=== PATIENT | male | born 1950 | race Caucasian/White ===

== ENCOUNTER 2023-04-28 12:42 | Outpatient (RCR) | payer OTHER, SELFPAY | END 2023-06-22 15:16 | disposition home or self-care (01) | LOC: PT 12:42 | DX: M54.16 Radiculopathy, lumbar region (principal) | CPT/HCPCS: 97113; 97161 ==

== ENCOUNTER 2024-07-17 08:19 | Outpatient (OUT) | payer OTHER, SELFPAY ==
--- OUTSIDE RECORDS SUMMARY | 2024-07-17 08:23 | XMS_ITS | CCD ---
Author Organization [facility] Care Team Providers Care Box Stapler Name Role Phone MIKAYLA, DR MORENO Admitting Unavailable MISC, DR MORENO Primary Care Unavailable MISC, DR MORENO Attending Unavailable BARBER, DR KAMAR Saleh Primary Care Unavailable MIS, DR MORENO Attending Unavailable MISC, DR MORENO Admitting Unavailable MIS, DR MORENO Consulting Unavailable ALONDRA, DR JULIAN Tirado Consulting Unavailable YOLIS BASS Primary Care Physician Romulo Russo Attending Unavailable Adan, LEI SELLER Laina Brady Attending Unavailable Pepito, DO Viet Haas Attending Provider John (Clinic), DO [place]os Primary Care Provider John (Clinic)Yolis Primary Care UnavailViet Meyer Attending Viet Ramos Admitting Unavai lable Allergies Allergy Classification Reported Allergen(s) Allergy Type Date of Onset Reaction(s) Facility (4 sources) Penicillin; Translations: [penicillin] Drug Allergy Eruption of skin (disorder) [facility] Repository Medications Current Medications Medication Drug Class(es) Dates Sig (Normalized) Sig (Original) atorvastatin (2 sources) HMG-CoA Reductase Inhibitor Start: 09-18-2021 atorvastatin Oral, Daily, Refills(s) 0, High cholesterol Start Date: 09/18/21 Status: Ordered Chlorthalidone (2 sources) Thiazide-like Diuretic Start: 09-18-2021 take 1 dose by mouth once daily chlorthalidone Oral, Daily, Refills(s) 0, diuretic/water pill Start Date: 09/18/21 Status: Ordered insulin aspart 100 units/mL injectable solution (2 sources) Start: 09-18-2021 insulin aspart 100 units/mL injectable solution SubCutaneous, TIDAC, Refills(s) 0, Blood glucose Start Date: 09/18/21 Status: Ordered Insulin Glargine (2 sources) Insulin Analog Start: 09-18-2021 inject 60 [IU] by subcutaneous injection twice daily insulin glargine 60 unit(s), SubCutaneous, BID, Refills(s) 0, Blood glucose Start Date: 09/18/21 Status: Ordered Lisinopril (2 sources) Angiotensin Converting Enzyme Inhibitor Start: 09-18-2021 lisinopril Oral, Daily, Refills(s) 0, High blood pressure Start Date: 09/18/21 Status: Ordered metFORMIN (2 sources) Biguanide Start: 09-18-2021 metformin Oral, Refills(s) 0, Blood glucose Start Date: 09/18/21 Status: Ordered 24 hr metoprolol succinate 100 mg extended release oral tablet (2 sources) beta-Adrenergic Diana Start: 09-18-2021 take 1 mg by mouth once daily metoprolol 100 mg ER Tab mg tab(s), Oral, Daily, Refills(s) 0, High blood pressure Start Date: 09/18/21 Status: Ordered Omeprazole (2 sources) Proton Pump Inhibitor Start: 09-18-2021 omeprazole Oral, Daily, Refills(s) 0, Control of stomach acid Start Date: 09/18/21 Status: Ordered pregabalin (2 sources) Start: 09-18-2021 pregabalin Oral, Refills(s) 0, Neuropathy Start Date: 09/18/21 Status: Ordered semaglutide (2 sources) Start: 09-18-2021 semaglutide Refills(s) 0, Blood glucose Start Date: 09/18/21 Status: Ordered tamsulosin (2 sources) alpha-Adrenergic Diana Start: 09-18-2021 take 1 mg by mouth once daily tamsulosin mg, Oral, Daily, Refills(s) 0, Other (see comment) Start Date: 09/18/21 Status: Ordered Problems Active Problems Problem Classification Problem Date Documented Da te Episodic/Chronic Anal and rectal conditions (2 sources) Rectal polyp; Translations: [Rectal polyp] Onset: 12-17-2021 Episodic Hemorrhoids (2 sources) Hemorrhoids; Translations: [Unspecified hemorrhoids] Onset: 12-17-2021 Episodic Other and unspecified benign neoplasm (3 sources) Polyp of colon; Translations: [Polyp of colon] Onset: 11-30-2021 Episodic Residual codes; unclassified (2 sources) Family history of cancer of colon 09-21-2021 Episodic Residual codes; unclassified (3 sources) Family history of polyp of colon; Translations: [Family history of colonic polyps] Onset: 12-17-2021 09-21-2021 Episodic Residual codes; unclassified (1 source) Family history of malignant neoplasm of digestive organ; Translations: [Family history of malignant neoplasm of digestive organs] Onset: 12-17-2021 Episodic Past or Other Problems Problem Classification Problem Date Documented Date Episodic/Chronic Malaise and fatigue (1 source) Weakness; Translations: [WEAKNESS] Onset: 06-05-2021 Episodic Other connective tissue disease (1 source) Pain in right leg; Translations: [PAIN IN RIGHT LEG] Onset: 06-05-2021 Episodic Other nervous system disorders (1 source) Other abnormalities of gait and mobility; Translations: [OTHER ABNORMALITIES GAIT AND MOBILITY] Onset: 06-05-2021 Episodic Other nervous system disorders (1 source) Unsteadiness on feet; Translations: [UNSTEADINESS ON FEET] Onset: 06-05-2021 Episodic Spondylosis; intervertebral disc disorders; other back problems (9 sources) Spinal stenosis, lumbar region with neurogenic claudication; Translations: [Radiculopathy, lumbar region] Onset: 04-20-2021 Episodic Results Test Name Value Interpretation Reference Range Facility Alanine aminotransferase [En zymatic activity/volume] in Serum or PlasmaOrdered By: Viet Beyer on 11-28-2023 ALT [Catalytic activity/Vol] 23 U/L 7-52 [facility] Albumin [Mass/volume] in Ser um or Plasma by Bromocresol green (BCG) dye binding methoOrdered By: Viet Beyer on 11-28-2023 Albumin BCG dye [Mass/Vol] 4.3 g/dL 3.5-5.7 [facility] Alkaline phosphatase [Enzyma tic activity/volume] in Serum or PlasmaOrdered By: Veit Beyer on 11-28-2023 ALP [Catalytic activity/Vol] 40 U/L 34-104 [facility] Aspartate aminotransferase [ Enzymatic activity/volume] in Serum or PlasmaOrdered By: Viet Beyer on 11-28-2023 AST [Catalytic activity/Vol] 16 U/L 13-39 [facility] Bilirubin Test strip Ql (U)O rdered By: Viet Beyer on 11-28-2023 Bilirubin Ql (U) Negative Negative [facility] Bilirubin.total [Mass/volume ] in Serum or PlasmaOrdered By: Viet Beyer on 11-28-2023 Bilirubin [Mass/Vol] 0.5 mg/dL 0.3-1.0 [facility] Calcium [Mass/volume] in Ser um or PlasmaOrdered By: Viet Beyer on 11-28-2023 Calcium [Mass/Vol] 9.5 mg/dL 8.6-10.3 [facility] Carbon dioxide, total [Moles /volume] in Serum or PlasmaOrdered By: Viet Beyer on 11-28-2023 CO2 [Moles/Vol] 30.7 mmol/L 21.0-31.0 [facility] Chloride [Moles/volume] in S christopher or PlasmaOrdered By: Viet Beyer on 11-28-2023 Chloride [Moles/Vol] 102 mmol/L 98-107 [facility] Color Auto (U)Ordered By: Rolan Beyer on 11-28-2023 Color (U) Yellow Yellow [facility] Comprehensive Metabolic Pane bryanna 11-28-2023 Albumin [Mass/Vol] 4.3 g/dL Normal 3.5-5.7 [facility] Comment on above: Performed By: #### C RADHA UA #### [facility] [address] [place] [address] Albumin/Globulin [Mass ratio] 1.7 {ratio} Normal [facility] Comment on above: Performed By: #### C RADHA UA #### [facility] [address] ALP [Catalytic activity/Vol] 40 U/L Normal 34-104 [facility] Comment on above: Result Comment: PERF ORMED BY: [place] [address] PATHOLOGIST CHAIR SPRINGER TERRELL PARIS M.D. Performed By: #### C MP, UA #### [facility] [address] [place] [address] [place] ALT [Catalytic activity/Vol] 23 U/L Normal 7-52 [facility] Comment on above: Performed By: #### C MP, UA #### [facility] [address] [place] [address] [place] Anion gap [Moles/Vol] 10.7 mmol/L Normal 6.0-15.0 [facility] Comment on above: Performed By: #### C MP, UA #### [facility] [address] AST [Catalytic activity/Vol] 16 U/L Normal 13-39 [facility] Comment on above: Performed By: #### C MP, UA #### [facility] [address] Bilirubin [Mass/Vol] 0.5 mg/dL Normal 0.3-1.0 [facility] Comment on above: Performed By: #### C MP, UA #### [facility] [address] [place] [address] [place] Calcium [Mass/Vol] 9.5 mg/dL Normal 8.6-10.3 [facility] Comment on above: Performed By: #### C MP, UA #### [facility] [address] [place] [address] [place] Chloride [Moles/Vol] 102 mmol/L Normal 98-107 [facility] Comment on above: Performed By: #### C MP, UA #### [facility] [address] [place] [id number] [place] CO2 [Moles/Vol] 30.7 mmol/L Normal 21.0-31.0 [facility] Comment on above: Performed By: #### C MP, UA #### [facility] [address] [place] [id number] [place] Creatinine [Mass/Vol] 1.34 mg/dL High 0.70-1.30 [facility] Comment on above: Performed By: #### C MP, UA #### [facility] [address] [place] [address] [place] GFR/1.73 sq M.predicted MDRD (S/P/Bld) [Vol rate/Area] 55.244 mL/min/{1.73_m2} Normal [facility] Comment on above: Performed By: #### C MP, UA #### [facility] [address] [place] [address] [place] Globulin (S) [Mass/Vol] 2.6 g/dL Normal [facility] Comment on above: Performed By: #### C MP, UA #### [facility] [address] Glucose [Mass/Vol] 143 mg/dL High 70-100 [facility] Comment on above: Result Comment: Formerly named [facility] Glucose Reference Range is dependent on time and content of last meal. Glucose of more than 200 mg/dL in a nonstressed, ambulatory subject supports the diagnosis of Diabetes Mellitus. ADA recommended reference range Performed By: #### C MP, UA #### [address] Potassium [Moles/Vol] 4.4 mmol/L Normal 3.5-5.1 [facility] Comment on above: Performed By: #### C MP, UA #### [address] Protein [Mass/Vol] 6.9 g/dL Normal 6.4-8.9 [facility] Comment on above: Performed By: #### C MP, UA #### [facility] [address] [place] [address] [place] Sodium [Moles/Vol] 139 mmol/L Normal 136-145 [facility] Comment on above: Performed By: #### C MP, UA #### [facility] [address] [place] [address] [place] Urea nitrogen [Mass/Vol] 23 mg/dL Normal 7-25 [facility] Comment on above: Performed By: #### C MP, UA #### [place] [id number] [facility] Creatinine [Mass/volume] in Serum or PlasmaOrdered By: Viet Beyer on 11-28-2023 Creatinine [Mass/Vol] 1.34 mg/dL 0.70-1.30 [facility] Globulin Calc (S) [Mass/Vol] Ordered By: Viet Damico on 11-28-2023 Globulin (S) [Mass/Vol] 2.6 g/dL [facility] Glucose [Mass/volume] in Ser um or PlasmaOrdered By: Viet Damico on 11-28-2023 Glucose [Mass/Vol] 143 mg/dL 70-100 [facility] Comment on above: ADA recommended refe rence rangeRandom Glucose Reference Range is dependent on time and content of last meal. Glucose of more than 200 mg/dL in a nonstressed, ambulatory subject supports the diagnosis of Diabetes Mellitus. Ketones Auto test strip (U) [Mass/Vol]Ordered By: Viet Beyer on 11-28-2023 Ketones (U) [Mass/Vol] Negative Negative [facility] Nitrite Test strip Ql (U)Ord ered By: Viet [facility] on 11-28-2023 Nitrite Ql (U) Negative Negative [facility] No Panel InformationOrdered By: Viet Beyer on 11-28-2023 Estimated GFR (CKD-EPI) 55.244 mL/Min [facility] Creatinine Clearance (Chem N/A [facility] Potassium [Moles/volume] in Serum or PlasmaOrdered By: Viet Beyer on 11-28-2023 Potassium [Moles/Vol] 4.4 mmol/L 3.5-5.1 [facility] Protein Auto test strip (U) [Mass/Vol]Ordered By: Viet Beyer on 11-28-2023 Protein (U) [Mass/Vol] Negative Negative [facility] Protein [Mass/volume] in Ser um or PlasmaOrdered By: Viet Damico on 11-28-2023 Protein [Mass/Vol] 6.9 g/dL 6.4-8.9 [facility] Serum or plasma albumin/glob ulin mass ratioOrdered By: Viet Damico on 11-28-2023 Albumin/Globulin [Mass ratio] 1.7 {ratio} [facility] Serum or plasma anion gap de terminationOrdered By: Viet Beyer on 11-28-2023 Anion gap [Moles/Vol] 10.7 mmol/L 6.0-15.0 [facility] Sodium [Moles/volume] in Ser um or PlasmaOrdered By: Viet Damico on 11-28-2023 Sodium [Moles/Vol] 139 mmol/L 136-145 [facility] Specific gravity Auto test s trip (U) [Rel density]Ordered By: Viet [facility] on 11-28-2023 Specific gravity (U) [Rel density] 1.032 1.001-1.030 [facility] Urea nitrogen [Mass/volume] in Serum or PlasmaOrdered By: Viet Damico on 11-28-2023 Urea nitrogen [Mass/Vol] 23 mg/dL 03-29 [facility] Urinalysison 11-28-2023 Appearance (U) Clear Normal Clear [facility] Comment on above: Order Comment: Name Collection Type:: Clean-Voided Midstream Performed By: #### C MP, UA #### [facility] [address] [place] [address] Bilirubin,Urine Negative Normal Negative [facility] Comment on above: Order Comment: Name Collection Type:: Clean-Voided Midstream Performed By: #### C MP, UA #### [facility] [address] [place] [address] [place] Color (U) Yellow Normal Yellow [facility] Comment on above: Order Comment: Name Collection Type:: Clean-Voided Midstream Performed By: #### C MP, UA #### [facility] [address] [place] [address] [place] Glucose Ql (U) >=1000 High Normal [facility] Comment on above: Order Comment: Name Collection Type:: Clean-Voided Midstream Performed By: #### C MP, UA #### [facility] [address] [place] [address] [place] Ketones Ql (U) Negative Normal Negative [facility] Comment on above: Order Comment: Name Collection Type:: Clean-Voided Midstream Performed By: #### C MP, UA #### [address] Leukocyte esterase Test strip Ql (U) Negative Normal Negative [facility] Comment on above: Order Comment: Name Collection Type:: Clean-Voided Midstream Performed By: #### C MP, UA #### [place] [address] [place] Nitrite,Urine Negative Normal Negative [facility] Comment on above: Order Comment: Name Collection Type:: Clean-Voided Midstream Performed By: #### C MP, UA #### [address] Occult Blood,Urine Negative Normal Negative [facility] Comment on above: Order Comment: Name Collection Type:: Clean-Voided Midstream Result Comment: PERF ORMED BY: [place] [address] PATHOLOGIST CHAIR SPRINGER TERRELL PARIS M.D. Performed By: #### C MP, UA #### [place] [address] [place] pH (U) 5.0 [pH] Normal 5.0-9.0 [facility] Comment on above: Order Comment: Name Collection Type:: Clean-Voided Midstream Performed By: #### C MP, UA #### [place] [address] [place] Protein,Urine Negative Normal Negative [facility] Comment on above: Order Comment: Name Collection Type:: Clean-Voided Midstream Performed By: #### C MP, UA #### [place] [address] [place] Specificy [place],Urine 1.032 High 1.001-1.030 [facility] Comment on above: Order Comment: Name Collection Type:: Clean-Voided Midstream Performed By: #### C MP, UA #### [address] [address] [place] Urobilinogen,Urine Normal Normal Normal [facility] Comment on above: Order Comment: Name Collection Type:: Clean-Voided Midstream Performed By: #### C MP, UA #### [facility] [address] [place] [id number] [place] Urine clarity by refractomet ry automatedOrdered By: Viet Beyer on 11-28-2023 Clarity Refractometry automated (U) Clear Clear [facility] Urine glucose measurement by automated test strip (mass/volume)Ordered By: Viet Beyer on 11-28-2023 Glucose Auto test strip (U) [Mass/Vol] >=1000 mg/dL Normal [facility] Urine hemoglobin detection b y automated test stripOrdered By: Viet Beyer on 11-28-2023 Hemoglobin Auto test strip Ql (U) Negative Negative [facility] Urine leukocyte esterase det ection by automated test stripOrdered By: [facility] Leukocyte esterase Auto test strip Ql (U) Negative Negative [facility] Urobilinogen Auto test strip (U) [Mass/Vol]Ordered By: [facility] on 11-28-2023 Urobilinogen (U) [Mass/Vol] Normal mg/dL Normal [facility] pH Auto test strip (U)Ordere d By: Viet Damico on 11-28-2023 pH (U) 5.0 [pH] 5.0-9.0 [facility] Family Medicine Office/Clini c Noteon 06-22-2023 Family Medicine Office/Clinic Note Chief Complaint Subsequent Medicare Wellness Visit History of Present Illness I was in the office and available for consultation and to provide direct supervision at the time of this visit. I have provided supervision of the care team and have reviewed this chart and office note and agree with the plan of care. Medicare/Medicaid Summary Chief Complaint : Subsequent Medicare Wellness Visit Patient Counseled : Nutrition, Physical activity, Elevated BMI Height/Length Measured : 181 cm(Converted to: 5 ft 11 in, 71.26 in) Weight Measured : 131.4 kg(Converted to: 289 lb 11 Ounces, 289.687 lb) Body Mass Index Measured : 40.11 kg/m2 Height in Inches : 71 in Weight in Pounds : 289.08 lb Waist Measurement : 140 cm(Converted to: 55 in) Systolic Blood Pressure : 128 mmHg Diastolic Blood Pressure : 70 mmHg Blood Pressure Location : Left arm Blood Pressure Position : Sitting O2 Sat Resting/Exertion Alpha : Resting Peripheral Pulse Rate : 71 bpm SpO2 : 94 % Pain Present : No actual or suspected pain Numeric Rating Pain Score : 5 Joel Holliday - 06/17/2023 10:30 EDT Patient Preferred Method of Communication Phone Call Hearing and Vision Screening FT FT Whisper Test Comments : no issues or concerns Vision Screen Comments : Follows Dr. Simons yearly Joel Holliday - 06/17/2023 10:30 EDT Advance Directive FT Advance Directive : No Patient Wishes to Receive Further Information on Advance Directives : Yes Organ Donation Consent : Yes Joel Holliday - 06/17/2023 10:30 EDT Procedures / Surgeries FT - Procedure History (As Of: 06/17/2023 11:02:07 EDT) Anesthesia Minutes: 0 ; Procedure Name: Colonoscopy ; Procedure Minutes: 0 ; Last Reviewed Dt/Tm: 06/17/2023 10:55:00 EDT Procedure Dt/Tm: 11/30/2021 ; Provider: Yamileth KIM MD; Anesthesia Minutes: 0 ; Procedure Name: Colonoscopy ; Procedure Minutes: 0 ; Comments: 11/30/2021 14:36 EDT - Stacey King RN colon polyps x4, IH ; Last Reviewed Dt/Tm: 06/17/2023 10:55:00 EDT Family History Family History (As Of: 06/17/2023 11:02:08 EDT) Mother: Relation: Mother ; Gender: Female ; Nomenclature: Diabetes mellitus type 2 ; Value: Negative Medicare/Medicaid Social History FT Social History (As Of: 06/17/2023 11:02:08 EDT) Alcohol: 1-2 times per week, Household alcohol concerns: No. (Last Updated: 06/17/2023 10:56:28 EDT by Joel Holliday) Tobacco: Former smoker, quit more than 30 days ago Tobacco Use:. Household tobacco concerns: No. Comments: 06/17/2023 10:58 - Joel Holliday: quit in 1976 (Last Updated: 06/17/2023 10:58:25 EDT by Joel Holliday) Health Risk Assessment FT HRA little interest or pleasure? : No HRA down, depressed, or hopeless? : No Hazards in your house? : No Fall Risk Past Year : No Worried About Falling : No Use a Cane or Walker? : Yes Someone Helps You in the Morning : No Fallen or felt dizzy standing up? : No Assistance with personal care? : No Trouble taking meds correctly? : No HRA Pain Present : Yes Primary Pain Location : Back Numeric Rating Pain Scale : 5 = Moderate pain Numeric Rating Pain Score : 5 (Comment: is currently enrolled in PT, takes tylenol as needed, states effective [Joel Holliday 06/17/2023 10:30 EDT] ) Able to walk without help? : Yes Ability to shop w/out help : Yes Prepare your own meals? : Yes Housework without help? : Yes Handle money without help : Yes Track own medications without help? : Yes Overall mood for past four weeks : Pretty well General health rating : Good Someone avail. to help if needed? : Yes, quite a bit Phys. & emotional health limit social act? : Slightly Joel Holliday 06/17/2023 10:30 EDT Misc Health Risks Grid Sexual problems : Always Trouble eating well : Seldom Teeth or denture problems : Sometimes Problems using the telephone : Sometimes Joel Holliday 06/17/2023 10:30 EDT Confident you control health problems : Somewhat confident Difficulties driving your car? : No Seatbelts : I always fasten my seat belt Joel Holliday 06/17/2023 10:30 EDT Depression Screening Little Interest, Pleasure in Activities (ref) : Not at all Feeling Down, Depressed, Hopeless : Not at all Initial Depression Screening Score : 0 Depression Screening Result : Negative Joel Holliday 06/17/2023 10:30 EDT Social Determinants (PRAPARE) What is your housing situation today? : I have housing You or Family Gone Without Household Needs Past Year : No No Transport to Med Appts/Meetings/Work /Meds/Necessities : No Afraid of Partner or Ex-partner in the Past Year : No Joel Holliday 06/17/2023 10:30 EDT Mini-Cog FT CDT(Clock Drawing Test) score : Normal # of Recalled Words : 3 Mini-Cog Score : Negative for cognitive impairment Joel Holliday - 06/17/2023 10:30 EDT Mini-Mental State Examination (MMSE) FT Date : 06/17/2023 EDT Joel Holliday - 06/17/2023 10:30 EDT Image 1 - Images current (more content not included)... Normal [facility] Comment on above: Result Comment: Elec tronically Signed By: Romulo Russo MD\.br\Date and Time Signed: 06/22/23 12:06 EDT\.br\Electronically Co-Signed By: Joel Holliday\.br\Date and Time Co-Signed: 06/17/23 13:25 EDT [facility] 06-22-2023 Lab Reports [id number] Normal [facility] 06-20-2023 Lab Reports [id number] Normal [facility] Ambulatory Visit Summaryon 1 Ambulatory Visit Summary ZI GARCIA :1950 Visit Date:06/17/2023 Ambulatory Visit Instructions Your Diagnosis Annual visit for general adult medical examination without abnormal findings Advanced care planning/counseling discussion Diabetes mellitus Morbid obesity due to excess calories Adult BMI 40.0-44.9 kg/sq m Hyperlipidemia Sleep apnea Your Care Team Attending Physician - Laina Luna Primary Care Physician - YOLIS BASS DO This Is Your Medications List ascorbic acid aspirin atorvastatin chlorthalidone cholecalciferol clotrimazole cyanocobalamin diclofenac empagliflozin garlic icosapent (Icosapent Ethyl) insulin aspart (insulin aspart 100 units/mL injectable solution) insulin glargine lisinopril metformin metoprolol (metoprolol 100 mg ER Tab) miconazole omeprazole pregabalin psyllium semaglutide tamsulosin vitamin E Procedures Performed Colonoscopy (11/30/2021), Colonoscopy. Discharge Vitals Heart Rate (Peripheral) 71 Blood Pressure 128/70 Height 181 cm Height 71 in Weight 131.4 kg Weight 289.08 lb BMI 40.11 What to do next Scheduled Follow-Up Appointments Tuesday 11:00 AM EDT Where: [facility] Ambulatory Visit Summary ZI GARCIA :1950 Visit Date:06/17/2023 Ambulatory Visit Instructions Your Care Team Attending Physician - Laina Luna Primary Care Physician - YOLIS BASS DO This Is Your Medications List atorvastatin chlorthalidone insulin aspart (insulin aspart 100 units/mL injectable solution) insulin glargine lisinopril metformin metoprolol (metoprolol 100 mg ER Tab) omeprazole pregabalin semaglutide tamsulosin Procedures Performed Colonoscopy (11/30/2021), Colonoscopy. Discharge Vitals Heart Rate (Peripheral) 71 Blood Pressure 128/70 Height 181 cm Height 71 in Weight 131.4 kg Weight 289.08 lb BMI 40.11 Medications What How Much When Instructions Unchanged atorvastatin By Mouth Every day Unchanged chlorthalidone By Mouth Every day Unchanged insulin aspart (insulin aspart 100 units/ mL injectable solution) Subcutaneous Before meals Unchanged insulin glargine 60 Units Subcutaneous 2 times a day Unchanged lisinopril By Mouth Every day Unchanged metformin By Mouth Unchanged metoprolol (metoprolol 100 mg ER Tab) By Mouth Every day Unchanged omeprazole By Mouth Every day Unchanged pregabalin By Mouth Unchanged semaglutide Unchanged tamsulosin By Mouth Every day Allergies penicillin (Rash) Problems Ongoing - Any problem that you are currently receiving treatment for. Colon polyps Diabetes mellitus Family history of colon cancer Family history of polyps in the colon Hemorrhoids Hyperlipidemia Rectal polyp Sleep apnea [facility] Auth for Release of Medical Recordson 06-17-2023 Auth for Release of Medical Records [id number] [facility] Patient Educationon 06-17-20 23 Patient Education Caregiving Fall Prevention in the Home, Adult Falls can cause injuries and affect people of all ages. There are many simple things that you can do to make your home safe and to help prevent falls. Ask for help when making these changes, if needed. What actions can I take to prevent falls? General instructions ? Use good lighting in all rooms. Replace any light bulbs that burn out, turn on lights if it is dark, and use night-lights. ? Place frequently used items in [id number]-dl-[id number] places. Lower the shelves around your home if necessary. ? Set up furniture so that there are clear paths around it. Avoid moving your furniture around. ? Remove throw rugs and other tripping hazards from the floor. ? Avoid walking on wet floors. ? Fix any uneven floor surfaces. ? Add color or contrast paint or tape to grab bars and handrails in your home. Place contrasting color strips on the first and last steps of staircases. ? When you use a stepladder, make sure that it is completely opened and that the sides and supports are firmly locked. Have someone hold the ladder while you are using it. Do not climb a closed stepladder. ? Know where your pets are when moving through your home. What can I do in the bathroom? ? Keep the floor dry. Immediately clean up any water that is on the floor. ? Remove soap buildup in the tub or shower regularly. ? Use nonskid mats or decals on the floor of the tub or shower. ? Attach bath mats securely with double-sided, nonslip rug tape. ? If you need to sit down while you are in the shower, use a plastic, nonslip stool. ? Install grab bars by the toilet and in the tub and shower. Do not use towel bars as grab bars. What can I do in the bedroom? ? Make sure that a bedside light is easy to reach. ? Do not use oversized bedding that reaches the floor. ? Have a firm chair that has side arms to use for getting dressed. What can I do in the kitchen? ? Clean up any spills right away. ? If you need to reach for something above you, use a sturdy step stool that has a grab bar. ? Keep electrical cables out of the way. ? Do not use floor kyrgyz or wax that makes floors slippery. If you must use wax, make sure that it is non-skid floor wax. What can I do with my stairs? ? Do not leave any items on the stairs. ? Make sure that you have a light switch at the top and the bottom of the stairs. Have them installed if you do not have them. ? Make sure that there are handrails on both sides of the stairs. Fix handrails that are broken or loose. Make sure that handrails are as long as the staircases. ? Install non-slip stair treads on all stairs in your home. ? Avoid having throw rugs at the top or bottom of stairs, or secure the rugs with carpet tape to prevent them from moving. ? Choose a carpet design that does not hide the edge of steps on the stairs. ? Check any carpeting to make sure that it is firmly attached to the stairs. Fix any carpet that is loose or worn. What can I do on the outside of my home? ? Use bright outdoor lighting. ? Regularly repair the edges of walkways and driveways and fix any cracks. ? Remove high doorway thresholds. ? Trim any shrubbery on the main path into your home. ? Regularly check that handrails are securely fastened and in good repair. Both sides of all steps should have handrails. ? Install guardrails along the edges of any raised decks or porches. ? Clear walkways of debris and clutter, including tools and rocks. ? Have leaves, snow, and ice cleared regularly. ? Use sand or salt on walkways during winter months. ? In the garage, clean up any spills right away, including grease or oil spills. What other actions can I take? ? Wear closed-toe shoes that fit well and support your feet. Wear shoes that have rubber soles or low heels. ? Use mobility aids as needed, such as canes, walkers, scooters, and crutches. ? Review your medicines with your health care provider. Some medicines can cause dizziness or changes in blood pressure, which increase your risk of falling. Talk with your health care provider about other ways that you can decrease your risk of falls. This may include working with a physical therapist or driver trainer to improve your strength, balance, and endurance. Where to find more information ? Centers for Disease Control and Prevention, [place]: www.cdc.gov ? National [place] on Aging: www.dat.nih.gov Contact a health care provider if: ? You are afraid of falling at home. ? You feel weak, drowsy, or dizzy at home. ? You fall at home. Summary ? There are many simple things that you can do to make your home safe and to help prevent falls. ? Ways to make your home safe include removing tripping hazards and installing grab bars in the bathroom. ? Ask for help when making these changes in your home. This information is not intended to replace advice given to you by your health ca (more content not included)... Normal [facility] Screenson 06-17-2023 Screens [id number] Normal [facility] MRI LSPINE WO CONon 04-20-20 21 MRI LSPINE WO CON EXAMINATION: MRI LSPINE WO CON HISTORY: Lumbar radiculopathy with perceived weakness, bilateral leg pain COMPARISON: MRI lumbar spine 08/13/2020 TECHNIQUE: A variety of imaging planes and parameters were utilized for visualization of suspected pathology. FINDINGS: For the purposes of numbering, sagittal T2 image # 7 extends from the T11-12 vertebral body superiorly to the S3 level inferiorly. PARASPINAL AREA: Normal with no visible mass. BONES: No fracture, pars defect, or osseous lesion. CORD/CAUDA EQUINA: Normal caliber, contour, and signal intensity. DISC LEVELS: 12-L1: No significant disc/facet abnormality, spinal stenosis, or foraminal stenosis. L1-L2: No significant disc/facet abnormality, spinal stenosis, or foraminal stenosis. L2-L3: Moderate central canal and left foramen narrowing. Mild-moderate right foramen narrowing. Moderate diffuse disc bulging without disc height reduction. Mild degenerative facet arthropathy and ligamentum flavum thickening bilaterally. L3-L4: Moderate central canal and left foramen narrowing. Mild to moderate right foramen narrowing. Moderate diffuse disc bulging without disc height reduction. Moderate left, mild right degenerative facet arthropathy. L4-L5: Minimal central canal and bilateral foramen narrowing. Mild diffuse disc bulging without disc height reduction. Moderate degenerative facet arthropathy bilaterally. L5-S1: Early degenerative disc disease is present without focal protrusion or neural impingement. IMPRESSION: 1. Moderate central canal and foraminal narrowing at L2-3 and L3-4 secondary to degenerative disc disease and degenerative facet arthropathy. Electronically authenticated by: JULIAN CANTU Date: 2021-04-20 14:45 Normal [facility] XR LSPINE 2_3 VIEWSon 2020 XR LSPINE 2_3 VIEWS EXAMINATION: XR LSPINE 2_3 VIEWS HISTORY: Lumbar radiculopathy ; chronic lumbar pain radiating into right thigh COMPARISON: No relevant comparison available. FINDINGS: BONES: Mild degenerative facet arthropathy L3-4 through L5-S1. No fracture, spondylolisthesis, bone lesion. DISC SPACES: Posterior disc-osteophyte complexes at L2-3, L3-4, and likely L4-5, L5-S1. No significant disc height reduction at these levels. PARASPINOUS: Negative. No paraspinous abnormality is seen. OTHER: Negative. IMPRESSION: 1. Suspect mild-moderate posterior disc bulging and mild degenerative facet arthropathy of the mid and lower lumbar spine. Consider MRI for further evaluation. Electronically authenticated by: JULIAN CANTU Date: 2021-04-20 11:25 Normal [facility] Vital Signs Date Time Vital Sign Value Performing Clinician Facility 12-17-2021 11:48-0400 Diastolic blood pressure 73 mm[Hg] KaitlinJoySportsLuna [facility] 12-17-2021 11:48-0400 Mean blood pressure 94 mm[Hg] Akitlin Luna [facility] 12-17-2021 11:48-0400 Systolic blood pressure 135 mm[Hg] Kaitlin Luna [facility] 12-17-2021 11:43-0400 Diastolic blood pressure 71 mm[Hg] Kaitlin Luna [facility] 12-17-2021 11:43-0400 Mean blood pressure 98 mm[Hg] Kaitlin Luna [facility] 12-17-2021 11:43-0400 Systolic blood pressure 151 mm[Hg] Kaitlinzaheer HuttonLuna [facility] 12-17-2021 11:35-0400 Blood Pressure Location Kaitlinzaheer HuttonLuna [facility] 12-17-2021 11:35-0400 Diastolic blood pressure 77 mm[Hg] Kaitlinzaheer HuttonLuna [facility] 12-17-2021 11:35-0400 Heart rate 71 /min Kaitlinzaheer HuttonLuna [facility] 12-17-2021 11:35-0400 SaO2% (BldA) [Mass fraction] 93 % Kaitlinzaheer HuttonLuna [facility] 12-17-2021 11:35-0400 Systolic blood pressure 182 mm[Hg] Kaitlinzaheer HuttonLuna [facility] 11-30-2021 14:15-0400 Diastolic blood pressure 98 mm[Hg] Carson SALAM [facility] 11-30-2021 14:15-0400 Heart rate 65 /min Carson SALAM [facility] 11-30-2021 14:15-0400 Respiratory rate 18 /min Carson SALAM [facility] 11-30-2021 14:15-0400 SaO2% (BldA) [Mass fraction] 92 % Carson SALAM [facility] 11-30-2021 14:15-0400 Systolic blood pressure 159 mm[Hg] Carson SALAM [facility] 11-30-2021 14:00-0400 Diastolic blood pressure 105 mm[Hg] Carson SALAM [facility] 11-30-2021 14:00-0400 Heart rate 68 /min Carson SALAM [facility] 11-30-2021 14:00-0400 SaO2% (BldA) [Mass fraction] 95 % Carson SALAM [facility] 11-30-2021 14:00-0400 Systolic blood pressure 181 mm[Hg] Carson SALAM [facility] 11-30-2021 13:55-0400 Diastolic blood pressure 91 mm[Hg] Carson SALAM [facility] 11-30-2021 13:55-0400 Heart rate 90 /min Carson SALAM [facility] 11-30-2021 13:55-0400 Respiratory rate 14 /min Carson SALAM [facility] 11-30-2021 13:55-0400 SaO2% (BldA) [Mass fraction] 94 % Carson SALAM [facility] 11-30-2021 13:55-0400 Systolic blood pressure 157 mm[Hg] Carson SALAM [facility] 11-30-2021 13:52-0400 Body temperature 96.98 [degF] Carson SALAM [facility] 11-30-2021 13:52-0400 Respiratory rate 17 /min Carson SALAM [facility] 11-30-2021 12:31-0400 Blood Pressure Location Carsonjordyn KIM [facility] 11-30-2021 12:31-0400 Body temperature 98.06 [degF] Yamileth KIM [facility] Encounters Encounter Date Encounter Type Care Provider Facility Start: 06-19-2024 ambulatory Romulo Russo Facility :[facility] Start: 11-28-2023 End: 11-28-2023 ambulatory Yolis Bass (Clinic) Facility:[facility] Start: 11-28-2023 End: 11-28-2023 ambulatory DO Yolis Bass (Clinic) Work Phone: [facility] Work Phone: Start: 11-28-2023 End: 11-28-2023 Patient encounter procedure DO Yolis Bass ([facility]) Work Phone: [facility] [place] Work Phone: Start: 06-17-2023 End: 06-18-2023 ambulatory LEI SELLER Laina Arellano Facility:[facility] Start: 12-17-2021 End: 12-17-2021 Patient encounter procedure Kaitlin Carrasco [facility] Start: 11-30-2021 End: 11-30-2021 Patient encounter procedure Yamileth KIM [facility] Start: 06-02-2021 End: 07-23-[address] DOCTOR DEGROOT Facility:[facility] Start: 04-20-2021 End: 04-21-[address] KAMAR BARBER Facility:[facility] Procedures Date Procedure Procedure Detail Performing Clinician Start: 11-30-2021 Colonoscopy Yamileth Avila Comment on above: colon polyps x4, [facility] Colonoscopy Yamileth KIM Payers Date Payer Category Payer Self-pay 2021 Unknown [id number] 2019 Unknown [id number] 1950 Unknown [id number] 1950 Unknown [id number] [id number] 1950 Unknown [id number] [id number] 1950 Unknown [id number] Unknown [id number] [id number] Social History Date Type Detail Facility Start: 09-21-2021 End: 12-17-2021 Tobacco smoking status Ex-smoker (finding) [facility] Sex Assigned At Male [facility] Start: 1950 Sex Assigned At Male F [facility] Hospital Discharge instructions 12-17-2021 Note Date & Type Note Facility 12-17-2021 Hospital Discharg e instructions Patient Education 12/17/2021 11:21:48 High-Fiber Diet High-Fiber Diet Fiber, also called dietary fiber, is a type of carbohydrate that is found in fruits, vegetables, whole grains, and beans. A high-fiber diet can have many health benefits. Your health care provider may recommend a high-fiber diet to help: Prevent constipation. Fiber can make your bowel movements more regular. Lower your cholesterol. Relieve the following conditions: ?Swelling of veins in the anus (hemorrhoids). ?Swelling and irritation (inflammation) of specific areas of the digestive tract (uncomplicated diverticulosis). ?A problem of the large intestine (colon) that sometimes causes pain and diarrhea (irritable bowel syndrome, IBS). Prevent overeating as part of a weight-loss plan. Prevent heart disease, type 2 diabetes, and certain cancers. What is my plan? The recommended daily fiber intake in grams (g) includes: 38 g for men age 50 or younger. 30 g for men over age 50. 25 g for women age 50 or younger. 21 g for women over age 50. You can get the recommended daily intake of dietary fiber by: Eating a variety of fruits, vegetables, grains, and beans. Taking a fiber supplement, if it is not possible to get enough fiber through your diet. What do I need to know about a high-fiber diet? It is better to get fiber through food sources rather than from fiber supplements. There is not a lot of research about how effective supplements are. Always check the fiber content on the nutrition facts label of any prepackaged food. Look for foods that contain 5 g of fiber or more per serving. Talk with a diet and ultrasound specialist (dietitian) if you have questions about specific foods that are recommended or not recommended for your medical condition, especially if those foods are not listed below. Gradually increase how much fiber you consume. If you increase your intake of dietary fiber too quickly, you may have bloating, cramping, or gas. Drink plenty of water. Water helps you to digest fiber. What are tips for following this plan? Eat a wide variety of high-fiber foods. Make sure that half of the grains that you eat each day are whole grains. Eat breads and cereals that are made with whole-grain flour instead of refined flour or white flour. Eat brown rice, bulgur wheat, or millet instead of white rice. Start the day with a breakfast that is high in fiber, such as a cereal that contains 5 g of fiber or more per serving. Use beans in place of meat in soups, salads, and pasta dishes. Eat high-fiber snacks, such as berries, raw vegetables, nuts, and popcorn. Choose whole fruits and vegetables instead of processed forms like juice or sauce. What foods can I eat? Fruits Berries. Pears. Apples. Oranges. Avocado. Prunes and raisins. Dried figs. Vegetables Sweet potatoes. Spinach. Kale. Artichokes. Cabbage. Broccoli. Cauliflower. Green peas. Carrots. Squash. Grains Whole-grain breads. Multigrain cereal. Oats and oatmeal. Brown rice. Barley. Bulgur wheat. Millet. Quinoa. Bran muffins. Popcorn. [place] wafer crackers. Meats and other proteins Minto, kidney, and escobar beans. Soybeans. Split peas. Lentils. Nuts and seeds. Dairy Fiber-fortified yogurt. Beverages Fiber-fortified soy milk. Fiber-fortified orange juice. Other foods Fiber bars. The items listed above may not be a complete list of recommended foods and beverages. Contact a dietitian for more options. What foods are not recommended? Fruits Fruit juice. Cooked, strained fruit. Vegetables Fried potatoes. Canned vegetables. Well-cooked vegetables. Grains White bread. Pasta made with refined flour. White rice. Meats and other proteins Fatty cuts of meat. Fried chicken or fried fish. Dairy Milk. Yogurt. Cream cheese. Sour cream. Fats and oils [place]. Beverages Soft drinks. Other foods Cakes and pastries. The items listed above may not be a complete list of foods and beverages to avoid. Contact a dietitian for more information. Summary Fiber is a type of carbohydrate. It is found in fruits, vegetables, whole grains, and beans. There are many health benefits of eating a high-fiber diet, such as preventing constipation, lowering blood cholesterol, helping with weight loss, and reducing your risk of heart disease, diabetes, and certain cancers. Gradually increase your intake of fiber. Increasing too fast can result in cramping, bloating, and gas. Drink plenty of water while you increase your fiber. The best sources of fiber include whole fruits and vegetables, whole grains, nuts, seeds, and beans. This information is not intended to replace advice given to you by your health care provider. Make sure you discuss any questions you have with your health care provider. Document Released: 2006 Document Revised: 06/26/2018 Document Reviewed: 06/26/2018 evly Patient Education 2020 [employer]. 12/17/2021 11:21:45 Hemorrhoids Hemorrhoids Hemorrhoids are swollen veins in and around the rectum or anus. There are two types of hemorrhoids: Internal hemorrhoids. These occur in the veins that are just inside the rectum. They may poke through to the outside and become irritated and painful. External hemorrhoids. These occur in the veins that are outside the anus and can be felt as a painful swelling or hard lump near the anus. Most hemorrhoids do not cause serious problems, and they can be managed with home treatments such as diet and lifestyle changes. If home treatments do not help the symptoms, procedures can be done to shrink or remove the hemorrhoids. What are the causes? This condition is caused by increased pressure in the anal area. This pressure may result from various things, including: Constipation. Straining to have a bowel movement. Diarrhea. . Obesity. Sitting for long periods of time. Heavy lifting or other activity that causes you to strain. Anal sex. Riding a bike for a long period of time. What are the signs or symptoms? Symptoms of this condition include: Pain. Anal itching or irritation. Rectal bleeding. Leakage of stool (feces). Anal swelling. One or more lumps around the anus. How is this diagnosed? This condition can often be diagnosed through a visual exam. Other exams or tests may also be done, such as: An exam that involves feeling the rectal area with a gloved hand (digital rectal exam). An exam of the anal canal that is done using a small tube (anoscope). A blood test, if you have lost a significant amount of blood. A test to look inside the colon using a flexible tube with a camera on the end (sigmoidoscopy or colonoscopy). How is this treated? This condition can usually be treated at home. However, various procedures may be done if dietary changes, lifestyle changes, and other home treatments do not help your symptoms. These procedures can help make the hemorrhoids smaller or remove them completely. Some of these procedures involve surgery, and others do not. Common procedures include: Rubber band ligation. Rubber bands are placed at the base of the hemorrhoids to cut off their blood supply. Sclerotherapy. Medicine is injected into the hemorrhoids to shrink them. Infrared coagulation. A type of light energy is used to get rid of the hemorrhoids. Hemorrhoidectomy surgery. The hemorrhoids are surgically removed, and the veins that supply them are tied off. Stapled hemorrhoidopexy surgery. The surgeon taylor the base of the hemorrhoid to the rectal wall. Follow these instructions at home: Eating and drinking Eat foods that have a lot of fiber in them, such as whole grains, beans, nuts, fruits, and vegetables. Ask your health care provider about taking products that have added fiber (fiber supplements). Reduce the amount of fat in your diet. You can do this by eating low-fat dairy products, eating less red meat, and avoiding processed foods. Drink enough fluid to keep your urine pale yellow. Managing pain and swelling Take warm sitz baths for 20 minutes, 3 4 times a day to ease pain and discomfort. You may do this in a bathtub or using a portable sitz bath that fits over the toilet. If directed, apply ice to the affected area. Using ice packs between sitz baths may be helpful. ?Put ice in a plastic bag. ?Place a towel between your skin and the bag. ?Leave the ice on for 20 minutes, 2 3 times a day. General instructions Take rmvh-pwy-zlfcxew and prescription medicines only as told by your health care provider. Use medicated creams or suppositories as told. Get regular exercise. Ask your health care provider how much and what kind of exercise is best for you. In general, you should do moderate exercise for at least 30 minutes on most days of the week (150 minutes each week). This can include activities such as walking, biking, or yoga. Go to the bathroom when you have the urge to have a bowel movement. Do not wait. Avoid straining to have bowel movements. Keep the anal area dry and clean. Use wet toilet paper or moist towelettes after a bowel movement. Do not sit on the toilet for long periods of time. This increases blood pooling and pain. Keep all follow-up visits as told by your health care provider. This is important. Contact a health care provider if you have: Increasing pain and swelling that are not controlled by treatment or medicine. Difficulty having a bowel movement, or you are unable to have a bowel movement. Pain or inflammation outside the area of the hemorrhoids. Get help right away if you have: Uncontrolled bleeding from your rectum. Summary Hemorrhoids are swollen veins in and around the rectum or anus. Most hemorrhoids can be managed with home treatments such as diet and lifestyle changes. Taking warm sitz baths can help ease pain and discomfort. In severe cases, procedures or surgery can be done to shrink or remove the hemorrhoids. This information is not intended to replace advice given to you by your health care provider. Make sure you discuss any questions you have with your health care provider. Document Released: 08/19/2001 Document Revised: 01/18/2020 Document Reviewed: 01/11/2019 [employer] Patient Education 2020 [employer] 12/17/2021 11:21:43 Colon Polyps Colon Polyps Polyps are tissue growths inside the body. Polyps can grow in many places, including the large intestine (colon). A polyp may be a round bump or a mushroom-shaped growth. You could have one polyp or several. Most colon polyps are noncancerous (benign). However, some colon polyps can become cancerous over time. Finding and removing the polyps early can help prevent this. What are the causes? The exact cause of colon polyps is not known. What increases the risk? You are more likely to develop this condition if you: Have a family history of colon cancer or colon polyps. Are older than 50 or older than 45 if you are . Have inflammatory bowel disease, such as ulcerative colitis or Crohn's disease. Have certain hereditary conditions, such as: ?Familial adenomatous polyposis. ?Gallego syndrome. ?Turcot syndrome. ?Peutz Jeghers syndrome. Are overweight. Smoke cigarettes. Do not get enough exercise. Drink too much alcohol. Eat a diet that is high in fat and red meat and low in fiber. Had childhood cancer that was treated with abdominal radiation. What are the signs or symptoms? Most polyps do not cause symptoms. If you have symptoms, they may include: Blood coming from your rectum when having a bowel movement. Blood in your stool. The stool may look dark red or black. Abdominal pain. A change in bowel habits, such as constipation or diarrhea. How is this diagnosed? This condition is diagnosed with a colonoscopy. This is a procedure in which a lighted, flexible scope is inserted into the anus and then passed into the colon to examine the area. Polyps are sometimes found when a colonoscopy is done as part of routine cancer screening tests. How is this treated? Treatment for this condition involves removing any polyps that are found. Most polyps can be removed during a colonoscopy. Those polyps will then be tested for cancer. Additional treatment may be needed depending on the results of testing. Follow these instructions at home: Lifestyle Maintain a healthy weight, or lose weight if recommended by your health care provider. Exercise every day or as told by your health care provider. Do not use any products that contain nicotine or tobacco, such as cigarettes and e-cigarettes. If you need help quitting, ask your health care provider. If you drink alcohol, limit how much you have: ?0 1 drink a day for women. ? 0 2 drinks a day for men. Be aware of how much alcohol is in your drink. In the [place] one drink equals one 12 oz bottle of beer (355 mL), one 5 oz glass of wine (148 mL), or one 1 oz shot of hard liquor (44 mL). Eating and drinking Eat foods that are high in fiber, such as fruits, vegetables, and whole grains. Eat foods that are high in calcium and vitamin D, such as milk, cheese, yogurt, eggs, liver, fish, and broccoli. Limit foods that are high in fat, such as fried foods and desserts. Limit the amount of red meat and processed meat you eat, such as hot dogs, sausage, reid, and lunch meats. General instructions Keep all follow-up visits as told by your health care provider. This is important. ?This includes having regularly scheduled colonoscopies. ?Talk to your health care provider about when you need a colonoscopy. Contact a health care provider if: You have new or worsening bleeding during a bowel movement. You have new or increased blood in your stool. You have a change in bowel habits. You lose weight for no known reason. Summary Polyps are tissue growths inside the body. Polyps can grow in many places, including the colon. Most colon polyps are noncancerous (benign), but some can become cancerous over time. This condition is diagnosed with a colonoscopy. Treatment for this condition involves removing any polyps that are found. Most polyps can be removed during a colonoscopy. This information is not intended to replace advice given to you by your health care provider. Make sure you discuss any questions you have with your health care provider. Document Released: 05/18/2005 Document Revised: 12/07/2018 Document Reviewed: 12/07/2018 [employer]ly Patient Education 2020 [employer]. Follow Up Care 12/02/2021 14:09:31 With:Kaitlin Carrasco CNP Address: When:1 year only if needed [facility] Discharge instructions 11-30-2021 Note Date & Type Note Facility 11-30-2021 Hospital Discharg e instructions Patient Education 11/30/2021 14:03:04 Colonoscopy, Care After Surgery [facility] (CUSTOM) Colonoscopy Care After Surgery Please read the instructions outlined below and refer to this sheet in the next few weeks. These discharge instructions provide you with general information on caring for yourself after you leave the hospital. Your doctor may also give you specific instructions. While your treatment has been planned according to the most current medical practices available, unavoidable complications occasionally occur. If you have any problems or questions after discharge, please call your doctor. ACTIVITY You may resume your regular activity, but move at a slower pace for the next 24 hours. Take frequent rest periods for the next 24 hours. Walking will help get rid of the air and reduce the bloated feeling in your abdomen (belly). No driving for 24 hours (because of the anesthesia (medicine) used during the test). You may shower. Do not sign any important legal documents or operate any machinery for 24 hours (because of the anesthesia used during the test). NUTRITION Drink plenty of fluids. You may resume your normal diet as instructed by your doctor. Begin with a light meal and progress to your normal diet. Heavy or fried foods are harder to digest and may make you feel nauseated (sick to your stomach). Avoid alcoholic beverages for 24 hours or as instructed. MEDICATIONS You may resume your normal medications unless your doctor tells you otherwise. WHAT YOU CAN EXPECT TODAY Some feelings of bloating in the abdomen. Passage of more gas than usual. Spotting of blood in your stool or on the toilet paper. FOLLOW-UP Your doctor will discuss the results of your test with you. SEEK IMMEDIATE MEDICAL ATTENTION IF: There is more than a spotting of blood in your stool. There is abdominal distention (your abdomen is swollen). There is vomiting. You have a temperature over 101.5 F. There is abdominal pain or discomfort that is severe or gets worse throughout the day. 11/30/2021 14:03:04 Colon Polyps Colon Polyps Polyps are tissue growths inside the body. Polyps can grow in many places, including the large intestine (colon). A polyp may be a round bump or a mushroom-shaped growth. You could have one polyp or several. Most colon polyps are noncancerous (benign). However, some colon polyps can become cancerous over time. Finding and removing the polyps early can help prevent this. What are the causes? The exact cause of colon polyps is not known. What increases the risk? You are more likely to develop this condition if you: Have a family history of colon cancer or colon polyps. Are older than 50 or older than 45 if you are . Have inflammatory bowel disease, such as ulcerative colitis or Crohn's disease. Have certain hereditary conditions, such as: ?Familial adenomatous polyposis. ?Gallego syndrome. ?Turcot syndrome. ?Peutz Jeghers syndrome. Are overweight. Smoke cigarettes. Do not get enough exercise. Drink too much alcohol. Eat a diet that is high in fat and red meat and low in fiber. Had childhood cancer that was treated with abdominal radiation. What are the signs or symptoms? Most polyps do not cause symptoms. If you have symptoms, they may include: Blood coming from your rectum when having a bowel movement. Blood in your stool. The stool may look dark red or black. Abdominal pain. A change in bowel habits, such as constipation or diarrhea. How is this diagnosed? This condition is diagnosed with a colonoscopy. This is a procedure in which a lighted, flexible scope is inserted into the anus and then passed into the colon to examine the area. Polyps are sometimes found when a colonoscopy is done as part of routine cancer screening tests. How is this treated? Treatment for this condition involves removing any polyps that are found. Most polyps can be removed during a colonoscopy. Those polyps will then be tested for cancer. Additional treatment may be needed depending on the results of testing. Follow these instructions at home: Lifestyle Maintain a healthy weight, or lose weight if recommended by your health care provider. Exercise every day or as told by your health care provider. Do not use any products that contain nicotine or tobacco, such as cigarettes and e-cigarettes. If you need help quitting, ask your health care provider. If you drink alcohol, limit how much you have: ?0 1 drink a day for women. ? 0 2 drinks a day for men. Be aware of how much alcohol is in your drink. In the [place] one drink equals one 12 oz bottle of beer (355 mL), one 5 oz glass of wine (148 mL), or one 1 oz shot of hard liquor (44 mL). Eating and drinking Eat foods that are high in fiber, such as fruits, vegetables, and whole grains. Eat foods that are high in calcium and vitamin D, such as milk, cheese, yogurt, eggs, liver, fish, and broccoli. Limit foods that are high in fat, such as fried foods and desserts. Limit the amount of red meat and processed meat you eat, such as hot dogs, sausage, reid, and lunch meats. General instructions Keep all follow-up visits as told by your health care provider. This is important. ?This includes having regularly scheduled colonoscopies. ?Talk to your health care provider about when you need a colonoscopy. Contact a health care provider if: You have new or worsening bleeding during a bowel movement. You have new or increased blood in your stool. You have a change in bowel habits. You lose weight for no known reason. Summary Polyps are tissue growths inside the body. Polyps can grow in many places, including the colon. Most colon polyps are noncancerous (benign), but some can become cancerous over time. This condition is diagnosed with a colonoscopy. Treatment for this condition involves removing any polyps that are found. Most polyps can be removed during a colonoscopy. This information is not intended to replace advice given to you by your health care provider. Make sure you discuss any questions you have with your health care provider. Document Released: 05/18/2005 Document Revised: 12/07/2018 Document Reviewed: 12/07/2018 [employer] Patient Education [employer] Follow Up Care 10/22/2021 15:41:28 With:Yamileth KIM Address: [address] [place], [place] [address] [address] [place] [address] Business (1) When: Unknown Comments:office will call for folllow up [facility] Evaluation + Plan note Note Date & Type Note Facility Evaluation + Plan note No data available for this section [facility] Evaluation note Note Date & Type Note Facility Evaluation note [facility]: Summary Purpose Family History No Family History Records FoundNo Family History Records FoundNo Family History Records Found Advance Directives No Advanced Directives Records Found Advance Directive Response Recorded Date/ Time Advance Directives No November 27, 024 9:39am Chief Complaint and Reason for Visit Chief Complaint e11.9 Additional Source Comments (unrecognized sect ion and content) No Status Records FoundNo Status Records FoundNo Status Records Found INFORMATION SOURCE (unrecogn ized section and content) DATE CREATED AUTHOR 11/13/2021 [facility] DATE CREATED AUTHOR AUTHOR'S ORGANIZ ATION 10/08/2023 [facility] DATE CREATED AUTHOR AUTHOR'S ORGANIZ ATION 11/29/2023 [facility] Care Teams (unrecognized sec tion and content) Team Status: Active Member Role Status Dates Yolis Bass (Clinic) , DO [facility] Primary Care Prov ider Active Team Status: Inactive Member Role Status Dates Viet Beyer , Attending Provider Activ e Start: November 28, 2023 End: November 28, 2023 Yolis Bass (Clinic) , DO [facility] Primary Care Provider Active Start: November 28, 2023 End: November 28, 2023 Goals (unrecognized section and content) Goals may be documented in a n alternate section FOR RECORDS PERTAINING TO PATIENTS WHO ARE OR HAVE BEEN ENROLLED IN A CHEMICAL DEPENDENCY/SUBSTANCEABUSE PROGRAM, SOME INFORMATION MAY BE OMITTED. This clinical summary was aggregated from multiple sources. Caution should be exercised in using it in the provision of clinical care. This summary normalizes information from multiple sources, and as a consequence, information in this document may materially change the coding, format and clinical context of patient data. In addition, data may be omitted in some cases. CLINICAL DECISIONS SHOULD BE BASED ON THE PRIMARY CLINICAL RECORDS. [facility] [employer] provides no warranty or guarantee of the accuracy or completeness of information in this document.
--- NOTE | 2024-07-17 08:24 | MR_ITS ---
[address] [address] Patient Name: MANDY GARCIA MRN: [id number] date: 1950 Sex: M Assigned Patient Location: MRI Current Patient Location: MRI Accession/Order Number: [id number] Exam Date: 07/17/2024 09:04 Report Date: 07/17/2024 10:59 At the request of: NAMITA BASS Procedure: MR lumbar spine wo con EXAMINATION: MR lumbar spine wo con HISTORY: Spondylosis With Radiculopathy Lumbar Region COMPARISON: No relevant comparison available. TECHNIQUE: A variety of imaging planes and parameters were utilized for visualization of suspected pathology. FINDINGS: For the purposes of numbering, sagittal T2 image # 8 extends from the T11 vertebral body superiorly to the S3 level inferiorly. PARASPINAL AREA: Normal with no visible mass. BONES: Normal alignment with no acute fracture or spondylolisthesis CORD/CAUDA EQUINA: Normal caliber, contour, and signal intensity. DISC LEVELS: 12-L1: No significant disc/facet abnormality, spinal stenosis, or foraminal stenosis. L1-L2: No significant disc/facet abnormality, spinal stenosis, or foraminal stenosis. L2-L3: Mild disc space narrowing and disc desiccation. Mild to moderate diffuse disc/osteophyte complex. Ligament flavum hypertrophy and facet osteoarthropathy. Moderate trefoil narrowing of the central canal. No right, moderate left foraminal stenosis L3-L4: Disc space narrowing and disc desiccation. Moderate diffuse disc/osteophyte complex. Ligamentum flavum hypertrophy and facet osteophytes arthropathy. Mild trefoil narrowing of the central canal. No right, moderate left foraminal stenosis L4-L5: Disc desiccation. Mild diffuse disc bulge. Segmental flavum hypertrophy and facet osteoarthropathy. No central canal or foraminal stenosis L5-S1: No significant disc/facet abnormality, spinal stenosis, or foraminal stenosis. MR/MR lumbar spine wo con IMPRESSION: Degenerative changes resulting in central and foraminal stenosis at L2-L3 and L3-L4 detailed above Electronically authenticated by: NINI SCHAFFER Date: 07/17/2024 10:59
== END 2024-07-17 08:20 | disposition home or self-care (01) ==
LOC: MRI 08:20
PROVIDERS: PCP Family Medicine; Visit Provider Family Medicine
DX: M47.26 Other spondylosis with radiculopathy, lumbar region (principal); M51.369 Other intervertebral disc degeneration, lumbar region without mention of lumbar back pain or lower extremity pain
CPT/HCPCS: 72148

== ENCOUNTER 2025-01-25 08:43 | Emergency (ER) | payer OTHER, SELFPAY ==
--- OUTSIDE RECORDS SUMMARY | 2024-01-31 09:00 | XMS_ITS | Encounter Summary ---
Author Name [facility] [facility] [place] [facility] [address] [place] [id number] Care Team Providers Care Senior Systems Analyst Name Role Phone NAMITA BASS Primary Care Provider Unavailabl e Insurance Providers: All historical and current Section Date Range: From patient's date of to the date document was created. This section includes the names of all active insurance providers for the patient. Insurance Provider Type of Coverage Plan Name Start of Policy Coverage End of Policy Coverage Group Number Member ID Insurance Provider's Telephone Number Policy Wills's Name Patient's Relationship to Policy Wills [employer] POINT OF SERVICE VERIZ ON Sep 05, 2019 [id number] [id number] LOGAN GARCIA PATIENT [employer] ([id number]) PRESCRIPT ION VERIZ ON Sep 05, 2017 [id number] LOGAN GARCIA PATIENT MEDICARE (WNR) MEDICARE (M) PART A Aug 05, 2013 PART A [id number] LOGAN GARCIA JIANG PATIENT MEDICARE (WNR) MEDICARE (M) PART A Aug 05, 2013 PART A [id number] [phone] LOGAN GARCIA JIANG PATIENT MEDICARE (WNR) MEDICARE (M) PART A Aug 05, 2013 PART A [id number] LOGAN GARCIA JIANG PATIENT MEDICARE (WNR) MEDICARE (M) PART A Aug 05, 2013 PART A [id number] LOGAN GARCIA PATIENT MEDICARE PART D (WNR) PRESCRIPT ION PART D Aug 05, 2013 PART D [id number] LOGAN GARCIA PATIENT MEDICARE PART D (WNR) PRESCRIPT ION PART D Aug 05, 2013 PART D [id number] LOGAN GARCIA PATIENT [facility] [place] ON Sep 05, 2016 [id number] LOGAN GARCIA PATIENT Selected Encounter This section includes the [place] on [place] at [place] for the [place]. Date/Time Encounter Type Encounter Description Reason Provider Source January 31, 2024 01:00 PM [facility] 6 OR MORE PODIATRY ICD-10-CM E11.42 Type 2 diabetes mellitus with diabetic polyneuropathy BUBBA FULLER Encounter Template Text not used by [place] Assessments - Encounter Diagnoses This section includes the primary and secondary diagnoses documented for the Encounter. Date/Time Primary/Secondary Diagnosis Diagnosis Name Provider Source January 31, 2024 03:22 PM PRIMARY Type 2 diabetes mellitus with diabetic polyneuropathy BUBBA FULLER January 31, 2024 03:22 PM SECONDARY Tinea unguium BUBBA FULLER Plan of Treatment: Future Appointments (+ 6 months) and Future Tests (+/- 45 days) The Plan of Treatment section includes future care activities for the patient from all [place] treatmentfacilities. This section includes future appointments and future orders which are active, pending or scheduled. Future Appointments This section includes appointments that were scheduled to occur 6 months from the date of the Encounter, up to a maximum of 20 appointments. The data comes from all [place] treatment facilities. Appointment Date/Time Appointment Type Appointme nt Facility Name Feb 20, 2024 03:30 PM AMBULATORY - SURGERY KARENA YBARRA [facility] Apr 09, 2024 10:00 AM AMBULATORY - REHAB MED[facility]IN [facility] Apr 23, 2024 09:30 AM [facility]ORY - NONE [facility] May 02, 2024 10:30 AM AMBULATORY - SURGERY [facility]ARYJANE [facility] Jun 19, 2024 10:30 AM AMB[facility]ORY - NONE [facility] Jun 26, 2024 09:30 AM AMBULATORY - NONE [facility] Jul 17, 2024 09:00 AM AMBULATORY - NONE [facility] Jul 31, 2024 10:30 AM AMBULATORY - SURGERY MARYJANE [facility] Social History: Smoking Status (Most current) and Tobacco Use (All prior to encounter date) This section includes the most current, and the historical, smoking and tobacco- related health factors from the [place] facility where the Encounter took place. Current Smoking Status This section includes the most current smoking, or tobacco-related health factor, from the [place] facility where the Encounter took place. Date/Time Current Smoking Status Comment Facil ity Jun 14, 2023 09:30 AM VA-TOBACCO FORMER USER [facility] Tobacco Use History This section includes a history of the smoking, or tobacco-related health factors, that were collected on or before the date of the Encounter. The data comes from the [place] facility where the Encounter took place. Date/Time Smoking Status/Tobacco Use Comment F acility Jun 14, 2023 09:30 AM VA-TOBACCO QUIT 15 YRS OR MORE [facility] Jun 21, 2022 08:30 AM VA-TOBACCO FORMER USER [facility] Jun 21, 2022 08:30 AM VA-TOBACCO QUIT 15 YRS OR MORE [facility] Jul 07, 2021 01:00 PM VA-TOBACCO FORMER USER [facility] Jul 07, 2021 01:00 PM VA-TOBACCO QUIT 15 YRS OR MORE [facility] Nov 08, 2018 09:12 AM VA-TOBACCO FORMER USER [facility] Nov 08, 2018 09:12 AM VA-TOBACCO QUIT 15 YRS OR MORE [facility] Nov 08, 2017 11:04 AM VA-TOBACCO FORMER USER [facility] Nov 08, 2017 11:04 AM VA-TOBACCO QUIT 15 YRS OR MORE [facility] Mar 21, 2008 10:28 AM QUIT TOBACCO >7 YEARS AGO [facility] May 17, 2007 08:13 AM QUIT TOBACCO >7 YEARS AGO [facility] Advance Directives: All historical and current Section Date Range: From patient's date of to the date document was created. This section includes ALL of a patient's completed or amended VA Advance and Rescinded Directives. The entries below indicate that a directive exists for the patient, but an actual copy is not included with this document. The data comes from all [place] facilities. Date Advance Directives Provider Source May 21, 2020 ADVANCE DIRECTIVE DISCUSSION [facility] Mar 29, 2018 ADVANCE DIRECTIVE DISCUSSION [facility] Encounter Notes: All associated encounter notes This section contains the clinical notes associated to the Encounter. Date/Time Encounter Note(s) Provider Source Feb 06, 2024 12:14 PM ADDENDUM: LOCAL TITLE: Addendum STANDARD TITLE: ADDENDUM DATE OF NOTE: FEB 06, 2024@12:14:28 ENTRY DATE: FEB 06, 2024@12:14:29 AUTHOR: PAM CHENG EXP COSIGNER: URGENCY: STATUS: COMPLETED I received a request for additional terbinafine for his fungal toenails. Please let vet know he has completed full course of treatment for his fungal toenails. We will continue to monitor for improvement as it is often delayed from completion of medication. /vira/ PAM CHENG AIRPLANE CLEANER Signed: 02/06/2024 12:15 Receipt Acknowledged By: 02/06/2024 15:46 /es/ BUBBA FULLER LICENSED PRACTICAL NURSE --- Original Document --- 01/31/24 [facility]RY [facility] NURSING NOTE (T): SUBJECTIVE: 73 year old vet ambulated into the clinic with a cane and with vet. CHIEF COMPLAINT: Vet here for foot and toenail care. Vet is a diabetic, last A1c 7.2 on 12/19/23. Vet denies any pain in his feet or ankles today Review Allergies Allergies reviewed and updated per protocol. ALLERGIES/ADVERSE REACTIONS Type: DRUG Date/Time Reactant Severity Reaction 05/17/2007 08:09 PENICILLIN URTICARIA MEDICATION LIST REVIEW REPORT Patient states no change in documented OTC/Herbals at this visit. OBJECTIVE: VASCULAR: - DP/PT palpable b/l - CFT <3 secs b/l - Skin temp from heels to toes warm to warm b/l DERMATOLOGIC: - Nails 1-5 b/l thickened, elongated, yellow. Left hallux nail distrophic. - Web spaces clean and dry b/l - Skin intact, no open lesions or cracking noted. No edema, varicosities or hair NEUROLOGIC: - Protective sensation deminished 5/10 left foot, 4/10 right foot checked with SWMF. Lite sensation b/l heels only. MUSCULOSKELETAL: - Muscle strength 5/5 in all four quadrants - ROM within normal range. - Mild reducible hammertoe deformities 2-4 b/l PAVE FOOT EXAM A foot risk level was completed. The following risk level was identified for this patient: +POD RISK SCORE+ --LEVEL 2 - (MODERATE RISK) Sensory loss and may have one additional finding below Diminished circulation Foot deformity -POD RISK SCORE- Patient currently being followed by Podiatry or other foot care provider. LEVEL 2 FOOT EDUCATION: 1. Advised patient that therapeutic footwear and orthosis are required to accommodate foot deformities, to compensate for soft tissue atrophy, and to evenly distribute plantar foot pressures. 2. Advised patient not to walk barefoot. Instructed the patient to pay close attention to the style and fit of shoes. 3. Explained the importance of daily foot checks. Explained that loss of sensation leads to callouses. Callouses break down, which result in ulcers that may lead to gangrene and amputation. 4. Stressed the importance of daily foot hygiene. Warm (not hot) bathing of the feet, complete drying and thorough inspection for changes in the condition of the skin constitute daily foot care. Demonstrated how to do a thorough foot check. 5. Emphasized the use of clean, non-restrictive socks/stockings and well fitting shoes. 6. Stressed the importance of immediate follow-up of any foot injuries or ulcers. Explained that he/she should be non-weight bearing whenever there are lesions on the foot, to prevent cellular damage. Level of Understanding: Good Patient/Caregiver having difficulty examining feet No Patient/caregiver has difficulty cleansing feet No Patient walks barefoot Rarely Instructed on the importance of not walking barefoot OBSERVATIONS: After reviewing the H&P and clinical findings, the made the diagnosis of: Diabetes Mellitus with neuropathy, onychomycosis, venous insufficiency PLAN: Dr. Cheng examined the patient, was consulted, and directed care of this patient. Treatment today consisted of: - 10 Nails debrided and dremeled without incident. - Reviewed diabetic foot education with vet - RTC in 3 months with podiatry nursing clinic /vira/ BUBBA FULLER LICENSED PRACTICAL NURSE Signed: 01/31/2024 15:22 Receipt Acknowledged By: 01/31/2024 15:29 /vira/ PAM CHENG AIRPLANE CLEANER 01/31/2024 ADDENDUM STATUS: COMPLETED Agree with the above assessment and treatment plan. Treatment plan/Debridement to reduce painful ambulation and risk of infection. /hernandez CHENG AIRPLANE CLEANER Signed: 01/31/2024 15:30 02/06/2024 ADDENDUM STATUS: COMPLETED Attempted to call vet, left message on voicemail law writer will call back later today concerning conservation technician addendum dated 02/06/24. /vira/ BUBBA FULLER LICENSED PRACTICAL NURSE Signed: 02/06/2024 12:53 02/06/2024 ADDENDUM STATUS: COMPLETED Called vet, notified him of conservation technician addendum dated 02/06/24. Vet verbalized understanding of information provided by law writer. /vira/ BUBBA FULLER LICENSED PRACTICAL NURSE Signed: 02/06/2024 15:46 PAM CHENG CB January 31, 2024 07:24 AM PODIATRY NURSING O UTPATIENT NOTE: LOCAL TITLE: P[facility]ATRY [facility] NURSING NOTE (T) STANDARD TITLE: PODIATRY NURSING OUTPATIENT NOTE DATE OF NOTE: JANUARY 31, 2024@07:24 ENTRY DATE: JANUARY 31, 2024@07:24:27 AUTHOR: BUBBA FULLER COSIGNER: URGENCY: STATUS: COMPLETED PODIATRY [facility] NURSING NOTE (T) Has ADDENDA SUBJECTIVE: 73 year old vet ambulated into the clinic with a cane and with vet. CHIEF COMPLAINT: Vet here for foot and toenail care. Edith is a diabetic, last A1c 7.2 on 12/19/23. Edith denies any pain in his feet or ankles today Review Allergies Allergies reviewed and updated per protocol. ALLERGIES/ADVERSE REACTIONS Type: DRUG Date/Time Reactant Severity Reaction 05/17/2007 08:09 PENICILLIN URTICARIA MEDICATION LIST REVIEW REPORT Patient states no change in documented OTC/Herbals at this visit. OBJECTIVE: VASCULAR: - DP/PT palpable b/l - CFT <3 secs b/l - Skin temp from heels to toes warm to warm b/l DERMATOLOGIC: - Nails 1-5 b/l thickened, elongated, yellow. Left hallux nail distrophic. - Web spaces clean and dry b/l - Skin intact, no open lesions or cracking noted. No edema, varicosities or hair NEUROLOGIC: - Protective sensation deminished 5/10 left foot, 4/10 right foot checked with SWMF. Lite sensation b/l heels only. MUSCULOSKELETAL: - Muscle strength 5/5 in all four quadrants - ROM within normal range. - Mild reducible hammertoe deformities 2-4 b/l PAVE FOOT EXAM A foot risk level was completed. The following risk level was identified for this patient: +POD RISK SCORE+ --LEVEL 2 - (MODERATE RISK) Sensory loss and may have one additional finding below Diminished circulation Foot deformity -POD RISK SCORE- Patient currently being followed by Podiatry or other foot care provider. LEVEL 2 FOOT EDUCATION: 1. Advised patient that therapeutic footwear and orthosis are required to accommodate foot deformities, to compensate for soft tissue atrophy, and to evenly distribute plantar foot pressures. 2. Advised patient not to walk barefoot. Instructed the patient to pay close attention to the style and fit of shoes. 3. Explained the importance of daily foot checks. Explained that loss of sensation leads to callouses. Callouses break down, which result in ulcers that may lead to gangrene and amputation. 4. Stressed the importance of daily foot hygiene. Warm (not hot) bathing of the feet, complete drying and thorough inspection for changes in the condition of the skin constitute daily foot care. Demonstrated how to do a thorough foot check. 5. Emphasized the use of clean, non-restrictive socks/stockings and well fitting shoes. 6. Stressed the importance of immediate follow-up of any foot injuries or ulcers. Explained that he/she should be non-weight bearing whenever there are lesions on the foot, to prevent cellular damage. Level of Understanding: Good Patient/Caregiver having difficulty examining feet No Patient/caregiver has difficulty cleansing feet No Patient walks barefoot Rarely Instructed on the importance of not walking barefoot OBSERVATIONS: After reviewing the H&P and clinical findings, the made the diagnosis of: Diabetes Mellitus with neuropathy, onychomycosis, venous insufficiency PLAN: Dr. Cheng examined the patient, was consulted, and directed care of this patient. Treatment today consisted of: - 10 Nails debrided and dremeled without incident. - Reviewed diabetic foot education with vet - RTC in 3 months with podiatry nursing clinic /vira/ BUBBA FULLER LICENSED PRACTICAL NURSE Signed: 01/31/2024 15:22 Receipt Acknowledged By: 01/31/2024 15:29 /vira/ PAM CHENG AIRPLANE CLEANER 01/31/2024 ADDENDUM STATUS: COMPLETED Agree with the above assessment and treatment plan. Treatment plan/Debridement to reduce painful ambulation and risk of infection. /hernandez CHENG AIRPLANE CLEANER Signed: 01/31/2024 15:30 02/06/2024 ADDENDUM STATUS: COMPLETED I received a request for additional terbinafine for his fungal toenails. Please let vet know he has completed full course of treatment for his fungal toenails. We will continue to monitor for improvement as it is often delayed from completion of medication. /vira/ PAM CHENG AIRPLANE CLEANER Signed: 02/06/2024 12:15 Receipt Acknowledged By: 02/06/2024 15:46 /vira/ BUBBA FULLER LICENSED PRACTICAL NURSE 02/06/2024 ADDENDUM STATUS: COMPLETED Attempted to call vet, left message on voicemail law writer will call back later today concerning conservation technician addendum dated 02/06/24. /vira/ BUBBA FULLER LICENSED PRACTICAL NURSE Signed: 02/06/2024 12:53 02/06/2024 ADDENDUM STATUS: COMPLETED Called vet, notified him of conservation technician addendum dated 02/06/24. Vet verbalized understanding of information provided by law writer. /vira/ BUBBA FULLER LICENSED PRACTICAL NURSE Signed: 02/06/2024 15:46 BUBBA FULLER [facility]
--- OUTSIDE RECORDS SUMMARY | 2024-02-20 11:30 | XMS_ITS | Encounter Summary ---
Author Name [facility] [place] [facility] [place] Address [address] [place] [address] Care Team Providers Care Clerk Supervisor Name Role Phone NAMITA BASS Primary Care [...] OF SERVICE VERIZ ON Sep 05, 2019 [id number] [phone] LOGAN GARCIA PATIENT [facility] SCRIPTS ([id number]) PRESCRIPT ION VERIZ ON Sep 05, 2017 [id number] LOGAN GARCIA PATIENT MEDICARE (WNR) MEDICARE (M) PART A Aug 05, 2013 PART A [id number] LOGAN GARCIA JIANG PATIENT MEDICARE (WNR) MEDICARE (M) PART A Aug 05, 2013 PART A [id number] [phone] LOGAN GARCIA JIANG PATIENT MEDICARE (WNR) MEDICARE (M) PART A Aug 05, 2013 PART A [id number] LOGAN GARCIA JIANG PATIENT MEDICARE (WNR) MEDICARE (M) PART A Aug 05, 2013 PART A [id number] LOGAN GARCIA PATIENT MEDICARE PART D (WNR) PRESCRIPT ION PART D Aug 05, 2013 PART D [id number] LOGAN GARCIA PATIENT MEDICARE PART D (WNR) PRESCRIPT ION PART D Aug 05, 2013 PART D [id number] LOGAN GARCIA PATIENT [facility] STEPHANIE ON Sep 05, 2016 [id number] [phone] LOGAN GARCIA PATIENT Selected Encounter This section includes the information on record at [place] for the Encounter. 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 Date/Time Primary/Secondary Diagnosis Diagnosis Name Provider Source Mar 15, 2024 06:56 PM PRIMARY Third [oculomotor] nerve palsy, left eye [facility] JANE [facility] Mar 15, 2024 06:56 PM SECONDARY Diplopia [facility] JANE [facility] Plan of Treatment: Future Appointments (+ 6 months) and Future Tests (+/- 45 days) The Plan of Treatment section includes future care activities for the patient from all [place] treatmentfacilities. This section includes future appointments and future orders which are active, pending or scheduled. Future Appointments This section includes appointments that were scheduled to occur 6 months from the date of the Encounter, up to a maximum of 20 appointments. The data comes from all [place] treatment facilities. Appointment Date/Time Appointment Type Appointme nt Facility Name Apr 09, 2024 10:00 AM AMBULATORY - [facility] Apr 23, 2024 09:30 AM AMBULATORY - NONE [facility] May 02, 2024 10:30 AM AMBULATORY - SURGERY [facility] Jun 19, 2024 10:30 AM AMBULATORY - NONE [facility] Jun 26, 2024 09:30 AM AMBULATORY - NONE [facility] Jul 17, 2024 09:00 AM AMBULATORY - NONE [facility] Jul 31, 2024 10:30 AM AMBULATORY - SURGERY [facility] Social History: Smoking Status (Most current) and Tobacco Use (All prior to encounter date) This section includes the most current, and the historical, smoking and tobacco- related health factors from the [place] facility where the Encounter took place. Current Smoking Status This section includes the most current smoking, or tobacco-related health factor, from the [place] facility where the Encounter took place. Date/Time Current Smoking Status Comment Facil ity Jun 14, 2023 09:30 AM VA-TOBACCO QUIT 15 YRS OR MORE [facility] Tobacco Use History This section includes a history of the smoking, or tobacco-related health factors, that were collected on or before the date of the Encounter. The data comes from the [place] facility where the Encounter took place. Date/Time Smoking Status/Tobacco Use Comment F acility Jun 14, 2023 09:30 AM VA-TOBACCO QUIT 15 YRS OR MORE [facility] Jun 21, 2022 08:30 AM VA-TOBACCO FORMER USER [facility] Jun 21, 2022 08:30 AM VA-TOBACCO QUIT 15 YRS OR MORE [facility] Jul 07, 2021 01:00 PM VA-TOBACCO FORMER USER [facility] Jul 07, 2021 01:00 PM VA-TOBACCO QUIT 15 YRS OR MORE [facility] Nov 08, 2018 09:12 AM VA-TOBACCO FORMER USER [facility] Nov 08, 2018 09:12 AM VA-TOBACCO QUIT 15 YRS OR MORE [facility] Nov 08, 2017 11:04 AM VA-TOBACCO FORMER USER [facility] Nov 08, 2017 11:04 AM VA-TOBACCO QUIT 15 YRS OR MORE [facility] Mar 21, 2008 10:28 AM QUIT TOBACCO >7 YEARS AGO [facility] May 17, 2007 08:13 AM QUIT TOBACCO >7 YEARS AGO [facility] Advance Directives: All historical and current Section Date Range: From patient's date of to the date document was created. This section includes ALL of a patient's completed or amended [place] Advance and Rescinded Directives. The entries below indicate that a directive exists for the patient, but an actual copy is not included with this document. The data comes from all [place] facilities. Date Advance Directives Provider Source May 21, 2020 ADVANCE DIRECTIVE DISCUSSION DEEP [facility] Mar 29, 2018 ADVANCE DIRECTIVE DISCUSSION DEEP [facility] Encounter Notes: All associated encounter notes This section contains the clinical notes associated to the Encounter. Date/Time Encounter Note(s) Provider Source Feb 20, 2024 03:35 PM OPTOMETRY OUTPATIE NT NOTE: LOCAL TITLE: OPTOMETRY OUTPATIENT CLINIC NOTE (T) STANDARD TITLE: OPTOMETRY OUTPATIENT NOTE DATE OF NOTE: FEB 20, 2024@15:35 ENTRY DATE: FEB 20, 2024@15:35:25 AUTHOR: LONDON JANE EXP COSIGNER: URGENCY: STATUS: COMPLETED 73 yowm here today for visual disturbance Last Eye exam: Oct 03, 2023 VINES/OPT Dr Jane Chief Complaint: patient reports over past 2 weeks has been experiencing double vision - peripherally OS Ocular History: (+) DM s DR OU (+) Cat OU (+) h/o Diplopia from microvascular infarct - resolved Ocular Medications: None Family Ocular History: ARMD/mother (+) Medical History: Bilateral carpal tunnel syndrome 07/07/2021 Lumbar spondylosis 04/07/2021 SMALL, Diabetic peripheral neuropathy associated with 05/02/2017 Venous insufficiency of leg 03/15/2016 Diplopia 07/24/2015 Screening for Malignant Neoplasms of colon 03/10/ GERD 09/08/2010 HYPERLIPIDEMIA NEC/NOS 03/30/2010 Sleep Apnea 10/23/2008 Hyperlipidemia 07/24/2015 Dermatophytosis of nail 07/24/2015 Obesity (04/21/2018 Diabetes mellitus (06/18/2015 Essential zioptahghvyp33/19/2015 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 Active Medications: ACCU-CHEK GUIDE (GLUCOSE) TEST STRIP USE 1 STRIP ACTIVE ATORVASTATIN CALCIUM 80MG TAB TAKE ONE TABLET BY ACTIVE CHLORTHALIDONE 25MG TAB TAKE ONE TABLET BY MOUTH ACTIVE [id number]/[id number] 24HR TAB TAKE 2 ACTIVE HYDROPHILIC (EQV EUCERIN) TOP CREAM APPLY A ACTIVE ICOSAPENT ETHYL 1GM CAP TAKE TWO CAPSULES BY MOUTH ACTIVE INSULIN SYRINGE 1ML 31G 8MM USE SYRINGE SUPPLY ITEM ACTIVE INSULIN,GLARGINE-YFGN 100UNIT/ML INJ INJECT 60 UNITS ACTIVE LANCET,SOFTCLIX USE LANCET(S) TESTING DIRECTED FOR ACTIVE METOPROLOL SUCCINATE 100MG SA TAB TAKE ONE TABLET BY ACTIVE OMEPRAZOLE 20MG EC CAP TAKE ONE CAPSULE BY MOUTH ACTIVE PREGABALIN 150MG ORAL CAP TAKE ONE CAPSULE BY MOUTH ACTIVE PSYLLIUM SUGAR FREE STIR 1 ROUNDED ACTIVE SEMAGLUTIDE 2MG/0.75ML INJ PEN 3ML INJECT 2MG ACTIVE TAMSULOSIN HCL 0.4MG CAP TAKE ONE CAPSULE BY MOUTH AT ACTIVE TERBINAFINE HCL 250MG TAB TAKE ONE TABLET BY MOUTH ACTIVE Non-VA ASCORBIC ACID 500MG TAB 1000MG MOUTH EVERY DAY ACTIVE Non-VA ASPIRIN 325MG EC TAB 325MG MOUTH EVERY DAY ACTIVE Non-VA CHOLECALCIF 25MCG (D3-1,000UNIT) TAB 2000UNIT ACTIVE Non-VA CYANOCOBALAMIN 1000MCG TAB 1000MCG MOUTH EVERY ACTIVE Non-VA GARLIC CAP/TAB 1 CAP/TAB MOUTH EVERY DAY ACTIVE Non-VA INSULIN,ASPART(EQV-NOVLG)100UN/ML FLXPEN 5 ACTIVE Non-VA VITAMIN E 180MG (400UNIT) CAP 400UNT MOUTH ACTIVE Allergies: penicillin VA: cRx OD: 20/25 OS: 20/25 EOMs: L hyper, increasing in L gaze and with R head tilt PUPILS: ERRL, -APD OU CF: FTFC OU Assessment/Plan: 1. New onset of vertical and horizontal diplopia caused by left CN III palsy to LIR. Likely caused by DM, HTN and HLP. Monitor in 6 months year c CHERYLE. RTC STAT c any increase in s/s. 2. h/o Sudden onset of vertical diplopia from microvascular incident to left III CN causing JASMINA palsy, caused by DM, HTN and HLP - resolved. Monitor in 1 year c CHERYLE. RTC STAT c any increase in s/s. RTC: Maintain Sep 2024 CHERYLE /vira/ L[place]ON JANE INTERFACE DESIGNER Signed: 02/20/2024 16:22 [facility] Feb 20, 2024 03:25 PM OPTOMETRY NOTE: LOCAL TITLE: OPTOMETRY PHOTOENGRAVING ETCHER NOTE STANDARD TITLE: OPTOMETRY NOTE DATE OF NOTE: FEB 20, 2024@15:25 ENTRY DATE: FEB 20, 2024@15:25:45 AUTHOR: CIRO MARTINEZ EXP COSIGNER: L[place]ON JANE URGENCY: STATUS: COMPLETED 73 Year old vet here today visual disturbance Last Eye exam: Oct 03 2023 VINES/OPT Dr Jane Chief Complaint: patient reports over past 2 week has been experiencing double vision- peripheral OS Ocular History: (+) DM s OU (+) Cat OU (+) h/o Diplopia from microvascular infarct - resolved Ocular Medications: None Family Ocular History: ARMD/mother (+) Medical History: Bilateral carpal tunnel syndrome 07/07/2021 Lumbar spondylosis 04/07/2021 SMALL, Diabetic peripheral neuropathy associated with 05/02/2017 Venous insufficiency of leg 03/15/2016 Diplopia 07/24/2015 Screening for Malignant Neoplasms of colon 03/10/ GERD 09/08/2010 HYPERLIPIDEMIA NEC/NOS 03/30/2010 Sleep Apnea 10/23/2008 Hyperlipidemia 07/24/2015 Dermatophytosis of nail 07/24/2015 Obesity (04/21/2018 Diabetes mellitus (06/18/2015 Essential mnicusgqvehw61/19/2015 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 Active Medications: ACCU-CHEK GUIDE (GLUCOSE) TEST STRIP USE 1 STRIP ACTIVE ATORVASTATIN CALCIUM 80MG TAB TAKE ONE TABLET BY ACTIVE CHLORTHALIDONE 25MG TAB TAKE ONE TABLET BY MOUTH ACTIVE [id number] 24HR TAB TAKE 2 ACTIVE HYDROPHILIC (EQV EUCERIN) TOP CREAM APPLY A ACTIVE ICOSAPENT ETHYL 1GM CAP TAKE TWO CAPSULES BY MOUTH ACTIVE INSULIN SYRINGE 1ML 31G 8MM USE SYRINGE SUPPLY ITEM ACTIVE INSULIN,GLARGINE-YFGN 100UNIT/ML INJ INJECT 60 UNITS ACTIVE LANCET,SOFTCLIX USE LANCET(S) TESTING DIRECTED FOR ACTIVE METOPROLOL SUCCINATE 100MG SA TAB TAKE ONE TABLET BY ACTIVE OMEPRAZOLE 20MG EC CAP TAKE ONE CAPSULE BY MOUTH ACTIVE PREGABALIN 150MG ORAL CAP TAKE ONE CAPSULE BY MOUTH ACTIVE PSYLLIUM SUGAR FREE STIR 1 ROUNDED ACTIVE SEMAGLUTIDE 2MG/0.75ML INJ PEN 3ML INJECT 2MG ACTIVE TAMSULOSIN HCL 0.4MG CAP TAKE ONE CAPSULE BY MOUTH AT ACTIVE TERBINAFINE HCL 250MG TAB TAKE ONE TABLET BY MOUTH ACTIVE Non-VA ASCORBIC ACID 500MG TAB 1000MG MOUTH EVERY DAY ACTIVE Non-VA ASPIRIN 325MG EC TAB 325MG MOUTH EVERY DAY ACTIVE Non-VA CHOLECALCIF 25MCG (D3-1,000UNIT) TAB 2000UNIT ACTIVE Non-VA CYANOCOBALAMIN 1000MCG TAB 1000MCG MOUTH EVERY ACTIVE Non-VA GARLIC CAP/TAB 1 CAP/TAB MOUTH EVERY DAY ACTIVE Non-VA INSULIN,ASPART(EQV-NOVLG)100UN/ML FLXPEN 5 ACTIVE Non-VA VITAMIN E 180MG (400UNIT) CAP 400UNT MOUTH ACTIVE Allergies: penicillin VA: sRx OD: OS: /vira/ CIRO MARTINEZ OPTOMETRY PHOTOENGRAVING ETCHER Signed: 02/20/2024 15:26 /vira/ L[place] JANE INTERFACE DESIGNER Cosigned: 02/20/2024 15:35 CIRO MARTINEZ OC
--- OUTSIDE RECORDS SUMMARY | 2024-04-09 06:00 | XMS_ITS | Encounter Summary ---
Author Name [facility] [place] Address [address] [place] [address] Care Team Providers Care Terrazzo Worker Helper Name Role Phone NAMITA BASS Primary Care [...] OF SERVICE VERIZ ON Sep 05, 2019 [id number] [phone] LOGAN GARCIA PATIENT [facility] S[facility]IP[facility] ([id number]) PRESCRIPT ION VERIZ ON Sep 05, 2017 [id number] [phone] LOGAN GARCIA PATIENT MEDICARE (WNR) MEDICARE (M) PART A Aug 05, 2013 PART A [id number] [phone] LOGAN GARCIA JIANG PATIENT MEDICARE (WNR) MEDICARE (M) PART A Aug 05, 2013 PART A [id number] LOGAN GARCIA JIANG PATIENT MEDICARE (WNR) MEDICARE (M) PART A Aug 05, 2013 PART A [id number] LOGAN GARCIA JIANG PATIENT MEDICARE (WNR) MEDICARE (M) PART A Aug 05, 2013 PART A [id number] LOGAN GARCIA PATIENT MEDICARE PART D (WNR) PRESCRIPT ION PART D Aug 05, 2013 PART D [id number] LOGAN GARCIA PATIENT MEDICARE PART D (WNR) PRESCRIPT ION PART D Aug 05, 2013 PART D [id number] LOGAN GARCIA PATIENT [facility] RETIREE STEPHANIE ON Sep 05, 2016 [id number] LOGAN GARCIA PATIENT Selected Encounter This section includes the information on record at [place] for the Encounter. Date/Time Encounter Type Encounter Description Reason Provider Source Apr 09, 2024 10:00 AM [facility] TEST DONE W/N TEST COMP EMG - ELECTROMYOGRAM ICD-10-CM R20.2 Paresthesia of skin LONDON FLORES Delfino Encounter Template Text not used by [place] Assessments - Encounter Diagnoses This section includes the primary and secondary diagnoses documented for the Encounter. Date/Time Primary/Secondary Diagnosis Diagnosis Name Provider Source Apr 23, 2024 01:36 PM PRIMARY Paresthesia of skin LODNON FLORES [facility] Apr 23, 2024 01:36 PM SECONDARY Carpal tunnel syndrome, bilateral upper limbs LONDON FLORES [facility] Plan of Treatment: Future Appointments (+ 6 months) and Future Tests (+/- 45 days) The Plan of Treatment section includes future care activities for the patient from all [place] treatmentfacilities. This section includes future appointments and future orders which are active, pending or scheduled. Future Appointments This section includes appointments that were scheduled to occur 6 months from the date of the Encounter, up to a maximum of 20 appointments. The data comes from all [place] treatment facilities. Appointment Date/Time Appointment Type Appointme nt Facility Name Apr 23, 2024 09:30 AM AMBULATORY - NONE [facility] May 02, 2024 10:30 AM AMBULATORY - SURGERY [facility] Jun 19, 2024 10:30 AM AMBULATORY - NONE [facility] Jun 26, 2024 09:30 AM AMBULATORY - NONE [facility] Jul 17, 2024 09:00 AM AMBULATORY - NONE [facility] Jul 31, 2024 10:30 AM AMBULATORY - SURGERY [facility] Sep 12, 2024 10:30 AM AMBULATORY - REHAB MEDICIN [facility] Sep 13, 2024 10:00 AM AMBULATORY - NONE [facility] Oct 01, 2024 09:00 AM AMBULATORY - SURGERY [facility] Oct 10, 2024 10:00 AM AMBULATORY - REHAB [facility] Social History: Smoking Status (Most current) and Tobacco Use (All prior to encounter date) This section includes the most current, and the historical, smoking and tobacco- related health factors from the [place] facility where the Encounter took place. Current Smoking Status This section includes the most current smoking, or tobacco-related health factor, from the [place] facility where the Encounter took place. Date/Time Current Smoking Status Comment Facil ity Mar 30, 2010 10:46 AM QUIT TOBACCO >7 YEARS AGO [facility] Advance Directives: All historical and current Section Date Range: From patient's date of to the date document was created. This section includes ALL of a patient's completed or amended [place] Advance and Rescinded Directives. The entries below indicate that a directive exists for the patient, but an actual copy is not included with this document. The data comes from all [place] facilities. Date Advance Directives Provider Source May 21, 2020 ADVANCE DIRECTIVE DISCUSSION DEEP [facility] Mar 29, 2018 ADVANCE DIRECTIVE DISCUSSION DEEP [facility] Encounter Notes: All associated encounter notes This section contains the clinical notes associated to the Encounter. Date/Time Encounter Note(s) Provider Source Apr 09, 2024 11:37 AM PHYSICAL MEDICINE REHAB PROCEDURE NOTE: LOCAL TITLE: CP EMG STANDARD TITLE: PHYSICAL MEDICINE REHAB PROCEDURE NOTE DATE OF NOTE: APR 09, 2024@11:37 ENTRY DATE: APR 09, 2024@11:37:16 AUTHOR: LONDON FLORES EXP COSIGNER: URGENCY: STATUS: COMPLETED PROCEDURE SUMMARY CODE: Abnormal DATE/TIME PERFORMED: APR 09, 2024@11:36 Please see [facility] for EMG report. /vira/ LONDON FLORES PHYSICIAN Signed: 04/09/2024 11:58 LONDON FLORES [facility]
--- OUTSIDE RECORDS SUMMARY | 2024-05-02 06:30 | XMS_ITS | Encounter Summary ---
Author Name [facility] [place] Address [address] [place] [address] Care Team Providers Care Behavioral Sciences Instructor Name Role Phone NAMITA BASS Primary Care [...] OF SERVICE VERIZ ON Sep 05, 2019 [id number] [phone] LOGAN GARCIA PATIENT EXPRESS SCRIPTS ([id number]) PRESCRIPT ION VERIZ ON Sep 05, 2017 [id number] LOGAN GARCIA PATIENT MEDICARE (WNR) MEDICARE (M) PART A Aug 05, 2013 PART A [id number] LOGAN GARCIA JIANG PATIENT MEDICARE (WNR) MEDICARE (M) PART A Aug 05, 2013 PART A [id number] LOGAN GARCIA JIANG PATIENT MEDICARE (WNR) MEDICARE (M) PART A Aug 05, 2013 PART A [id number] LOGAN GARCIA JIANG PATIENT MEDICARE (WNR) MEDICARE (M) PART A Aug 05, 2013 PART A [id number] LOGAN GARCIA PATIENT MEDICARE PART D (WNR) PRESCRIPT ION PART D Aug 05, 2013 PART D [id number] LOGAN GARCIA PATIENT MEDICARE PART D (WNR) PRESCRIPT ION PART D Aug 05, 2013 PART D [id number] [id number] LOGAN GARCIA PATIENT [facility] ON Sep 05, 2016 [id number] LOGAN GARCIA PATIENT Selected Encounter This section includes the information on record at [place] for the Encounter. Date/Time Encounter Type Encounter Description Reason Provider Source May 02, 2024 10:30 AM DEBRIDE NAIL 6 OR MORE PODIATRY ICD-10-CM E11.42 Type 2 diabetes mellitus with diabetic polyneuropathy BUBBA FULLER Encounter Template Text not used by [place] Assessments - Encounter Diagnoses This section includes the primary and secondary diagnoses documented for the Encounter. Date/Time Primary/Secondary Diagnosis Diagnosis Name Provider Source May 02, 2024 10:48 AM PRIMARY Type 2 diabetes mellitus with diabetic polyneuropathy BUBBA FULLER May 02, 2024 10:48 AM SECONDARY Tinea unguium [facility] FULLER [facility] May 02, 2024 10:48 AM SECONDARY Venous insufficiency (chronic) (peripheral) BUBBA FULLER Plan of Treatment: Future Appointments (+ 6 months) and Future Tests (+/- 45 days) The Plan of Treatment section includes future care activities for the patient from all [place] treatmentfacilities. This section includes future appointments and future orders which are active, pending or scheduled. Future Appointments This section includes appointments that were scheduled to occur 6 months from the date of the Encounter, up to a maximum of 20 appointments. The data comes from all [place] treatment facilities. Appointment Date/Time Appointment Type Appointme nt Facility Name Jun 19, 2024 10:30 AM AMBULATORY - NONE [facility] Jun 26, 2024 09:30 AM AMBULATORY - NONE [facility] Jul 17, 2024 09:00 AM AMBULATORY - NONE [facility] Jul 31, 2024 10:30 AM AMBULATORY - SURGERY [facility] Sep 12, 2024 10:30 AM AMBULATORY - RE[facility]AB [facility]IC[facility] Sep 13, 2024 10:00 AM AMBULATORY - NONE [facility] Oct 01, 2024 09:00 AM AMBULATORY - SURGERY [facility] Oct 10, 2024 10:00 AM AMBULATORY - REHAB MEDICIN E [facility] Oct 30, 2024 11:00 AM AMBULATORY - NONE [facility] Social History: Smoking Status (Most current) and Tobacco Use (All prior to encounter date) This section includes the most current, and the historical, smoking and tobacco- related health factors from the [place] facility where the Encounter took place. Current Smoking Status This section includes the most current smoking, or tobacco-related health factor, from the [place] facility where the Encounter took place. Date/Time Current Smoking Status Comment Facil ity Jun 14, 2023 09:30 AM VA-TOBACCO QUIT 15 YRS OR MORE [facility] Tobacco Use History This section includes a history of the smoking, or tobacco-related health factors, that were collected on or before the date of the Encounter. The data comes from the [place] facility where the Encounter took place. Date/Time [...] this document. The data comes from all [place] facilities. Date Advance Directives Provider Source May 21, 2020 ADVANCE DIRECTIVE DISCUSSION DEEP S[facility]AST[facility]ME [facility] Mar 29, 2018 ADVANCE DIRECTIVE DISCUSSION DEEP SAGASTUME CBZORA Encounter Notes: All associated encounter notes This section contains the clinical notes associated to the Encounter. Date/Time Encounter Note(s) Provider Source May 02, 2024 07:16 AM PODIATRY NURSING O UTPATIENT NOTE: LOCAL TITLE: PODIATRY [facility] NURSING NOTE (T) STANDARD TITLE: PODIATRY NURSING OUTPATIENT NOTE DATE OF NOTE: MAY 02, 2024@07:16 ENTRY DATE: MAY 02, 2024@07:16:39 AUTHOR: BUBBA FULLER COSIGNER: URGENCY: STATUS: COMPLETED PODIATRY [facility] NURSING NOTE (T) Has ADDENDA SUBJECTIVE: 73 year old vet ambulate into the clinic with cane. CHIEF COMPLAINT: Vet here for foot and toenail care vet is a diabetic, last A1c 7.2 on 12/19/23. Vet denies any pain in his feet or ankles today, but does admit to neuropathy symptoms in his legs and now in his arms. Blood sugar this am 132. Review Allergies Allergies reviewed and updated per protocol. ALLERGIES/ADVERSE REACTIONS Type: DRUG Date/Time Reactant Severity Reaction 05/17/2007 08:09 PENICILLIN URTICARIA MEDICATION LIST REVIEW REPORT Patient states no change in documented OTC/Herbals at this visit. OBJECTIVE: VASCULAR: - DP/PT palpable b/l - CFT < 3 secs b/l - Skin temp from heels to toes warm to warm b/l DERMATOLOGIC: - Nails 2-5 b/l slightly elongated, thickened and yellow. Right hallux thickened, elongated and yellow. Left hallux thickened and yellow and dystrophic. - Web spaces clean and dry b/l - Skin intact, supple, no open lesions or cracking noted. No edema varicosities or hair noted. NEUROLOGIC: - Protective sensation deminished 5/10 left foot 1/10 right foot checked with [facility]. Lite sensation only felt on the toes b/l by vet. MUSCULOSKELETAL: - Muscle strength 5/5 in all four quadrants. - ROM within normal range. - Mild reducible hammertoe deformities 2-4 b/l PAVE FOOT EXAM PAVE FOOT EXAM A foot risk level [...] incident. - Reviewed diabetic foot education with . - RTC in 3 months with podiatry nursing clinic /vira/ BUBBA FULLER LICENSED PRACTICAL NURSE Signed: 05/02/2024 10:48 Receipt Acknowledged By: 05/02/2024 10:59 /vira/ PAM CHENG HEALTH ASSISTANT 05/02/2024 ADDENDUM STATUS: COMPLETED Agree with the above assessment and treatment plan. Treatment plan/Debridement to reduce painful ambulation and risk of infection. /vira/ PAM CHENG HEALTH ASSISTANT Signed: 05/02/2024 10:59 BUBBA FULLER [facility]
--- OUTSIDE RECORDS SUMMARY | 2024-06-26 05:30 | XMS_ITS | Encounter Summary ---
Author Name [facility] [place] [facility] [place] Address [address] [place] [address] Care Team Providers Care Construction Area Manager Name Role Phone NAMITA BASS Primary Care [...] OF SERVICE VERIZ ON Sep 05, 2019 [id number] [phone] LOGAN GARCIA PATIENT [employer] ([id number]) PRESCRIPT ION VERIZ ON Sep 05, 2017 [id number] [phone] LOGAN GARCIA PATIENT MEDICARE (WNR) MEDICARE (M) PART A Aug 05, 2013 PART A [id number] LOGAN GARCIA JIANG PATIENT MEDICARE (WNR) MEDICARE (M) PART A Aug 05, 2013 PART A [id number] [phone] LOGAN GARCIA JIANG PATIENT MEDICARE (WNR) MEDICARE (M) PART A Aug 05, 2013 PART A [id number] LOGAN GARCAI JIANG PATIENT MEDICARE (WNR) MEDICARE (M) PART A Aug 05, 2013 PART A [id number] LOGAN GARCIA PATIENT MEDICARE PART D (WNR) PRESCRIPT ION PART D Aug 05, 2013 PART D [id number] LOGAN GARCIA PATIENT MEDICARE PART D (WNR) PRESCRIPT ION PART D Aug 05, 2013 PART D [id number] LOGAN GARCIA PATIENT [facility] RETIREE STEPHANIE ON Sep 05, 2016 [id number] [phone] LOGAN GARCIA PATIENT Selected Encounter This section includes the information on record at [place] for the Encounter. Date/Time Encounter Type Encounter Description Reason Provider Source Jun 26, 2024 09:30 AM OFFICE O/P EST HI 40 MIN PRIMARY CARE/MEDICINE ICD-10-CM M47.26 Other spondylosis with radiculopathy, lumbar region NAMITA BASS Delfino Encounter Template Text not used by [place] Assessments - Encounter Diagnoses This section includes the primary and secondary diagnoses documented for the Encounter. Date/Time Primary/Secondary Diagnosis Diagnosis Name Provider Source Jun 26, 2024 11:19 AM PRIMARY Other spondylosis with radiculopathy, lumbar region NAMITA BASS [facility] Jun 26, 2024 11:19 AM SECONDARY Carpal tunnel syndrome, bilateral upper limbs NAMITA BASS [facility] Jun 26, 2024 11:19 AM SECONDARY Encounter for immunization CHARLY CAMPOS [facility] Jun 26, 2024 11:19 AM SECONDARY Essential (primary) hypertension NAMITA BASS [facility] Jun 26, 2024 11:19 AM SECONDARY Hyperlipidemia, unspecified NAMITA BASS [facility] Jun 26, 2024 11:19 AM SECONDARY Type 2 diabetes mellitus with diabetic polyneuropathy NAMITA BASS [facility] Jun 26, 2024 11:19 AM SECONDARY Type 2 diabetes mellitus with unspecified complications NAMITA BASS [facility] Plan of Treatment: Future Appointments (+ 6 months) and Future Tests (+/- 45 days) The Plan of Treatment section includes future care activities for the patient from all [facility] treatment[facility]ilities. This section includes future appointments and future orders which are active, pending or scheduled. Future Appointments This section includes appointments that were scheduled to occur 6 months from the date of the Encounter, up to a maximum of 20 appointments. The data comes from all [place] treatment facilities. Appointment Date/Time Appointment Type Appointme nt Facility Name Jul 17, 2024 09:00 AM AMBULATORY - NONE [facility] Jul 31, 2024 10:30 AM AMBULATORY - SURGERY [facility] Sep 12, 2024 10:30 AM AMBULATORY - REHAB [facility]IC[facility] Sep 13, 2024 10:00 AM AMBULATORY - NONE [facility] Oct 01, 2024 09:00 AM AMBULATORY - SURGERY [facility] Oct 10, 2024 10:00 AM AMBULATORY - REHAB [facility] Oct 30, 2024 11:00 AM AMBULATORY - NONE [facility] Nov 06, 2024 03:00 PM AMBULATORY - SURGERY [facility] Nov 07, 2024 10:00 AM AMBULATORY - REHAB [facility] Dec 13, 2024 10:00 AM AMBULATORY - NONE [facility] Dec 19, 2024 08:30 AM AMBULATORY - NONE [facility] Lab Results: +/- 30 days of the encounter This section includes the Chemistry and Hematology Lab Results on record with [place] for the patient. Radiology Reports and Pathology Reports are provided separately, in subsequent sections. Lab Results This section contains the Chemistry/Hematology Results that were resulted 30 days before or 30 daysafter the date of the Encounter. Date/Time Source Result Type Result - Unit Interpretation Reference Range Specimen Type Comment Jun 19, 2024 09:16 AM [facility] LIPID PROFILE PLASMA Specimen Type: PLASMA Comment: DLDLREF RANGE: NEAR OR ABOVE OPTIMAL: 100-129 mg/dL BORDERLINE DLDLHIGH: 130-159 mg/dL HIGH: 160-189 mg/dL VERY HIGH: >=190 TRIG REF RANGE: BORDERLINE HIGH: 150-199 mg/dL HIGH: 200-499 mg/dL TRIG VERY HIGH: >=500 mg/dL CREA eGFR was calculated using the CKD-EPI 2020 equation. CHOL REF RANGE: BORDERLINE HIGH: 200-239 mg/dL HIGH: >=240 mg/dL Ordering Provider: NAMITA BASS Report Released Date/Time: Dec 26, 2023 10:17 AM Reporting Lab: [address] [id number] Performing Lab: [address] [address] CHOLESTEROL 114 mg/dL <199 LDL CHOLESTEROL 40 mg/dL <99 HDL CHOLESTEROL 20 mg/dL L >60 TRIGLYCERIDE 309 mg/dL H <149 Jun 19, 2024 09:16 AM [facility] HEMOGLOBIN A1C BLOOD Specimen Type: B LOOD Comment: Values obtained from A1C measurements can vary. For typical A1C assays, a reported value of 7.0 could actually be between 6.72 and 7.28 if measured by a reference method. A reported value of 9.0 could actually be between 8.73 and 9.27. Ref: http://www.[email or web address]/[email or web address] Ordering Provider: NAMITA BASS Report Released Date/Time: Dec 26, 2023 10:17 AM Reporting Lab: [address] [phone] Performing Lab: [place] [id number] HEMOGLOBIN A1C 7.3 H 3.6-5.7 Jun 19, 2024 09:16 AM [facility] TSH PLASMA Specimen Type: PLASMA Comment: DLDLREF RANGE: NEAR OR ABOVE OPTIMAL: 100-129 mg/dL BORDERLINE DLDLHIGH: 130-159 mg/dL HIGH: 160-189 mg/dL VERY HIGH: >=190 TRIG REF RANGE: BORDERLINE HIGH: 150-199 mg/dL HIGH: 200-499 mg/dL TRIG VERY HIGH: >=500 mg/dL CREA eGFR was calculated using the CKD-EPI 2020 equation. CHOL REF RANGE: BORDERLINE HIGH: 200-239 mg/dL HIGH: >=240 mg/dL Ordering Provider: NAMITA BASS Report Released Date/Time: Dec 26, 2023 10:17 AM Reporting Lab: [address] [phone] Performing Lab: [place] [id number] TSH 0.982 u[IU]/mL 0.360-4.500 Jun 19, 2024 09:16 AM [facility] COMPREHENSIVE METABOLIC PANEL PLASMA S pecimen Type: PLASMA Comment: DLDLREF RANGE: NEAR OR ABOVE OPTIMAL: 100-129 mg/dL BORDERLINE DLDLHIGH: 130-159 mg/dL HIGH: 160-189 mg/dL VERY HIGH: >=190 TRIG REF RANGE: BORDERLINE HIGH: 150-199 mg/dL HIGH: 200-499 mg/dL TRIG VERY HIGH: >=500 mg/dL CREA eGFR was calculated using the CKD-EPI 2020 equation. CHOL REF RANGE: BORDERLINE HIGH: 200-239 mg/dL HIGH: >=240 mg/dL Ordering Provider: NAMITA BASS Report Released Date/Time: Dec 26, 2023 10:17 AM Reporting Lab: [place] [id number] Performing Lab: [place] [id number] ALBUMIN 3.8 g/dL 3.2-4.6 ALKALINE PHOSPHATASE 40 U/L 40-150 ALT/SGPT 30 U/L <55 AST/SGOT 26 U/L 5-34 BUN 18 mg/dL 8.4-25.7 CALCIUM 8.9 mg/dL 8.8-10.0 CREATININE 1.3 mg/dL H 0.72-1.25 CO2 24 mmol/L 23-31 GLUCOSE 116 mg/dL H 82-115 PROTEIN, TOTAL 7.1 g/dL 6.4-8.3 SODIUM 140 mmol/L 136-145 CHLORIDE 106 mmol/L 98-107 BILIRUBIN, TOTAL 0.5 mg/dL 0.2-1.2 POTASSIUM 4.3 mmol/L 3.5-5.1 ANION GAP 14.3 mmol/L 10-20 EGFR (CALCULATED) 57.0 mL/min Jun 19, 2024 09:16 AM [facility] MICROALBUMIN/CREATININE RATIO PANEL URINE Specimen Type: URINE No comment entered. Ordering Provider: NAMITA BASS Report Released Date/Time: Dec 26, 2023 10:17 AM Reporting Lab: [address] [phone] Performing Lab: [place] [id number] MICROALBUMIN, URINE RANDOM 9 mg/dL <10 CREATININE, URINE RANDOM 76.48 mg/dL MICROALB/CREAT RATIO 117.70 mg/g H <19.9 Jun 19, 2024 09:16 AM [facility] FREE T4 PLASMA Specimen Type: PLASMA Comment: DLDLREF RANGE: NEAR OR ABOVE OPTIMAL: 100-129 mg/dL BORDERLINE DLDLHIGH: 130-159 mg/dL HIGH: 160-189 mg/dL VERY HIGH: >=190 TRIG REF RANGE: BORDERLINE HIGH: 150-199 mg/dL HIGH: 200-499 mg/dL TRIG VERY HIGH: >=500 mg/dL CREA eGFR was calculated using the CKD-EPI 2020 equation. CHOL REF RANGE: BORDERLINE HIGH: 200-239 mg/dL HIGH: >=240 mg/dL Ordering Provider: NAMITA BASS Report Released Date/Time: Dec 26, 2023 10:17 AM Reporting Lab: [place] [id number] Performing Lab: [place] [id number] FREE T4 0.85 ng/dL 0.7-1.48 Jun 19, 2024 09:16 AM [facility] CBC BLOOD Specimen Type: BLOOD No comment entered. Ordering Provider: NAMITA BASS Report Released Date/Time: Dec 26, 2023 10:17 AM Reporting Lab: [address] [phone] Performing Lab: [place] [id number] WBC COUNT 5.7 10*3/uL 3.6-11.0 RBC COUNT 5.18 10*6/uL 4.47-5.83 HGB 15.4 g/dL 13.6-17.4 HCT 46.8 40.0-51.0 MCV 90.3 fL 80.0-96.0 MCH 29.8 pg 27.0-31.0 MCHC 33.0 g/dL 31.5-36.5 PLT 101 10*3/uL L 150-400 LYMPHS % 32.6 21.0-51.0 MONOCYTES % 5.8 4.0-8.0 NUCLEATED RBC/100WBC 0.1 /100{WBCs} RDW 15.6 11.2-15.8 NEUTROPHIL % 58.0 54.0-78.0 EOSINOPHIL % 3.0 0.0-3.0 BASOPHIL % 0.6 0.0-3.0 ABSOLUTE LYMPHOCYTE COUNT 1.8 10*3/uL 0. 8-5.0 ABSOLUTE NEUTROPHIL COUNT 3.3 10*3/uL 1. 9-8.6 ABSOLUTE BASOPHIL COUNT 0.0 10*3/uL 0.0- 0.3 ABSOLUTE MONOCYTE COUNT 0.3 10*3/uL 0.1- 0.9 ABSOLUTE EOSINOPHIL COUNT 0.2 10*3/uL 0. 0-0.3 MPV 10.1 fL 7.4-11.4 Jun 19, 2024 09:16 AM [facility] URINALYSIS URINE Specimen Type: URINE No comment entered. Ordering Provider: NAMITA BASS Report Released Date/Time: Dec 26, 2023 10:17 AM Reporting Lab: [facility] [id number] [place] [phone] Performing Lab: [facility] [id number] [place] [phone] SPECIFIC GRAVITY 1.022 1.016-1.022 URINE GLUCOSE >1000 mg/dL H Negative URINE PROTEIN 10 mg/dL Negative URINE PH 6.0 5.0-8.0 NITRITE, URINE Negative Negative ESTERASE(WBC) Negative Negative URINE CLARITY Clear Clear URINE BILIRUBIN Negative mg/dL <=0.4 URINE BLOOD Negative mg/dL <0.05 UROBILINOGEN Negative mg/dL <=1 URINE KETONES Negative mg/dL <=9 URINE COLOR Colorless [none] Immunizations: All administered on the encounter date This section contains immunizations associated to the Encounter. Immunization Series Date Issued Administered By Site Reaction Lot Number CVX Code Drug Roller Hand Comment(s) Source COVID-19 (PFIZER), MRNA, LNP-S, PF, DANA-SUCROSE, 30 MCG/0.3 ML (AGES 12+ YEARS) Jun 26, 2024 BALBINA CAMPOS LEFT DELTO ID [id number] PFIZER, INC ADMINISTERE D AT [facility] INFLUENZA, HIGH-DOSE, TRIVALENT, PF Jun 26, 2024 BALBINA CAMPOS RIGHT DELTO ID [id number] A 135 [employer] PASTEUR ADMINISTERE D AT [facility] Social History: Smoking Status (Most current) and Tobacco Use (All prior to encounter date) This section includes the most current, and the historical, smoking and tobacco- related health factors from the [place] facility where the Encounter took place. Current Smoking Status This section includes the most current smoking, or tobacco-related health factor, from the [place] facility where the Encounter took place. Date/Time Current Smoking Status Comment Twan villaseñor Jun 26, 2024 09:30 AM [place]-TOBAC[place] FORMER USER [facility] Tobacco Use History This section includes a history of the smoking, or tobacco-related health factors, that were collected on or before the date of the Encounter. The data comes from the [place] facility where the Encounter took place. Date/Time Smoking Status/Tobacco Use Comment F acility Jun 26, 2024 09:30 AM [place]-TOBACCO QUIT 15 YRS OR MORE [facility] Jun 14, 2023 09:30 AM [place]-TOBAC[place] FORMER USER [facility] Jun 14, 2023 09:30 AM [place]-TOBACCO QUIT [...] this document. The data comes from all [place] facilities. Date Advance Directives Provider Source May 21, 2020 ADVANCE DIRECTIVE DISCUSSION [facility] Mar 29, 2018 ADVANCE DIRECTIVE DISCUSSION [facility] Encounter Notes: All associated encounter notes This section contains the clinical notes associated to the Encounter. Date/Time Encounter Note(s) Provider Source Aug 15, 2024 01:48 PM ADDENDUM: LOCAL TITLE: Addendum STANDARD TITLE: ADDENDUM DATE OF NOTE: AUG 15, 2024@13:48:36 ENTRY DATE: AUG 15, 2024@13:48:37 AUTHOR: JOSEE VANN EXP COSIGNER: URGENCY: STATUS: COMPLETED Spoke with and he is intersted in both PT and pain management. /vira/ JOSEE DANNY SMALLAngela REGISTERED NURSE Signed: 08/15/2024 13:49 Receipt Acknowledged By: 08/15/2024 16:51 /vria/ NAMITA BASS PHYSICIAN --- Original Document --- 06/26/24 PRIMARY CARE OUTPATIENT NOTE (T): In-person Note 73yo Reason for Visit: bilateral hand numbness and weakness persists. Pt had his EMG completed. States sometimes sx involve more than his hands, especially in thr mornings. Not using wrist splints. RLE - weaker. (+) numbness - involves mostly the whole leg now. Can walk about 50 yards without having to rest. Legs feel weak, lizbeth right, and lower back starts to hurt. Takes his rollator so he can sit when needed. right leg feels heavy at times. 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 Clnscpy fall 2010. nml mucosa. int. hemorrhoids. rpt 2018 2. 11/30/2021 - colonoscopy. 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 NAMITA BASS REVIEW OF SYSTEMS: PATIENT ALLERGIES DETAILED ALLERGIES/ADVERSE REACTIONS Type: DRUG Date/Time Reactant Severity Reaction 05/17/2007 08:09 PENICILLIN URTICARIA AMRS - MEDS (REC SUCCINCT) Active and Recently Inpatient, Outpatient and Clinic Medications (including Supplies): Active Outpatient Medications Status 1) ACCU-CHEK GUIDE (GLUCOSE) TEST STRIP USE 1 STRIP ACTIVE TESTING TWICE A DAY BEFORE MEALS (BREAKFAST & DINNER) FOR BLOOD SUGAR 2) ALCOHOL PREP PAD USE PAD(S) SUPPLY ITEM DIRECTED ACTIVE FOR PERSONAL CLEANSING 3) ATORVASTATIN CALCIUM 80MG TAB TAKE ONE TABLET BY ACTIVE MOUTH AT BEDTIME 4) CHLORTHALIDONE 25MG TAB TAKE ONE TABLET BY MOUTH ACTIVE EVERY DAY (WITH FOOD) 5) [id number]/[id number] G 24HR TAB TAKE 2 ACTIVE TABLETS BY MOUTH EVERY MORNING 6) HYDROPHILIC (EQV EUCERIN) TOP CREAM APPLY A ACTIVE SUFFICIENT AMOUNT EXTERNALLY EVERY DAY NEEDED TO DRY SKIN 7) ICOSAPENT ETHYL 1GM CAP TAKE TWO CAPSULES BY MOUTH ACTIVE TWICE A DAY WITH MEALS *SWALLOW CAPSULES WHOLE* 8) INSULIN SYRINGE 1ML 31G 6MM USE SYRINGE SUPPLY ITEM ACTIVE TWICE A DAY FOR INJECTION OF MEDICATION 9) INSULIN,GLARGINE-YFGN 100UNIT/ML INJ INJECT 60 UNITS ACTIVE SUBCUTANEOUSLY TWICE A DAY 10) LANCET,SOFTCLIX USE LANCET(S) TESTING DIRECTED FOR ACTIVE BLOOD SUGAR TESTING 11) LISINOPRIL 40MG TAB TAKE ONE TABLET BY MOUTH EVERY ACTIVE DAY 12) METOPROLOL SUCCINATE 100MG SA TAB TAKE ONE TABLET BY ACTIVE MOUTH EVERY DAY FOR BLOOD PRESSURE THIS REPLACES ATENOLOL 13) OMEPRAZOLE 20MG EC CAP TAKE ONE CAPSULE BY MOUTH ACTIVE EVERY MORNING, ON AN EMPTY STOMACH 14) PREGABALIN 150MG ORAL CAP TAKE ONE CAPSULE BY MOUTH ACTIVE TWICE A DAY FOR NERVE PAIN 15) PSYLLIUM SUGAR FREE STIR 1 ROUNDED ACTIVE TABLESPOONFUL IN 8 OUNCES OF WATER OR OTHER LIQUID BY MOUTH EVERY DAY NEEDED FOR REGULAR BOWELS 16) SEMAGLUTIDE 2MG/0.75ML INJ PEN 3ML INJECT 2MG ACTIVE SUBCUTANEOUSLY EVERY WEEK FOR TYPE 2 DIABETES MELLITUS FOR DIABETES AND BLOOD SUGAR CONTROL. KEEP REFRIGERATED, HOWEVER, MAY BE KEPT AT ROOM TEMPERATURE FOR UP TO 56 DAYS 17) TAMSULOSIN HCL 0.4MG CAP TAKE ONE CAPSULE BY MOUTH AT ACTIVE BEDTIME FOR ENLARGED PROSTATE Inactive Outpatient Medications Status 1) PREGABALIN 150MG ORAL CAP TAKE ONE CAPSULE BY MOUTH TWICE A DAY FOR NERVE PAIN 2) ZZINSULIN SYRINGE 1ML 31G 8MM USE SYRINGE SUPPLY ITEM TWICE A DAY FOR INSULIN INJECTIOS Active Non-VA Medications Status 1) Non-VA ASCORBIC ACID 500MG TAB 1000MG MOUTH EVERY DAY ACTIVE 2) Non-VA ASPIRIN 325MG EC TAB 325MG MOUTH EVERY DAY ACTIVE 3) Non-VA CHOLECALCIF 25MCG (D3-1,000UNIT) TAB 2000UNIT ACTIVE MOUTH EVERY DAY 4) Non-VA CYANOCOBALAMIN 1000MCG TAB 1000MCG MOUTH EVERY ACTIVE DAY 5) Non-VA GARLIC CAP/TAB 1 CAP/TAB MOUTH EVERY DAY ACTIVE 6) Non-VA INSULIN,ASPART(EQV-NOVLG)100UN /ML FLXPEN 5 ACTIVE UNITS SUBCUTANEOUSLY WITH BREAKFAST 7) Non-VA VITAMIN E 180MG (400UNIT) CAP 400UNT MOUTH ACTIVE EVERY DAY 26 Total Medications PHYSICAL EXAM: Vital Signs: T: 97.9 F [36.6 C] (06/26/2024 09:59) P: 72 (06/26/2024 09:59) R: 20 (06/26/2024 09:59) BP: 117/73 (06/26/2024 09:59) Pain: 4 (06/26/2024 10:04) Height: 74 in [188.0 cm] (2017 09:51) Weight: 299.1 lb [135.67 kg] (06/26/2024 09:59) Pulse Ox: 94% (06/26/2024 09:59) Pt alert, NAD. HRRR< LCTAB. (+) tenderness LS spine, especially SL junction and bialteral sacroiliac joints. DTR's absent throughout bilateral LE's. SLR negative for pain or neurologic sx. labs reviewed. HgbA1c 7.3%. lipids ok except trigs elevated. rest of labs ok. see results. reviewed EMG UE's - (+) CTS similar to previous findings. no evidence of cervical radiculopathy Reviewed MRI LS spine from 2018 - some central canal stenosis and findings of some foraminal impingement on left. no noted findings affecting right side. previous EMG bilateral LE's - neuropathy ASSESSMENT/PLAN: RLE numbness and weakness with neurogenic claudication - repeat MRI LS spine. offered PT. pt declined. Lidoderm patches for back pain. bilateral CTS - bilateral wrist splints at night. DM2 - cont meds. neuropathy - cont pregabalin HEALTH MAINTENANCE/CLINICAL REMINDERS: MEDICATION RECONCILIATION Medication Reconciliation report reviewed and discussed with patient/caregiver. VA prescription medications, non-VA prescription medications, OTC and herbal medications reviewed: Patient/caregiver verifies that the list is complete and accurate and voices understanding. FOLLOW-UP: recheck 6 mos. labs prior. call sooner if questions or concerns. I am the Attending Physician. TOTAL TIME SPENT: Spent 45 minutes in care of this patient today including review of records, exam, and placing orders. /hernandez BASS PHYSICIAN Signed: 06/26/2024 11:19 08/15/2024 ADDENDUM STATUS: COMPLETED MRI from 07/17/2024 was just resulted to chart 08/09/2024. MRI shows spinal stenosis and moderate left foraminal stenosis at L2-3 and L3-4 in the lumbar spine. No evidence of right foraminal stenosis. Findings sound similar to MRI in 2018. Please advise pt of MRI results. Would recommend PT and consult to pain management, if pt is agreeable. /hernandez BASS PHYSICIAN Signed: 08/15/2024 08:51 Receipt Acknowledged By: 08/15/2024 13:44 /es/ JOSEE VANN REGISTERED NURSE JOSEE VANN [facility] Aug 15, 2024 08:45 AM ADDENDUM: LOCAL TITLE: Addendum STANDARD TITLE: ADDENDUM DATE OF NOTE: AUG 15, 2024@08:45:11 ENTRY DATE: AUG 15, 2024@08:45:12 AUTHOR: NAMITA BASS EXP COSIGNER: URGENCY: STATUS: COMPLETED MRI from 07/17/2024 was just resulted to chart 08/09/2024. MRI shows spinal stenosis and moderate left foraminal stenosis at L2-3 and L3-4 in the lumbar spine. No evidence of right foraminal stenosis. Findings sound similar to MRI in 2018. Please advise pt of MRI results. Would recommend PT and consult to pain management, if pt is agreeable. /hernandez BASS PHYSICIAN Signed: 08/15/2024 08:51 Receipt Acknowledged By: 08/15/2024 13:44 /es/ JOSEE VANN REGISTERED NURSE --- Original Document --- 06/26/24 PRIMARY CARE OUTPATIENT NOTE (T): In-person Note 73yo [place] Reason for Visit: bilateral hand numbness and weakness persists. Pt had his EMG completed. States sometimes sx involve more than his hands, especially in thr mornings. Not using wrist splints. RLE - weaker. (+) numbness - involves mostly the whole leg now. Can walk about 50 yards without having to rest. Legs feel weak, lizbeth right, and lower back starts to hurt. Takes his rollator so he can sit when needed. right leg feels heavy at times. 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 Clnscpy fall 2010. nml mucosa. int. hemorrhoids. rpt 2018 2. 11/30/2021 - colonoscopy. 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 NAMITA BASS REVIEW OF SYSTEMS: PATIENT ALLERGIES DETAILED ALLERGIES/ADVERSE REACTIONS Type: DRUG Date/Time Reactant Severity Reaction 05/17/2007 08:09 PENICILLIN URTICARIA AMRS - MEDS (REC SUCCINCT) Active and Recently Inpatient, Outpatient and Clinic Medications (including Supplies): Active Outpatient Medications Status 1) ACCU-CHEK GUIDE (GLUCOSE) TEST STRIP USE 1 STRIP ACTIVE TESTING TWICE A DAY BEFORE MEALS (BREAKFAST & DINNER) FOR BLOOD SUGAR 2) ALCOHOL PREP PAD USE PAD(S) SUPPLY ITEM DIRECTED ACTIVE FOR PERSONAL CLEANSING 3) ATORVASTATIN CALCIUM 80MG TAB TAKE ONE TABLET BY ACTIVE MOUTH AT BEDTIME 4) CHLORTHALIDONE 25MG TAB TAKE ONE TABLET BY MOUTH ACTIVE EVERY DAY (WITH FOOD) 5) [id number]/[id number] G 24HR TAB TAKE 2 ACTIVE TABLETS BY MOUTH EVERY MORNING 6) HYDROPHILIC (EQV EUCERIN) TOP CREAM APPLY A ACTIVE SUFFICIENT AMOUNT EXTERNALLY EVERY DAY NEEDED TO DRY SKIN 7) ICOSAPENT ETHYL 1GM CAP TAKE TWO CAPSULES BY MOUTH ACTIVE TWICE A DAY WITH MEALS *SWALLOW CAPSULES WHOLE* 8) INSULIN SYRINGE 1ML 31G 6MM USE SYRINGE SUPPLY ITEM ACTIVE TWICE A DAY FOR INJECTION OF MEDICATION 9) INSULIN,GLARGINE-YFGN 100UNIT/ML INJ INJECT 60 UNITS ACTIVE SUBCUTANEOUSLY TWICE A DAY 10) LANCET,SOFTCLIX USE LANCET(S) TESTING DIRECTED FOR ACTIVE BLOOD SUGAR TESTING 11) LISINOPRIL 40MG TAB TAKE ONE TABLET BY MOUTH EVERY ACTIVE DAY 12) METOPROLOL SUCCINATE 100MG SA TAB TAKE ONE TABLET BY ACTIVE MOUTH EVERY DAY FOR BLOOD PRESSURE THIS REPLACES ATENOLOL 13) OMEPRAZOLE 20MG EC CAP TAKE ONE CAPSULE BY MOUTH ACTIVE EVERY MORNING, ON AN EMPTY STOMACH 14) PREGABALIN 150MG ORAL CAP TAKE ONE CAPSULE BY MOUTH ACTIVE TWICE A DAY FOR NERVE PAIN 15) PSYLLIUM SUGAR FREE STIR 1 ROUNDED ACTIVE TABLESPOONFUL IN 8 OUNCES OF WATER OR OTHER LIQUID BY MOUTH EVERY DAY NEEDED FOR REGULAR BOWELS 16) SEMAGLUTIDE 2MG/0.75ML INJ PEN 3ML INJECT 2MG ACTIVE SUBCUTANEOUSLY EVERY WEEK FOR TYPE 2 DIABETES MELLITUS FOR DIABETES AND BLOOD SUGAR CONTROL. KEEP REFRIGERATED, HOWEVER, MAY BE KEPT AT ROOM TEMPERATURE FOR UP TO 56 DAYS 17) TAMSULOSIN HCL 0.4MG CAP TAKE ONE CAPSULE BY MOUTH AT ACTIVE BEDTIME FOR ENLARGED PROSTATE Inactive Outpatient Medications Status 1) PREGABALIN 150MG ORAL CAP TAKE ONE CAPSULE BY MOUTH TWICE A DAY FOR NERVE PAIN 2) ZZINSULIN SYRINGE 1ML 31G 8MM USE SYRINGE SUPPLY ITEM TWICE A DAY FOR INSULIN INJECTIOS Active Non-VA Medications Status 1) Non-VA ASCORBIC ACID 500MG TAB 1000MG MOUTH EVERY DAY ACTIVE 2) Non-VA ASPIRIN 325MG EC TAB 325MG MOUTH EVERY DAY ACTIVE 3) Non-VA CHOLECALCIF 25MCG (D3-1,000UNIT) TAB 2000UNIT ACTIVE MOUTH EVERY DAY 4) Non-VA CYANOCOBALAMIN 1000MCG TAB 1000MCG MOUTH EVERY ACTIVE DAY 5) Non-VA GARLIC CAP/TAB 1 CAP/TAB MOUTH EVERY DAY ACTIVE 6) Non-VA INSULIN,ASPART(EQV-NOVLG)100UN /ML FLXPEN 5 ACTIVE UNITS SUBCUTANEOUSLY WITH BREAKFAST 7) Non-VA VITAMIN E 180MG (400UNIT) CAP 400UNT MOUTH ACTIVE EVERY DAY 26 Total Medications PHYSICAL EXAM: Vital Signs: T: 97.9 F [36.6 C] (06/26/2024 09:59) P: 72 (06/26/2024 09:59) R: 20 (06/26/2024 09:59) BP: 117/73 (06/26/2024 09:59) Pain: 4 (06/26/2024 10:04) Height: 74 in [188.0 cm] (2017 09:51) Weight: 299.1 lb [135.67 kg] (06/26/2024 09:59) Pulse Ox: 94% (06/26/2024 09:59) Pt alert, NAD. HRRR< LCTAB. (+) tenderness LS spine, especially SL junction and bialteral sacroiliac joints. DTR's absent throughout bilateral LE's. SLR negative for pain or neurologic sx. labs reviewed. HgbA1c 7.3%. lipids ok except trigs elevated. rest of labs ok. see results. reviewed EMG UE's - (+) CTS similar to previous findings. no evidence of cervical radiculopathy Reviewed MRI LS spine from 2018 - some central canal stenosis and findings of some foraminal impingement on left. no noted findings affecting right side. previous EMG bilateral LE's - neuropathy ASSESSMENT/PLAN: RLE numbness and weakness with neurogenic claudication - repeat MRI LS spine. offered PT. pt declined. Lidoderm patches for back pain. bilateral CTS - bilateral wrist splints at night. DM2 - cont meds. neuropathy - cont pregabalin HEALTH MAINTENANCE/CLINICAL REMINDERS: MEDICATION RECONCILIATION Medication Reconciliation report reviewed and discussed with patient/caregiver. VA prescription medications, non-VA prescription medications, OTC and herbal medications reviewed: Patient/caregiver verifies that the list is complete and accurate and voices understanding. FOLLOW-UP: recheck 6 mos. labs prior. call sooner if questions or concerns. I am the Attending Physician. TOTAL TIME SPENT: Spent 45 minutes in care of this patient today including review of records, exam, and placing orders. /vira/ NAMITA BASS PHYSICIAN Signed: 06/26/2024 11:19 NAMITA BASS [facility] Jun 26, 2024 10:22 AM INTERNAL MEDICINE OUTPATIENT NOTE: LOCAL TITLE: PRIMARY CARE OUTPATIENT NOTE (T) STANDARD TITLE: INTERNAL MEDICINE OUTPATIENT NOTE DATE OF NOTE: JUN 26, 2024@10:22 ENTRY DATE: JUN 26, 2024@10:23:01 AUTHOR: NAMITA BASS EXP COSIGNER: URGENCY: STATUS: COMPLETED PRIMARY CARE OUTPATIENT NOTE (T) Has ADDENDA In-person Note 73yo Reason for Visit: bilateral hand numbness and weakness persists. Pt had his EMG completed. States sometimes sx involve more than his hands, especially in thr mornings. Not using wrist splints. RLE - weaker. (+) numbness - involves mostly the whole leg now. Can walk about 50 yards without having to rest. Legs feel weak, lizbeth right, and lower back starts to hurt. Takes his rollator so he can sit when needed. right leg feels heavy at times. 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 Clnscpy fall 2010. nml mucosa. int. hemorrhoids. rpt 2018 2. 11/30/2021 - colonoscopy. 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 NAMITA BASS REVIEW OF SYSTEMS: PATIENT ALLERGIES DETAILED ALLERGIES/ADVERSE REACTIONS Type: DRUG Date/Time Reactant Severity Reaction 05/17/2007 08:09 PENICILLIN URTICARIA AMRS - MEDS (REC SUCCINCT) Active and Recently Inpatient, Outpatient and Clinic Medications (including Supplies): Active Outpatient Medications Status 1) ACCU-CHEK GUIDE (GLUCOSE) TEST STRIP USE 1 STRIP ACTIVE TESTING TWICE A DAY BEFORE MEALS (BREAKFAST & DINNER) FOR BLOOD SUGAR 2) ALCOHOL PREP PAD USE PAD(S) SUPPLY ITEM DIRECTED ACTIVE FOR PERSONAL CLEANSING 3) ATORVASTATIN CALCIUM 80MG TAB TAKE ONE TABLET BY ACTIVE MOUTH AT BEDTIME 4) CHLORTHALIDONE 25MG TAB TAKE ONE TABLET BY MOUTH ACTIVE EVERY DAY (WITH FOOD) 5) OQLVMABEWYQFV24.5/[id number] G 24HR TAB TAKE 2 ACTIVE TABLETS BY MOUTH EVERY MORNING 6) HYDROPHILIC (EQV EUCERIN) TOP CREAM APPLY A ACTIVE SUFFICIENT AMOUNT EXTERNALLY EVERY DAY NEEDED TO DRY SKIN 7) ICOSAPENT ETHYL 1GM CAP TAKE TWO CAPSULES BY MOUTH ACTIVE TWICE A DAY WITH MEALS *SWALLOW CAPSULES WHOLE* 8) INSULIN SYRINGE 1ML 31G 6MM USE SYRINGE SUPPLY ITEM ACTIVE TWICE A DAY FOR INJECTION OF MEDICATION 9) INSULIN,GLARGINE-YFGN 100UNIT/ML INJ INJECT 60 UNITS ACTIVE SUBCUTANEOUSLY TWICE A DAY 10) LANCET,SOFTCLIX USE LANCET(S) TESTING DIRECTED FOR ACTIVE BLOOD SUGAR TESTING 11) LISINOPRIL 40MG TAB TAKE ONE TABLET BY MOUTH EVERY ACTIVE DAY 12) METOPROLOL SUCCINATE 100MG SA TAB TAKE ONE TABLET BY ACTIVE MOUTH EVERY DAY FOR BLOOD PRESSURE THIS REPLACES ATENOLOL 13) OMEPRAZOLE 20MG EC CAP TAKE ONE CAPSULE BY MOUTH ACTIVE EVERY MORNING, ON AN EMPTY STOMACH 14) PREGABALIN 150MG ORAL CAP TAKE ONE CAPSULE BY MOUTH ACTIVE TWICE A DAY FOR NERVE PAIN 15) PSYLLIUM SUGAR FREE STIR 1 ROUNDED ACTIVE TABLESPOONFUL IN 8 OUNCES OF WATER OR OTHER LIQUID BY MOUTH EVERY DAY NEEDED FOR REGULAR BOWELS 16) SEMAGLUTIDE 2MG/0.75ML INJ PEN 3ML INJECT 2MG ACTIVE SUBCUTANEOUSLY EVERY WEEK FOR TYPE 2 DIABETES MELLITUS FOR DIABETES AND BLOOD SUGAR CONTROL. KEEP REFRIGERATED, HOWEVER, MAY BE KEPT AT ROOM TEMPERATURE FOR UP TO 56 DAYS 17) TAMSULOSIN HCL 0.4MG CAP TAKE ONE CAPSULE BY MOUTH AT ACTIVE BEDTIME FOR ENLARGED PROSTATE Inactive Outpatient Medications Status 1) PREGABALIN 150MG ORAL CAP TAKE ONE CAPSULE BY MOUTH TWICE A DAY FOR NERVE PAIN 2) ZZINSULIN SYRINGE 1ML 31G 8MM USE SYRINGE SUPPLY ITEM TWICE A DAY FOR INSULIN INJECTIOS Active Non-VA Medications Status 1) Non-VA ASCORBIC ACID 500MG TAB 1000MG MOUTH EVERY DAY ACTIVE 2) Non-VA ASPIRIN 325MG EC TAB 325MG MOUTH EVERY DAY ACTIVE 3) Non-VA CHOLECALCIF 25MCG (D3-1,000UNIT) TAB 2000UNIT ACTIVE MOUTH EVERY DAY 4) Non-VA CYANOCOBALAMIN 1000MCG TAB 1000MCG MOUTH EVERY ACTIVE DAY 5) Non-VA GARLIC CAP/TAB 1 CAP/TAB MOUTH EVERY DAY ACTIVE 6) Non-VA INSULIN,ASPART(EQV-NOVLG)100UN /ML FLXPEN 5 ACTIVE UNITS SUBCUTANEOUSLY WITH BREAKFAST 7) Non-VA VITAMIN E 180MG (400UNIT) CAP 400UNT MOUTH ACTIVE EVERY DAY 26 Total Medications PHYSICAL EXAM: Vital Signs: T: 97.9 F [36.6 C] (06/26/2024 09:59) P: 72 (06/26/2024 09:59) R: 20 (06/26/2024 09:59) BP: 117/73 (06/26/2024 09:59) Pain: 4 (06/26/2024 10:04) Height: 74 in [188.0 cm] (2017 09:51) Weight: 299.1 lb [135.67 kg] (06/26/2024 09:59) Pulse Ox: 94% (06/26/2024 09:59) Pt alert, NAD. HRRR< LCTAB. (+) tenderness LS spine, especially SL junction and bialteral sacroiliac joints. DTR's absent throughout bilateral LE's. SLR negative for pain or neurologic sx. labs reviewed. HgbA1c 7.3%. lipids ok except trigs elevated. rest of labs ok. see results. reviewed EMG UE's - (+) CTS similar to previous findings. no evidence of cervical radiculopathy Reviewed MRI LS spine from 2018 - some central canal stenosis and findings of some foraminal impingement on left. no noted findings affecting right side. previous EMG bilateral LE's - neuropathy ASSESSMENT/PLAN: RLE numbness and weakness with neurogenic claudication - repeat MRI LS spine. offered PT. pt declined. Lidoderm patches for back pain. bilateral CTS - bilateral wrist splints at night. DM2 - cont meds. neuropathy - cont pregabalin HEALTH MAINTENANCE/CLINICAL REMINDERS: MEDICATION RECONCILIATION Medication Reconciliation report reviewed and discussed with patient/caregiver. VA prescription medications, non-VA prescription medications, OTC and herbal medications reviewed: Patient/caregiver verifies that the list is complete and accurate and voices understanding. FOLLOW-UP: recheck 6 mos. labs prior. call sooner if questions or concerns. I am the Attending Physician. TOTAL TIME SPENT: Spent 45 minutes in care of this patient today including review of records, exam, and placing orders. /vira/ NAMITA BASS PHYSICIAN Signed: 06/26/2024 11:19 08/15/2024 ADDENDUM STATUS: COMPLETED MRI from 07/17/2024 was just resulted to chart 08/09/2024. MRI shows spinal stenosis and moderate left foraminal stenosis at L2-3 and L3-4 in the lumbar spine. No evidence of right foraminal stenosis. Findings sound similar to MRI in 2018. Please advise pt of MRI results. Would recommend PT and consult to pain management, if pt is agreeable. /hernandez BASS PHYSICIAN Signed: 08/15/2024 08:51 Receipt Acknowledged By: 08/15/2024 13:44 /vira/ JOSEE VANN REGISTERED NURSE 08/15/2024 ADDENDUM STATUS: COMPLETED Spoke with and he is intersted in both PT and pain management. /es/ JOSEE ROMEROPAPI SMALLAngela REGISTERED NURSE Signed: 08/15/2024 13:49 Receipt Acknowledged By: * AWAITING SIGNATURE * NAMITA BASS KELLY L [facility] Jun 26, 2024 10:00 AM PRIMARY CARE NURSI NG NOTE: LOCAL TITLE: OUTPATIENT NURSING INTAKE NOTE (T) STANDARD TITLE: PRIMARY CARE NURSING NOTE DATE OF NOTE: JUN 26, 2024@10:00 ENTRY DATE: JUN 26, 2024@10:00:53 AUTHOR: FARZANA CAMPOS COSIGNER: URGENCY: STATUS: COMPLETED Hemoglobin A1C Results: Collection DT Specimen Test Name Result Units Ref Range 06/19/2024 09:16 BLOOD HEMOGLOBIN A1C 7.3 H % 3.6 - 5.7 Comment: Values obtained from A1C measurements can vary. For typical A1C Comment: assays, a reported value of 7.0 could actually be between 6.72 and Comment: 7.28 if measured by a reference method. A reported value of 9.0 Comment: could actually be between 8.73 and 9.27. Ref: Comment: http://www.ngsp.org/CAPdata.as p 12/19/2023 08:28 BLOOD HEMOGLOBIN A1C 7.2 H % 3.6 - 5.7 Comment: Values obtained from A1C measurements can vary. For typical A1C Comment: assays, a reported value of 7.0 could actually be between 6.72 and Comment: 7.28 if measured by a reference method. A reported value of 9.0 Comment: could actually be between 8.73 and 9.27. Ref: Comment: http://www.ngsp.org/CAPdata.as p 06/07/2023 08:20 BLOOD HEMOGLOBIN A1C 7.0 H % 3.6 - 5.7 Comment: Values obtained from A1C measurements can vary. For typical A1C Comment: assays, a reported value of 7.0 could actually be between 6.72 and Comment: 7.28 if measured by a reference method. A reported value of 9.0 Comment: could actually be between 8.73 and 9.27. Ref: Comment: http://www.ngsp.org/CAPdata.as p Review Allergies Allergies reviewed and updated per protocol. ALLERGIES/ADVERSE REACTIONS Type: DRUG Date/Time Reactant Severity Reaction 05/17/2007 08:09 PENICILLIN URTICARIA MEDICATION LIST REVIEW REPORT Patient states no change in documented OTC/Herbals at this visit. 1. Has the patient been feeling sad or distressed? No 2. Has the patient been having personal or family problems? No 3. Has the patient been experiencing worry and/or stress? No 4. Has the patient been having problems with drugs and/or alcohol? No 5. Crisis Line pocket card was provided to patient. No/patient declined Last [facility] MAP ([place] [place]): No Data Available Clinical Reminders Activity Alcohol Use Screen (AUDIT-C): Alcohol Screen: SCREEN FOR ALCOHOL (AUDIT-C) An alcohol screening test (AUDIT-C) was negative (score=2). 1. How often did you have a drink containing alcohol in the past year? Consider a drink to be a 12 ounce can or bottle of regular beer, 8 ounces of malt liquor, a 5 ounce glass of table wine, or a 1.5 ounce shot of liquor (like scotch, gin, or vodka). Two to four times a month 2. How many drinks containing alcohol did you have on a typical day when you were drinking in the past year? One or two drinks 3. How often did you have six or more drinks on one occasion in the past year? Never COVID-19 Immunization: Pfizer Monovalent (Comirnaty) Administered: COVID-19 (PFIZER), MRNA, LNP-S, PF, DANA-SUCROSE, 30 MCG/0.3 ML (AGES 12+ YEARS) Date Administered: Jun 26, 2024 09:30 Roller Hand: [employer] Lot: [id number] Exp Date: Dec 04, 2024 [facility]: [phone] Admin Route/Site: INTRAMUSCULAR/LEFT DELTOID Dosage: 0.3mL Vaccine Information Statement(s): COVID-19 MRNA VACCINE (12+ YRS) VACCINE VIS Jun 23, 2023 ([place]) Order By: Policy Administered By: Farzana Campos Vaccine administered without complications. Depression Screening: Perform PHQ-2 A PHQ-2 screen was performed. The score was 0 which is a negative screen for depression. Over the past two weeks, how often have you been bothered by the following problems? 1. Little interest or pleasure in doing things Not at all 2. Feeling down, depressed, or hopeless Not at all Influenza Immunization: Influenza, High-Dose, Trivalent, Preservative Free (Fluzone-Syringe) Administered: INFLUENZA, HIGH-DOSE, TRIVALENT, PF Date Administered: Jun 26, 2024 09:30 Roller Hand: [employer] Lot: [id number] Exp Date: Mar 04, 2025 [facility]: [phone] Admin Route/Site: INTRAMUSCULAR/RIGHT DELTOID Dosage: 0.5mL Vaccine Information Statement(s): INFLUENZA(FLU) VACC(INACTIVATED OR RECOMBINANT)VIS Apr 10, 2021 ([place]) Order By: Policy Administered By: Farzana Campos The Influenza Vaccine Information Statement (VIS) was reviewed with the patient/caregiver which lists the benefits and risks of the vaccine and the risks of not receiving the Influenza vaccine. The patient/caregiver denied any prior severe reaction to this vaccine or its components or a severe allergic reaction, such as anaphylaxis, to any vaccine or any injectable therapy. The patient/caregiver gave verbal consent to receive the vaccine. Pain, Brief Evaluation: Type of pain: Ongoing Location: arms and hands and right knee Intensity: Currently: 4 Usually: 4 Description of Pain: Aching Numb Sore Tingling Patient Education Documentation: LEARNING NEEDS ASSESSMENT: The patient/family/significant other reports no changes in learning needs. Suicide Screen: C-SSRS Screening [place] Suicide Severity Rating Scale (C-SSRS) screener 1. Over the past month, have you wished you were or wished you could go to sleep and not wake up? No 2. Over the past month, have you had any actual thoughts of killing yourself? No 3. Over the past month, have you been thinking about how you might do this? Response not required due to responses to other questions. 4. Over the past month, have you had these thoughts and had some intention of acting on them? Response not required due to responses to other questions. 5. Over the past month, have you started to work out or worked out the details of how to kill yourself? Response not required due to responses to other questions. 6. If yes, at any time in the past month did you intend to carry out this plan? Response not required due to responses to other questions. 7. In your lifetime, have you ever done anything, started to do anything, or prepared to do anything to end your life (for example, collected pills, obtained a gun, gave away valuables, went to the roof but didn't jump)? No 8. If YES, was this within the past 3 months? Response not required due to responses to other questions. Tobacco Use Screening: The patient is a former tobacco user. The patient quit fifteen or more years ago. /vira/ FARZANA CAMPOS LICENSED PRACTICAL NURSE Signed: 06/26/2024 10:13 FARZANA CAMPOS [facility]
--- OUTSIDE RECORDS SUMMARY | 2024-07-31 06:30 | XMS_ITS | Encounter Summary ---
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 Name Role Phone NAMITA BASS Primary [...] OF SERVICE VERIZ ON Sep 05, 2019 [id number] LOGAN GARCIA PATIENT [employer] ([id number]) PRESCRIPT ION VERIZ ON Sep 05, 2017 [id number] LOGAN GARCIA PATIENT MEDICARE (WNR) MEDICARE (M) PART A Aug 05, 2013 PART A [id number] LOGAN GARCIA JIANG PATIENT MEDICARE (WNR) MEDICARE (M) PART A Aug 05, 2013 PART A [id number] [phone] LOGAN GARCIA JIANG PATIENT MEDICARE (WNR) MEDICARE (M) PART A Aug 05, 2013 PART A [id number] LOGAN GARCIA JIANG PATIENT MEDICARE (WNR) MEDICARE (M) PART A Aug 05, 2013 PART A [id number] LOGAN GARCIA PATIENT MEDICARE PART D (WNR) PRESCRIPT ION PART D Aug 05, 2013 PART D [id number] LOGAN GARCIA PATIENT MEDICARE PART D (WNR) PRESCRIPT ION PART D Aug 05, 2013 PART D [id number] LOGAN GARCIA PATIENT [facility] ON Sep 05, 2016 [id number] [phone] LOGAN GARCIA PATIENT Selected Encounter This section includes the information on record at [place] for the Encounter. Date/Time Encounter Type Encounter Description Reason Provider Source Jul 31, 2024 10:30 AM [facility]BR[facility] NAIL 6 OR MORE PODIATRY ICD-10-CM E11.42 Type 2 diabetes mellitus with diabetic polyneuropathy BUBBA FULLER Encounter Template Text not used by [place] Assessments - Encounter Diagnoses This section includes the primary and secondary diagnoses documented for the Encounter. Date/Time Primary/Secondary Diagnosis Diagnosis Name Provider Source Jul 31, 2024 12:22 PM PRIMARY Type 2 diabetes mellitus with diabetic polyneuropathy BUBBA FULLER [facility] Jul 31, 2024 12:22 PM SECONDARY Tinea unguium BUBBA FULLER [facility] Jul 31, 2024 12:22 PM SECONDARY Type 2 diabetes mellitus with unspecified complications BUBBA FULLER [facility] Plan of Treatment: Future Appointments (+ 6 months) and Future Tests (+/- 45 days) The Plan of Treatment section includes future care activities for the patient from all [place] treatmentfacilities. This section includes future appointments and future orders which are active, pending or scheduled. Future Appointments This section includes appointments that were scheduled to occur 6 months from the date of the Encounter, up to a maximum of 20 appointments. The data comes from all [place] treatment facilities. Appointment Date/Time Appointment Type Appointme nt Facility Name Sep 12, 2024 10:30 AM AMBULATORY - [facility] Sep 13, 2024 10:00 AM AMBULATORY - NONE [facility] Oct 01, 2024 09:00 AM AMBULATORY - SURGERY KARENA YBARRA [facility] Oct 10, 2024 10:00 AM AM[facility]ULATORY - [facility] Oct 30, 2024 11:00 AM [facility]ONE [facility] Nov 06, 2024 03:00 PM AMBULATORY - SURGERY MARYJANE HARGROVE [facility] Nov 07, 2024 10:00 AM AM[facility]ULATORY - [facility] Dec 13, 2024 10:00 AM AM[facility]ULATORY - NONE [facility] Dec 19, 2024 08:30 AM AMBULATORY - NONE [facility] Dec 26, 2024 11:00 AM AMBULATORY - NONE [facility] Social History: Smoking Status (Most current) and Tobacco Use (All prior to encounter date) This section includes the most current, and the historical, smoking and tobacco- related health factors from the [place] facility where the Encounter took place. Current Smoking Status This section includes the most current smoking, or tobacco-related health factor, from the [place] facility where the Encounter took place. Date/Time Current Smoking Status Comment Facil ity Jun 26, 2024 09:30 AM VA-TOBACCO FORMER USER [facility] Tobacco Use History This section includes a history of the smoking, or tobacco-related health factors, that were collected on or before the date of the Encounter. The data comes from the [place] facility where the Encounter took place. Date/Time [...] AM QUIT TOBACCO >7 YEARS AGO [facility] May 17, 2007 08:13 AM QUIT TOBACCO >7 YEARS AGO [facility] Advance Directives: All historical and current Section Date Range: From patient's date of to the date document was created. This section includes ALL of a patient's completed or amended [place] Advance and Rescinded Directives. The entries below indicate that a directive exists for the patient, but an actual copy is not included with this document. The data comes from all [place] facilities. Date Advance Directives Provider Source May 21, 2020 ADVANCE DIRECTIVE DISCUSSION DEEP SAGASTUME [facility] Mar 29, 2018 [facility]ANCE DIRECTIVE DISCUSSION [facility] Encounter Notes: All associated encounter notes This section contains the clinical notes associated to the Encounter. Date/Time Encounter Note(s) Provider Source Jul 31, 2024 07:18 AM PODIATRY NURSING O UTPATIENT NOTE: LOCAL TITLE: PODIATRY [facility] NURSING NOTE (T) STANDARD TITLE: PODIATRY NURSING OUTPATIENT NOTE DATE OF NOTE: JUL 31, 2024@07:18 ENTRY DATE: JUL 31, 2024@07:18:09 AUTHOR: BUBBA FULLER COSIGNER: URGENCY: STATUS: COMPLETED PODIATRY [facility] NURSING NOTE (T) Has ADDENDA SUBJECTIVE: 73 year old vet ambulated into the clinic without assistance. CHIEF COMPLAINT: Vet here for foot and toenail care. Edith is a diabetic, last A1c 7.3 on 06/19/24. Vet states his blood sugar this am was 137. Vet denies any pain in his feet or ankles. Review Allergies Allergies reviewed and updated per protocol. ALLERGIES/ADVERSE REACTIONS Type: DRUG Date/Time Reactant Severity Reaction 05/17/2007 08:09 PENICILLIN URTICARIA MEDICATION LIST REVIEW REPORT Patient states no change in documented OTC/Herbals at this visit. OBJECTIVE: VASCULAR: - DP/PT barely palpable, dopplered b/l biphasic - CFT < 3 secs b/l - Skin temp from heels to toes warm to warm b/l DERMATOLOGIC: - Nails 15 b/l elongated, thickened and yellow. - Web spaces clean and dry b/l - Skin intact, no open lesions or cracking noted. No edema, varicosities or hair. NEUROLOGIC: - Protective sensation deminished 6/10 left foot, 4/10 right foot checked with SWMF. Lite sensation left foot both heel/toes none on right. MUSCULOSKELETAL: - Muscle strength 5/5 in all four quadrants. - ROM within normal limits. - Mild reducible hammertoe deformities 2-4 b/l [...] reviewing the H&P and clinical findings, the Dr. Cheng made the diagnosis of: Diabetes Mellitus with neuropathy, onychomycosis, venous insufficiency PLAN: Dr. Cheng examined the patient, was consulted, and directed care of this patient. Treatment today consisted of: - 10 nails debrided and dremeled without incident. - Reviewed diabetic foot education with vet - RTC in 3 months with customer service representative teller. /vira/ BUBBA FULLER LICENSED PRACTICAL NURSE Signed: 07/31/2024 12:22 Receipt Acknowledged By: 07/31/2024 12:28 /vira/ PAM CHENG CUTCH CLEANER 07/31/2024 ADDENDUM STATUS: COMPLETED Agree with the above assessment and treatment plan. Treatment plan/Debridement to reduce painful ambulation and risk of infection. /vira/ PAM CHENG CUTCH CLEANER Signed: 07/31/2024 12:28 BUBBA FULLER [facility]
--- OUTSIDE RECORDS SUMMARY | 2024-09-12 06:30 | XMS_ITS | Encounter Summary ---
Author Name [facility] Organization [facility] [place] Address [address] [place] [address] Care Team Providers Care Polymer Specialist Name Role Phone NAMITA BASS Primary Care [...] OF SERVICE VERIZ ON Sep 05, 2019 [id number] [phone] LOGAN GARCIA PATIENT [employer] ([id number]) PRESCRIPT ION VERIZ ON Sep 05, 2017 [id number] [phone] LOGAN GARCIA PATIENT MEDICARE (WNR) MEDICARE (M) PART A Aug 05, 2013 PART A [id number] LOGAN GACRIA PATIENT MEDICARE (WNR) MEDICARE (M) PART A Aug 05, 2013 PART A [id number] [phone] LOGAN GARCIA PATIENT MEDICARE (WNR) MEDICARE (M) PART A Aug 05, 2013 PART A [id number] [phone] LOGAN GARCIA PATIENT MEDICARE (WNR) MEDICARE (M) PART A Aug 05, 2013 PART A [id number] LOGAN GARCIA PATIENT MEDICARE PART D (WNR) PRESCRIPT ION PART D Aug 05, 2013 PART D [id number] [phone] LOGAN GARCIA PATIENT MEDICARE PART D (WNR) PRESCRIPT ION PART D Aug 05, 2013 PART D [id number] LOGAN GARCIA PATIENT [facility] STEPHANIE ON Sep 05, 2016 [id number] [phone] LOGAN GARCIA PATIENT Selected Encounter This section includes the information on record at [place] for the Encounter. Date/Time Encounter Type Encounter Description Reason Provider Source Sep 12, 2024 10:30 AM THERAPEUTIC EXERCISES PHYSICAL THERAPY ICD-10-CM M47.26 Other spondylosis with radiculopathy, lumbar region EMRE LACY Delfino Encounter Template Text not used by [place] Assessments - Encounter Diagnoses This section includes the primary and secondary diagnoses documented for the Encounter. Date/Time Primary/Secondary Diagnosis Diagnosis Name Provider Source Oct 07, 2024 05:43 PM PRIMARY Other spondylosis with radiculopathy, lumbar region [facility] Plan of Treatment: Future Appointments (+ 6 [...] Appointment Type Appointme nt Facility Name Sep 13, 2024 10:00 AM AMBULATORY - NONE [facility] Oct 01, 2024 09:00 AM AMBULATORY - SURGERY [facility] Oct 10, 2024 10:00 AM AMBULATORY - REHAB [facility] Oct 30, 2024 11:00 AM AMBULATORY - NONE [facility] Nov 06, 2024 03:00 PM AMBULATORY - SURGERY [facility] Nov 07, 2024 10:00 AM AMBULATORY - REHAB [facility] Dec 13, 2024 10:00 AM AMBULATORY - NONE [facility] Dec 19, 2024 08:30 AM AMB[facility]ORY - NONE [facility] Dec 26, 2024 11:00 AM [facility] - NONE [facility] Feb 04, 2025 08:00 AM AMBULATORY - NONE [facility] Feb 05, 2025 09:30 AM AMBULATORY - SURGERY [facility] Social History: Smoking Status (Most current) [...] 21, 2020 ADVANCE DIRECTIVE DISCUSSION [facility] Mar 29, 2018 ADVANCE DIRECTIVE DISCUSSION [facility] Encounter Notes: All associated encounter notes This section contains the clinical notes associated to the Encounter. Date/Time Encounter Note(s) Provider Source Sep 12, 2024 10:26 AM PHYSICAL THERAPY C ONSULT: LOCAL TITLE: PM&RS PHYSICAL THERAPY CONSULTATION (C) STANDARD TITLE: PHYSICAL THERAPY CONSULT DATE OF NOTE: SEP 12, 2024@10:26 ENTRY DATE: SEP 12, 2024@10:26:28 AUTHOR: EMRE LACY COSIGNER: URGENCY: STATUS: COMPLETED PM&RS PHYSICAL THERAPY EVALUATION Location: [facility] Outpatient Physical Therapy Department (F2F) Date; 09/12/24 Service Connection: No Referring Service: NAMITA BASS -Lumbar spinal stenosis -R LE pain and weakness Diagnosis: 74 yo CM referred to Outpatient Physical Therapy with chronic lumbar spinal stenosis. Consult generated for Outpatient PT evaluation and treatment, recommendations for HEP. Dx Code; Spinal stenosis, lumbar region without neurogenic claudication(ICD-10- CM M48.061) PT dx; Same PMH: Exposure to potentially hazardous substance Bilateral carpal tunnel syndrome Lumbar spondylosis Diabetic peripheral neuropathy associated with type 2 diabetes mellitus Venous insufficiency of leg Diplopia Screening for Malignant Neoplasms of colon GERD HYPERLIPIDEMIA NEC/NOS Sleep Apnea Hyperlipidemia Dermatophytosis of nail Obesity Diabetes mellitus Essential hypertension Impotence of organic origin Imaging; Yes (Reviewed with client/family) T12-LI: No significant disc/facet abnormality, spinal stenosis, or foraminal stenosis. L1-L2: No significant disc/facet abnormality, spinal stenosis, or foraminal stenosis. L2-L3: Mild disc space narrowing and disc desiccation. Mild to moderate diffuse disc/osteophyte complex. Ligament flavum hypertrophy and facet osteoarthropathy. Moderate trefoil narrowing of the central canal. No right, moderate left foraminal stenosis L3-L4: Disc space narrowing and disc desiccation. Moderate diffuse disc/osteophyte complex. Ligamentum flavum hypertrophy and facet osteophytes arthropathy. Mild trefoil narrowing of the central canal. No right, moderate left foraminal stenosis L4-L5: Disc desiccation. Mild diffuse disc bulge. Segmental flavum hypertrophy and facet osteoarthropathy. No central canal or foraminal stenosis L5-S1: No significant disc/facet abnormality, spinal stenosis, or foraminal stenosis. IMPRESSION: Degenerative changes resulting in central and foraminal stenosis at L2- L3 and L3-L4 detailed above Date of Consult: 08/15/24 Initial assessment date: 09/12/24 S: 74 yo who arrives as scheduled for Outpatient PT consultation. He reports chronic (2018) and worsening (over past three months) of low back pain and progression into the right leg. Right inner thigh ache is constant in nature but remaining symptoms are intermittent. Worsened with standing and walking durations/distances. Eased with sitting (recliner chair) in a lumbar flexion position. Has attempted Aquatic Therapy in the past which was very helpful for this condition. Acupuncture has helped (Temporary x 15 mins) also. Finds relief with walking in large box stores by using a shopping cart for a lumbar flexed ambulation position (Shopping cart sign). Uses standard cane for all ambulatory needs x 3 years without worsening gait patterns. He denies any recent falls but will experience episodes of right leg numbness which resolves with returning to sitting positions. He does endorse R LE weakness at times and is agreeable to the following PT recommendations and clinical exam. Present symptoms; 2-3/10 center of lumbar spine Ache 2-3/10 R lateralization A 3/10 R inner thigh Ache 1/10 R calf Numbness Intermittent; Center R lateralization L lateralization R calf Constant; R inner thigh PATIENT ASSESSMENT/EVALUATION O: Cardiovascular screen; Held Gait; Mod I with standard cane WBAT BL LE. Wide RACHEAL noted. Lumbar ROM; Extension; Max obstruction Flexion; Mod obstruction Posture correction; N/a MMT; R L Hip flexor 4+/5 5/5 Quad 4/5 5/5 Hams 4+/5 5/5 Hip abd 4/5 5/5 Hip add 4+/5 5/5 Ankle DF 5/5 5/5 EHL 5/5 5/5 Sensation; Equal L2-S1 BL dermatomes to light touch sensation Dural Testing; R L Slump (-) (-) Transfers; Sit/stand; Mod I Education; -Lumbar spinal stenosis pathology and progressions -Use of standard cane for all ambulatory needs. (Safety) -Focus on seated repetitive movements for LE's. 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 Final levels; 0.5/10 center of lumbar spine Ache NEW 1/10 L lateralization A 0/10 R lateralization A 0/10 R inner thigh Ache 0/10 R calf Numbness Outcome Measures; MADELEINE; Held Clinical Activities; (Issued in written form) 1. Seated Lumbar flexion ROM; 15 reps, hold 5-10 sec. 2-3x/day -Included exhale overpressure progression -Included cervical flexion first progression 2. Supine LTR; 10 reps, hold end range x 10 seconds 3x/day. Next visit; Introduce Seated Stepper Update lumbar flexion/rotation response Educate for self-management Consider proximal hip strengthening (R LE weakness) A: 74 yo presenting to Outpatient Physical Therapy with s/s's consistent with lumbar spinal stenosis with R LE weakness. Stable gait pattern using standard cane and he is responsive to repetitive lumbar flexion self-stretching. With above PT interventions, he was able to abolish his right calf, thigh (Was reported as constant previously) and right lateralization symptoms. LONG discussion regarding need for better daily self-management following written HEP above. He is agreeable to a 1-2 visit trial of Outpatient PT activities. Pt goal; I want to see if the right leg will calm down and I could walk a bit further. THERAPIST'S GOALS: STG; 1-2 visits 1. Client will demonstrate daily efforts with lumbar flexion/rotation bias HEP. 2. demonstrate improved R proximal hip strength levels. 3. ability to self-manage via HEP. 4. demonstrate a +3 GROC score. 5. report 25% improvement in ambulation tolerance. Freq; Trial of Outpatient PT care 1-2 visits. RTC visit scheduled for 30 days. Evaluation Complexity; PERSONAL FACTORS & COMORBIDITIES: 2+ BODY STRUCTURES & FUNCTIONS, ACTIVITY LIMITATIONS, &/OR PARTICIPATION RESTRICTIONS: 1-2 CLINICAL PRESENTATION: Evolving EVALUATION COMPLEXITY: Moderate PT Prognosis; Fair-Good (With compliance) -Clear directional preference to lumbar flexion/rotation -Confirmed multiple level (2) lumbar spinal stenosis P: POC discussed with pt who is in agreement. Appreciate this consult. /vira/ EMRE LACY PHYSICAL THERAPIST Signed: 09/12/2024 14:29 EMRE LACY OC
--- OUTSIDE RECORDS SUMMARY | 2024-09-13 06:00 | XMS_ITS | Encounter Summary ---
Author Name [facility] [place] [facility] [facility] [place] Address [address] [place] [address] Care Team Providers Care Azure Developer Name Role Phone NAMITA BASS Primary Care [...] OF SERVICE VERIZ ON Sep 05, 2019 [id number] [phone] LOGAN GARCIA PATIENT [employer] ([id number]) PRESCRIPT ION VERIZ ON Sep 05, 2017 [id number] [phone] LOGAN GARCIA PATIENT MEDICARE (WNR) MEDICARE (M) PART A Aug 05, 2013 PART A [id number] LOGAN GARCIA JIANG PATIENT MEDICARE (WNR) MEDICARE (M) PART A Aug 05, 2013 PART A [id number] [phone] LOGAN GARCIA JIANG PATIENT MEDICARE (WNR) MEDICARE (M) PART A Aug 05, 2013 PART A [id number] LOGAN GARCIA JIANG PATIENT MEDICARE (WNR) MEDICARE (M) PART A Aug 05, 2013 PART A [id number] LOGAN GARCIA PATIENT MEDICARE PART D (WNR) PRESCRIPT ION PART D Aug 05, 2013 PART D [id number] LOGAN GARCIA PATIENT MEDICARE PART D (WNR) PRESCRIPT ION PART D Aug 05, 2013 PART D [id number] LOGAN GARCIA PATIENT [facility] STEPHANIE ON Sep 05, 2016 [id number] [phone] LOGAN GARCIA PATIENT Selected Encounter This section includes the information on record at [place] for the Encounter. Date/Time Encounter Type Encounter Description Reason Provider Source Sep 13, 2024 10:00 AM OFF/OP CNSLTJ NEW/EST MOD [facility] ICD-10-CM M48.062 Spinal stenosis, lumbar region with neurogenic claudication MITZI CHAVEZ Delfino Encounter Template Text not used by [place] Assessments - Encounter Diagnoses This section includes the primary and secondary diagnoses documented for the Encounter. Date/Time Primary/Secondary Diagnosis Diagnosis Name Provider Source Sep 13, 2024 10:36 AM PRIMARY Spinal stenosis, lumbar region with neurogenic claudication MITZI CHAVEZ [facility] Sep 13, 2024 10:36 AM SECONDARY Radiculopathy, lumbar region MITZI CHAVEZ [facility] Sep 13, 2024 10:36 AM SECONDARY Type 2 diabetes mellitus with diabetic polyneuropathy MITZI CHAVEZ [facility] Plan of Treatment: Future Appointments (+ 6 months) and Future Tests (+/- 45 days) The Plan of Treatment section includes future care activities for the patient [facility] [place] [facility] This section includes future appointments and future orders which are active, pending or scheduled. Future Appointments This section includes appointments that were scheduled to occur 6 months from the date of the Encounter, up to a maximum of 20 appointments. The data comes from all [place] treatment facilities. Appointment Date/Time Appointment Type Appointme nt Facility Name Oct 01, 2024 09:00 AM AMBULATORY - SURGERY KARENA YBARRA [facility] Oct 10, 2024 10:00 AM AMBULATORY - REHAB [facility]IN [facility] Oct 30, 2024 11:00 AM AMBULATORY - NONE [facility] Nov 06, 2024 03:00 PM AMBULATORY - SURGERY [facility] Nov 07, 2024 10:00 AM AMBULATORY - REHAB MEDICIN [facility] Dec 13, 2024 10:00 AM AMBULATORY - NONE [facility] Dec 19, 2024 08:30 AM AMBULATORY - NONE [facility] Dec 26, 2024 11:00 AM AMBULATORY - NONE [facility] Feb 04, 2025 08:00 AM AMBULATORY - NONE [facility] Feb 05, 2025 09:30 AM AMBULATORY - SURGERY [facility] Social History: Smoking Status (Most current) and Tobacco Use (All prior to encounter date) This section includes the most current, and the historical, smoking and tobacco- related health factors from the [facility] facility where the Encounter took place. Current Smoking Status This section includes the most current smoking, or tobacco-related health factor, from the [place] facility where the Encounter took place. Date/Time Current Smoking Status Comment Twan villaseñor Mar 30, 2010 10:46 AM QUIT TOBACCO >7 YEARS AGO [facility] Advance Directives: All historical and current Section Date Range: From patient's date of to the date document was created. This section includes ALL of a patient's completed or amended VA Advance and Rescinded Directives. The entries below indicate that a directive exists for the patient, but an actual copy is not included with this document. The data comes from all [place] facilities. Date Advance Directives Provider Source May 21, 2020 ADVANCE DIRECTIVE DISCUSSION DEEP SAGASTUME ZORA Mar 29, 2018 ADVANCE DIRECTIVE DISCUSSION DEEP SAGASTUME [facility] Encounter Notes: All associated encounter notes This section contains the clinical notes associated to the Encounter. Date/Time Encounter Note(s) Provider Source Sep 13, 2024 10:37 AM ACCOUNTING OF DISC LOSURES NOTE: LOCAL TITLE: STATE PRESCRIPTION DRUG MONITORING PROGRAM STANDARD TITLE: ACCOUNTING OF DISCLOSURES NOTE DATE OF NOTE: SEP 13, 2024@10:37:08 ENTRY DATE: SEP 13, 2024@10:37:08 AUTHOR: WARREN CHAVEZ EXP COSIGNER: URGENCY: STATUS: COMPLETED This PDMP query was submitted by Warren Chavez. The clinical justification for this PDMP query is to review controlled substances prescribed outside of the [facility], and any additional information that may become available, as an important component of standard clinical care, and in accordance with [facility] policy. Patient information [facility] with the [facility] [place]. Prescription(s) filled outside the [place] in the last 90 days are noted. However, they do not raise significant safety concerns and do not influence the treatment plan at this time. /vira/ WARREN CHAVEZ PHYSICIAN Signed: 09/13/2024 10:37 WARREN CHAVEZ [facility] Sep 13, 2024 10:19 AM PAIN CONSULT: LOCAL TITLE: PAIN MANAGEMENT TELEMEDICINE CONSULTATION NOTE (C) STANDARD TITLE: PAIN CONSULT DATE OF NOTE: SEP 13, 2024@10:19 ENTRY DATE: SEP 13, 2024@10:19:15 AUTHOR: WARREN CHAVEZ EXP COSIGNER: URGENCY: STATUS: COMPLETED PAIN MANAGEMENT TELEMEDICINE CONSULTATION NOTE (C) Has ADDENDA Visit conducted through synchronous telehealth. [place]'s verbal consent obtained. Location and emergency number confirmed. Environment surveyed, and all participants identified. Virtual conference room locked. Consult: Referred by NAMITA BASS Chief Complaint: Right leg pain HPI: 74-year-old gentleman with history of diabetes, peripheral neuropathy, spinal stenosis presenting to pain management clinic via [facility] today with worsening right lower extremity pain. Patient has a long history of pain into the right lower extremity. He states that he has been dealing with this issue since at least 2018. Pain wraps around to the inner portion of the right thigh. Not much back pain. He has seen pain management here in the past, but has not been seen in several years. Treatments have included Lyrica 150 mg twice per day, aqua therapy, acupuncture, and recently started physical therapy. The patient notes that the Lyrica is of some benefit, aqua therapy was quite helpful, and the one session that he has had so far with physical therapy has been helpful. Acupuncture was helpful, but only with very short-lived relief after each treatment. Standing and walking exacerbate the pain. Pain is described as deep and aching. The patient has to sit to relieve his symptoms. He states that he can get to the back of a store but sometimes has difficulty getting back to the front. Leaning on a shopping cart does help with the pain and allows the patient to walk further. He uses a cane and sometimes a rollator. Denies weakness in the lower extremities, however his right leg feels heavy when he stands or walks for more than 100 feet. Denies falling or stumbling. Pain Medications: Opioids: None NSAIDS: None Anticonvulsants: Pregabalin, helpful Antidepressants: None Others: PMedHx: ACTIVE PROBLEM Exposure to Potentially Hazardous 12/26/2023 Substance ([facility] [id number]) Bilateral carpal tunnel syndrome 07/07/2021 Lumbar spondylosis 04/07/2021 Diabetic peripheral neuropathy 05/02/2017 associated with type 2 diabetes mellitus Venous insufficiency of leg 03/15/2016 Diplopia 07/24/2015 Screening for Malignant Neoplasms of 03/10/2022 colon GERD * (ICD-9-CM 530.81) 09/08/2010 HYPERLIPIDEMIA NEC/NOS 03/30/2010 Sleep Apnea (ICD-9-CM 780.57/786.09) 10/23/2008 Hyperlipidemia (SNOMED CT 73471139) 07/24/2015 Dermatophytosis of nail 07/24/2015 Obesity (SNOMED CT 841355544) 04/21/2018 Diabetes mellitus (SNOMED CT 90711860) 06/18/2015 Essential hypertension (SNOMED CT 07/24/2015 52099626) 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 PSurgHx: No history of lumbar surgery SocHx: no smoking, occ ETOH use, no illicit drug use, Retired. Meds: Active Outpatient Medications (including Supplies): Active Outpatient Medications Status ======= 1) ACCU-CHEK GUIDE (GLUCOSE) TEST STRIP USE 1 STRIP ACTIVE TESTING TWICE A DAY BEFORE MEALS (BREAKFAST & DINNER) FOR BLOOD SUGAR 2) ALCOHOL PREP PAD USE PAD(S) SUPPLY ITEM DIRECTED ACTIVE FOR PERSONAL CLEANSING 3) ATORVASTATIN CALCIUM 80MG TAB TAKE ONE TABLET BY ACTIVE MOUTH AT BEDTIME 4) CHLORTHALIDONE 25MG TAB TAKE ONE TABLET BY MOUTH ACTIVE EVERY DAY (WITH FOOD) 5) [id number]/[id number] 24HR TAB TAKE 2 ACTIVE (S) TABLETS BY MOUTH EVERY MORNING 6) HYDROPHILIC (EQV EUCERIN) TOP CREAM APPLY A ACTIVE SUFFICIENT AMOUNT EXTERNALLY EVERY DAY NEEDED TO DRY SKIN 7) ICOSAPENT ETHYL 1GM CAP TAKE TWO CAPSULES BY MOUTH ACTIVE (S) TWICE A DAY WITH MEALS *SWALLOW CAPSULES WHOLE* 8) INSULIN SYRINGE 1ML 31G 6MM USE SYRINGE SUPPLY ITEM ACTIVE TWICE A DAY FOR INJECTION OF MEDICATION 9) INSULIN,GLARGINE-YFGN 100UNIT/ML INJ INJECT 60 UNITS ACTIVE SUBCUTANEOUSLY TWICE A DAY 10) LANCET,SOFTCLIX USE LANCET(S) TESTING DIRECTED FOR ACTIVE BLOOD SUGAR TESTING 11) LIDOCAINE 5% PATCH APPLY THREE PATCHES TO CLEAN DRY ACTIVE SKIN EVERY DAY FOR BACK PAIN . PATCH SHOULD REMAIN ON SKIN NO LONGER THAN 12 HOURS IN ANY 24 HOUR PERIOD. 12) LISINOPRIL 40MG TAB TAKE ONE TABLET BY MOUTH EVERY ACTIVE (S) DAY 13) METOPROLOL SUCCINATE 100MG SA TAB TAKE ONE TABLET BY ACTIVE (S) MOUTH EVERY DAY FOR HIGH BLOOD PRESSURE 14) OMEPRAZOLE 20MG EC CAP TAKE ONE CAPSULE BY MOUTH ACTIVE (S) EVERY MORNING, ON AN EMPTY STOMACH 15) PREGABALIN 150MG ORAL CAP TAKE ONE CAPSULE BY MOUTH ACTIVE TWICE A DAY FOR NERVE PAIN 16) PSYLLIUM SUGAR FREE STIR 1 ROUNDED ACTIVE TABLESPOONFUL IN 8 OUNCES OF WATER OR OTHER LIQUID BY MOUTH EVERY DAY NEEDED FOR REGULAR BOWELS 17) SEMAGLUTIDE 2MG/0.75ML INJ PEN 3ML INJECT 2MG ACTIVE SUBCUTANEOUSLY EVERY WEEK FOR TYPE 2 DIABETES MELLITUS FOR DIABETES AND BLOOD SUGAR CONTROL. KEEP REFRIGERATED, HOWEVER, MAY BE KEPT AT ROOM TEMPERATURE FOR UP TO 56 DAYS 18) TAMSULOSIN HCL 0.4MG CAP TAKE ONE CAPSULE BY MOUTH AT ACTIVE BEDTIME FOR ENLARGED PROSTATE Active Non-VA Medications Status ======= 1) Non-VA ASCORBIC ACID 500MG TAB 1000MG MOUTH EVERY DAY ACTIVE 2) Non-VA ASPIRIN 325MG EC TAB 325MG MOUTH EVERY DAY ACTIVE 3) Non-VA CHOLECALCIF 25MCG (D3-1,000UNIT) TAB 2000UNIT ACTIVE MOUTH EVERY DAY 4) Non-VA CYANOCOBALAMIN 1000MCG TAB 1000MCG MOUTH EVERY ACTIVE DAY 5) Non-VA GARLIC CAP/TAB 1 CAP/TAB MOUTH EVERY DAY ACTIVE 6) Non-VA INSULIN,ASPART(EQV-NOVLG)100UN/ML FLXPEN 5 ACTIVE UNITS SUBCUTANEOUSLY WITH BREAKFAST 7) Non-VA VITAMIN E 180MG (400UNIT) CAP 400UNT MOUTH ACTIVE EVERY DAY 25 Total Medications Allergies: Allergies/ADR: PENICILLIN Review of Systems (pertinent listed below): Pertinent positives noted in the HPI - CONSTITUTIONAL: Denies weight loss, fever and chills - HEENT: Denies changes in vision and hearing, no difficulty swallowing - RESPIRATORY: Denies shortness of breath and cough - CV: Denies palpitations and chest pain - GI: Denies abdominal pain, nausea, vomiting and diarrhea. Denies blood in stool - : Denies dysuria and urinary frequency. Denies hematuria - MSK: per HPI. - SKIN: Denies rash and pruritus - NEUROLOGICAL: Denies headache and syncope; - PSYCHIATRIC: Denies recent changes in mood. PE: GEN: Well developed, well nourished and in no acute distress Pulm: no gasping or SOB, no accessory muscle use. Musculoskeletal: No pain when patient crosses right leg over left. Minimal discomfort with active lumbar range of motion. Neuro Exam: Unable to perform via [facility]. Denies weakness. Review of physical eval exam: MMT; R L Hip flexor 4+/5 5/5 Quad 4/5 5/5 Hams 4+/5 5/5 Hip abd 4/5 5/5 Hip add 4+/5 5/5 Ankle DF 5/5 5/5 EHL 5/5 5/5 LABS: BA%: 0.6 (06/19/24 09:16) BLOOD BASO #: 0.0 (06/19/24 09:16) BLOOD EOSINO#: 0.2 (06/19/24 09:16) BLOOD EOSINOPHIL3.0 (06/19/24 09:16) BLOOD HCT: 46.8 (06/19/24 09:16) BLOOD HGB: 15.4 (06/19/24 09:16) BLOOD IMMGRAN: 0.1 (05/04/18 08:05) BLOOD LY #: 1.8 (06/19/24 09:16) BLOOD LYMPHS%: 32.6 (06/19/24 09:16) BLOOD MCH: 29.8 (06/19/24 09:16) BLOOD MCHC: 33.0 (06/19/24 09:16) BLOOD MCV: 90.3 (06/19/24 09:16) BLOOD MONO #: 0.3 (06/19/24 09:16) BLOOD MONOS: 5.8 (06/19/24 09:16) BLOOD MPV: 10.1 (06/19/24 09:16) BLOOD NEUT. %: 58.0 (06/19/24 09:16) BLOOD NEUTRO#: 3.3 (06/19/24 09:16) BLOOD NRBC: 0.1 (06/19/24 09:16) BLOOD PLT: 101 (06/19/24 09:16) BLOOD RBC: 5.18 (06/19/24 09:16) BLOOD RDW: 15.6 (06/19/24 09:16) BLOOD WBC: 5.7 (06/19/24 09:16) BLOOD 09/13/2024 10:31 CHEM 10 SLT - Lab Tests Selected Collection DT Specimen Test Name Result Units Ref Range 06/19/2024 09:16 PLASMA ALBUMIN 3.8 g/dL 3.2 - 4.6 06/19/2024 09:16 PLASMA BUN 18 mg/dL 8.4 - 25.7 06/19/2024 09:16 PLASMA CALCIUM 8.9 mg/dL 8.8 - 10.0 06/19/2024 09:16 PLASMA CREATININE 1.3 H mg/dL 0.72 - 1.25 06/19/2024 09:16 PLASMA CO2 24 mmol/L 23 - 31 06/19/2024 09:16 PLASMA GLUCOSE 116 H mg/dL 82 - 115 Comment: DLDLREF RANGE: NEAR OR ABOVE OPTIMAL: 100-129 mg/dL BORDERLINE Comment: DLDLHIGH: 130-159 mg/dL HIGH: 160-189 mg/dL VERY HIGH: >=190 Comment: TRIG REF RANGE: BORDERLINE HIGH: 150-199 mg/dL HIGH: 200-499 mg/dL Comment: TRIG VERY HIGH: >=500 mg/dL Comment: CREA eGFR was calculated using the CKD-EPI 2020 equation. Comment: CHOL REF RANGE: BORDERLINE HIGH: 200-239 mg/dL HIGH: >=240 mg/dL 06/07/2023 08:20 PLASMA PHOSPHORUS 3.5 mg/dL 2.5 - 4.9 Comment: CREATININE eGFR was calculated using the CKD-EPI 2020 equation. Comment: TRIGLYCERIDE REF RANGE: NORMAL <150 mg/dL BORDERLINE HIGH: 150-199 Comment: TRIGLYCERIDE mg/dL HIGH: 200-499 mg/dL VERY HIGH: >=500 mg/dL 06/19/2024 09:16 PLASMA SODIUM 140 mmol/L 136 - 145 06/19/2024 09:16 PLASMA CHLORIDE 106 mmol/L 98 - 107 06/19/2024 09:16 PLASMA POTASSIUM 4.3 mmol/L 3.5 - 5.1 06/19/2024 09:16 PLASMA ANION GAP 14.3 mmol/L 06/19/2024 09:16 PLASMA EGFR (CALCULATED) 57.0 mL/min Comment: DLDLREF RANGE: NEAR OR ABOVE OPTIMAL: 100-129 mg/dL BORDERLINE Comment: DLDLHIGH: 130-159 mg/dL HIGH: 160-189 mg/dL VERY HIGH: >=190 Comment: TRIG REF RANGE: BORDERLINE HIGH: 150-199 mg/dL HIGH: 200-499 mg/dL Comment: TRIG VERY HIGH: >=500 mg/dL Comment: CREA eGFR was calculated using the CKD-EPI 2020 equation. Comment: CHOL REF RANGE: BORDERLINE HIGH: 200-239 mg/dL HIGH: >=240 mg/dL Diagnostic Tests: MRI lumbar spine 07/17/2024 personally reviewed: Moderate stenosis at L2-3 and L3-4. Report:Imaging; Yes (Reviewed with client/family) T12-LI: No significant [...] at L2- L3 and L3-L4 detailed above A/P: 74-year-old gentleman with right lower extremity symptoms due to 2 spinal stenosis with neurogenic claudication and lumbar radiculopathy. Also with peripheral diabetic neuropathy. The patient and I discussed his condition and treatment options. We discussed the option of a right L2/3 and L3/4 transforaminal epidural steroid injection to address his pain. We discussed the importance of continuing physical therapy and home exercise program. Risks, benefits, and alternatives were reviewed. Recommend the patient continue Lyrica 150 mg twice daily. PDMP was reviewed and is appropriate. The patient would like to schedule the transforaminal epidural steroid injection for about 6 weeks from now. We will see how his symptoms respond to ongoing physical therapy in the meanwhile. If pain improves to the point where the patient is satisfied with the degree of relief he is experiencing the patient will cancel the epidural steroid injection. Patient was advised to call with any questions or concerns in the meanwhile. Patient agrees with plan of care. /vira/ WARREN CHAVEZ PHYSICIAN Signed: 09/13/2024 10:36 Receipt Acknowledged By: 09/13/2024 14:13 /vira/ ALFRED KATE REGISTERED NURSE 09/13/2024 ADDENDUM STATUS: COMPLETED Pt scheduled for a TFESI with Dr. Chavez on 10/30/24 at 1100. Pre-procedure instructions reviewed with patient who verbalizes understanding. Patient will arrive 30 minutes prior to procedure on 3A with a concrete truck driver. Pt may take the van if he cannot find a concrete truck driver. Patient denies PPM/AICD and any recent infections or changes to medical history. RTC placed and SP updated. Pt is a diabetic and will check BS to ensure it is not >200 and will alert [facility] if it is. Pt will hold ASA 325mg and all supplements (including Garlic ) for 1 week prior to procedure. Pt will call [facility] to cancel appt if pain well controlled after starting PT regimen. /vira/ ALFRED KATE REGISTERED NURSE Signed: 09/13/2024 14:24 WARREN CHAVEZ [facility]
--- OUTSIDE RECORDS SUMMARY | 2024-10-01 05:00 | XMS_ITS | Encounter Summary ---
Author Name [facility] [place] Address [address] [place] [address] Care Team Providers Care Size Marker Name Role Phone NAMITA BASS Primary Care [...] OF SERVICE VERIZ ON Sep 05, 2019 [id number] [phone] LOGAN GARCIA PATIENT EXPRESS SCRIPTS ([id number]) PRESCRIPT ION VERIZ ON Sep 05, 2017 [id number] LOGAN GARCIA PATIENT MEDICARE (WNR) MEDICARE (M) PART A Aug 05, 2013 PART A [id number] [phone] LOGAN GARCIA JIANG PATIENT MEDICARE (WNR) MEDICARE (M) PART A Aug 05, 2013 PART A [id number] LOGAN GARCIA JIANG PATIENT MEDICARE (WNR) MEDICARE (M) PART A Aug 05, 2013 PART A [id number] [phone] LOGAN GARCIA JIANG PATIENT MEDICARE (WNR) MEDICARE (M) PART A Aug 05, 2013 PART A [id number] LOGAN GARCIA PATIENT MEDICARE PART D (WNR) PRESCRIPT ION PART D Aug 05, 2013 PART D [id number] LOGAN GARCIA PATIENT MEDICARE PART D (WNR) PRESCRIPT ION PART D Aug 05, 2013 PART D [id number] LOGAN GARCIA PATIENT [facility] RETIREE STEPHANIE ON Sep 05, 2016 [id number] [phone] LOGAN GARCIA PATIENT Selected Encounter This section includes the information on record at [place] for the Encounter. Date/Time Encounter Type Encounter Description Reason Provider Source Oct 01, 2024 09:00 AM COMPRE OPH EXAM EST PT 1/> OPTOMETRY ICD-10-CM E11.8 Type 2 diabetes mellitus with unspecified complications MAG JANE Delfino Encounter Template Text not used by [place] Assessments - Encounter Diagnoses This section includes the primary and secondary diagnoses documented for the Encounter. Date/Time Primary/Secondary Diagnosis Diagnosis Name Provider Source Oct 01, 2024 09:39 AM PRIMARY Type 2 diabetes mellitus with unspecified complications [facility] Oct 01, 2024 09:39 AM SECONDARY Age-related nuclear cataract, bilateral [facility] Oct 01, 2024 09:39 AM SECONDARY Presbyopia [facility] Oct 01, 2024 09:39 AM SECONDARY Regular astigmatism, bilateral [facility] Plan of Treatment: Future Appointments (+ 6 months) and Future Tests (+/- 45 days) The Plan of Treatment section includes future care activities for the patient from all [place] treatmentfacilities. This section includes future appointments and future orders which are active, pending or scheduled. Future Appointments This section includes appointments that were scheduled to occur 6 months from the date of the Encounter, up to a maximum of 20 appointments. The data comes from all [place] treatment facilities. Appointment Date/Time Appointment Type Appointme nt Facility Name Oct 10, 2024 10:00 AM AMBULATORY - REHAB MEDICIN E [facility] Oct 30, 2024 11:00 AM AMBULATORY - NONE [facility] Nov 06, 2024 03:00 PM AMBULATORY - SURGERY [facility] Nov 07, 2024 10:00 AM AMBULATORY - REHAB MEDICIN E [facility] Dec 13, 2024 10:00 AM [facility] Dec 19, 2024 08:30 AM [facility]ORY - NONE [facility] Dec 26, 2024 11:00 AM AMBULATORY - NONE [facility] Feb 04, 2025 08:00 AM [facility] Feb 05, 2025 09:30 AM AMBULATORY - SURGERY [facility] Lab Results: +/- 30 days of the encounter This section includes the Chemistry and Hematology Lab Results on record with [place] for the patient. Radiology Reports and Pathology Reports are provided separately, in subsequent sections. Lab Results This section contains the Chemistry/Hematology Results that were resulted 30 days before or 30 daysafter the date of the Encounter. Date/Time Source Result Type Result - Unit Interpretation Reference Range Specimen Type Comment Oct 30, 2024 09:18 AM [facility] POC GLUCOSE BLOOD Specimen Type: BLOOD No comment entered. Ordering Provider: NAMITA BASS Report Released Date/Time: Oct 30, 2024 09:18 AM Reporting Lab: [facility] [address] [facility] [address] Performing Lab: [facility] [id number] [place] [id number] POC GLUCOSE 139 mg/dL H 74-106 Social History: Smoking Status (Most current) and Tobacco Use (All prior to encounter date) This section includes the most current, and the historical, smoking and tobacco- related health factors from the [place] facility where the Encounter took place. Current Smoking Status This section includes the most current smoking, or tobacco-related health factor, from the [place] facility where the Encounter took place. Date/Time Current Smoking Status Comment Facil ity Jun 26, 2024 09:30 AM VA-TOBACCO FORMER USER [facility] Tobacco Use History This section includes a history of the smoking, or tobacco-related health factors, that were collected on or before the date of the Encounter. The data comes from the [place] facility where the Encounter took place. Date/Time Smoking Status/Tobacco Use Comment F acility Jun 26, 2024 09:30 AM VA-TOBACCO QUIT 15 YRS OR MORE [facility] Jun 14, 2023 09:30 AM VA-TOBACCO FORMER USER [facility] Jun 14, 2023 09:30 AM VA-TOBACCO QUIT [...] this document. The data comes from all [place] facilities. Date Advance Directives Provider Source May 21, 2020 ADVANCE DIRECTIVE DISCUSSION ZHANNA SAGASTUMENeeru [facility] Mar 29, 2018 ADVANCE DIRECTIVE DISCUSSION ZHANNA SAGASTUMENeeru RYAN SUSIEADRIAN CB Encounter Notes: All associated encounter notes This section contains the clinical notes associated to the Encounter. 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 - resolved Ocular Medications: None Family Ocular History: ARMD/mother (+) Medical History: Exposure to potentially hazardous substance 12/26/2023 Bilateral carpal tunnel syndrome 07/07/2021 Lumbar spondylosis 04/07/2021 Diabetic peripheral neuropathy associated with 05/02/2017 Venous insufficiency of leg 03/15/2016 Diplopia 07/24/2015 Screening for Malignant Neoplasms of colon 03/10/2022 GERD 09/08/2010 HYPERLIPIDEMIA NEC/NOS 03/30/2010 Sleep Apnea 10/23/2008 NAMITA BASS Hyperlipidemia 07/24/2015 NAMITA BASS Dermatophytosis of nail 07/24/2015 Obesity 04/21/2018 Diabetes mellitus 06/18/2015 KALEN- Essential hypertension) 07/24/2015 NAMITA BASS 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 NAMITA BASS Active Medications: Allergies: penicillin Current Rx: OD: -0.75 -0.50 X95 OS: +0.75 -1.00 X87 ADD: +1.50 VA: sRx OD: 20/30 PH: NI OS: 20/30 PH: 20/ 25+ EOMs: FULL OU PUPILS: ERRL -APD OU CF: FULL OU /vira/ CIRO MARTINEZ OPTOMETRY [employer] MAIL DRIVER Signed: 10/01/2024 09:00 /vira/ [place] [facility] SLIVER LAP MACHINE TENDER Cosigned: 10/01/2024 09:02 [facility] MARTINEZ [facility] Oct 01, 2024 08:55 AM OPTOMETRY OUTPATIE NT NOTE: LOCAL TITLE: OPTOMETRY OUTPATIENT CLINIC NOTE (T) STANDARD TITLE: OPTOMETRY OUTPATIENT NOTE DATE OF NOTE: OCT 01, 2024@08:55 ENTRY DATE: OCT 01, 2024@08:55:37 AUTHOR: [place] JANE EXP COSIGNER: URGENCY: STATUS: COMPLETED 74 yowm here today for CHERYLE Last Eye exam: Oct 03, 2023 VINES/OPT Dr Jane Chief Complaint: patient voices no visual complaints or concerns today Ocular History: (+) DM s DR OU (+) Cat OU (+) 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 Ocular Medications: None Family Ocular History: ARMD/mother (+) Medical History: Exposure to potentially hazardous substance 12/26/2023 Bilateral carpal tunnel syndrome 07/07/2021 Lumbar spondylosis 04/07/2021 Diabetic peripheral neuropathy associated with 05/02/2017 Venous insufficiency of leg 03/15/2016 Diplopia 07/24/2015 Screening for Malignant Neoplasms of colon 03/10/2022 GERD 09/08/2010 HYPERLIPIDEMIA NEC/NOS 03/30/2010 Sleep Apnea 10/23/2008 NAMITA BASS Hyperlipidemia 07/24/2015 NAMITA BASS Dermatophytosis of nail 07/24/2015 Obesity 04/21/2018 Diabetes mellitus 06/18/2015 KALEN- Essential hypertension) 07/24/2015 NAMITA BASS 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 NAMITA BASS Active Medications: Active Outpatient Medications Status ======= 1) ACCU-CHEK [...] MOUTH ACTIVE EVERY DAY (WITH FOOD) 5) [id number]/[id number] 24HR TAB TAKE 2 ACTIVE (S) TABLETS [...] ACTIVE EVERY MORNING, ON AN EMPTY STOMACH 15) PREGABALIN 150MG ORAL CAP TAKE ONE CAPSULE BY MOUTH ACTIVE TWICE A DAY FOR NERVE PAIN 16) PSYLLIUM SF ORAL PWD STIR 1 ROUNDED TABLESPOONFUL IN ACTIVE 8 OUNCES OF WATER OR OTHER LIQUID [...] (400UNIT) CAP 400UNT MOUTH ACTIVE EVERY DAY Allergies: penicillin Current Rx: OD: -0.75 -0.50 X095 OS: +0.75 -1.00 X087 ADD: +1.50 VA: cRx OD: 20/30 PH: NI OS: 20/30 PH: 20/25+ EOMs: FULL OU PUPILS: ERRL -APD OU CF: FULL OU Refraction: OD: -1.25 -0.50 x102 VA: 20/40-2 OS: +0.75 -1.00 x084 VA: 20/30 ADD: +2.25 - patient does not like bifocal Slit Lamp Exam: Lids and lashes: clear OU Conjunctiva: 1 injection and papillary rx OU Cornea: clear OU Anterior chamber: d/q OU Angles: 4 n/t OU Iris: clear, (-) austin OU Lens: OD: 2+ NS c central demetri changes OS: 2 NS c central demetri changes Obtained informed consent from patient for use of DPA's, educated patient about side effects. 1 gt. Fluress OU, 1 gt. 1.0% [place]. OU, 1 gt. 2.5 % Phenyl. OU @ 9:14 AM Tonometry (A): @ 9:14 AM OD/OS: (10/01/24) DFE: C/D: OD: 0.30/0.30 OS: 0.35/0.35 c temp sloping Posterior pole: clear OU, no CSME OU Vessels: normal course/caliber OU Vitreous: clear OU Periphery: (-) holes/tears 360 OU Assessment/Plan: 1. Regular astigmatism c presb OU. Rx released to VA. 2. h/o Sudden onset of vertical diplopia from microvascular incident to CN caused by DM, HTN and HLP - resolved. Monitor in 1 year c CHERYLE. RTC STAT c any increase in s/s. 3. Nuclear Cat OD>OS causing further decrease in vision, OU. Monitor for now but may need to consider CE. 4. DM s DR OU, no CSME OU; p/e on need to control BS/BP/lipids. Monitor 1 year c CHERYLE; RTC STAT c any changes in vision. RTC: 1 year CHERYLE /vira/ [place] JANE SLIVER LAP MACHINE TENDER Signed: 10/01/2024 09:39 [facility] JANE OC
--- OUTSIDE RECORDS SUMMARY | 2024-10-10 06:00 | XMS_ITS | Encounter Summary ---
Author Name [facility] [place] Organization [place] Address [address] [place] [address] Care Team Providers Care Tanning Drum Operator Name Role Phone NAMITA BASS Primary Care [...] Policy Wills's Name Patient's Relationship to Policy Iwlls [employer] POINT OF SERVICE VERIZ ON Sep 05, 2019 [id number] [phone] LOGAN GARCIA PATIENT EXPRESS SCRIPTS ([id number]) PRESCRIPT ION VERIZ ON Sep 05, 2017 [id number] LOGAN GARCIA PATIENT MEDICARE (WNR) MEDICARE (M) PART A Aug 05, 2013 PART A [id number] LOGAN GARCIA PATIENT MEDICARE (WNR) MEDICARE (M) PART A Aug 05, 2013 PART A [id number] LOGAN GARCIA PATIENT MEDICARE (WNR) MEDICARE (M) PART A Aug 05, 2013 PART A [id number] LOGAN GARCIA PATIENT MEDICARE (WNR) MEDICARE (M) PART A Aug 05, 2013 PART A [id number] LOGAN GARCIA PATIENT MEDICARE PART D (WNR) PRESCRIPT ION PART D Aug 05, 2013 PART D [id number] LOGAN GARCIA PATIENT MEDICARE PART D (WNR) PRESCRIPT ION PART D Aug 05, 2013 PART D [id number] LOGAN GARCIA PATIENT [facility] RETIREE STEPHANIE ON Sep 05, 2016 [id number] LOGAN GARCIA PATIENT Selected Encounter This section includes the information on record at [place] for the Encounter. Date/Time Encounter Type Encounter Description Reason Provider Source Oct 10, 2024 10:00 AM THERAPEUTIC EXERCISES PHYSICAL THERAPY ICD-10-CM M47.26 Other spondylosis with radiculopathy, lumbar region EMRE LACY IHDelfino Encounter Template Text not used by [place] Assessments - Encounter Diagnoses This section includes the primary and secondary diagnoses documented for the Encounter. Date/Time Primary/Secondary Diagnosis Diagnosis Name Provider Source Oct 31, 2024 07:45 PM PRIMARY Other spondylosis with radiculopathy, lumbar region [facility] Plan of Treatment: Future Appointments (+ 6 months) and Future Tests (+/- 45 days) The Plan of Treatment section includes future care activities for the patient from all [place] treatmentfacilities. This section includes future appointments and future orders which are active, pending or scheduled. Future Appointments This section includes appointments that were scheduled to occur 6 months from the date of the Encounter, up to a maximum of 20 appointments. The data comes from all [place] treatment facilities. Appointment Date/Time Appointment Type Appointme nt Facility Name Oct 30, 2024 11:00 AM AMBULATORY - NONE [facility] Nov 06, 2024 03:00 PM AMBULATORY - SURGERY [facility] Nov 07, 2024 10:00 AM AMBULATORY - REHAB MEDICIN E [facility] Dec 13, 2024 10:00 AM AMBULATORY - NONE [facility] Dec 19, 2024 08:30 AM AMBULATORY - NONE [facility] Dec 26, 2024 11:00 AM AMBULATORY - NONE [facility] Feb 04, 2025 08:00 AM AMBULATORY - NONE [facility] Feb 05, 2025 09:30 AM AMBULATORY - SURGERY [facility] Lab Results: +/- 30 days of the encounter This section includes the Chemistry and Hematology Lab Results on record with [place] for the patient. Radiology Reports and Pathology Reports are provided separately, in subsequent sections. Lab Results This section contains the Chemistry/Hematology Results that were resulted 30 days before or 30 daysafter the date of the Encounter. Date/Time Source Result Type Result - Unit Interpretation Reference Range Specimen Type Comment Oct 30, 2024 09:18 AM [facility] POC GLUCOSE BLOOD Specimen Type: BLOOD No comment entered. Ordering Provider: NAMITA BASS Report Released Date/Time: Oct 30, 2024 09:18 AM Reporting Lab: [facility] [id number] [place] [id number] Performing Lab: [address] [address] POC GLUCOSE 139 mg/dL H 74-106 Social History: Smoking Status (Most current) and Tobacco Use (All prior to encounter date) This section includes the most current, and the historical, smoking and tobacco- related health factors from the [place] facility where the Encounter took place. Current Smoking Status This section includes the most current smoking, or tobacco-related health factor, from the [place] facility where the Encounter took place. Date/Time Current Smoking Status Comment Facil ity Jun 26, 2024 09:30 AM VA-TOBACCO FORMER USER [facility] Tobacco Use History This section includes a history of the smoking, or tobacco-related health factors, that were collected on or before the date of the Encounter. The data comes from the [place] facility where the Encounter took place. Date/Time [...] 08, 2018 09:12 AM VA-TOBACCO FORMER USER [facility] Nov 08, 2018 09:12 AM VA-TOBACCO [...] this document. The data comes from all [place] facilities. Date Advance Directives Provider Source May 21, 2020 ADVANCE DIRECTIVE DISCUSSION MITESHDEEPADRIAN [facility] Mar 29, 2018 ADVANCE DIRECTIVE DISCUSSION MITESHDEEP SUSIEADRIAN [facility] Encounter Notes: All associated encounter notes This section contains the clinical notes associated to the Encounter. 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 I'd say about 10% better over the past month. The intensity of the leg and low back pain is less. Also, I notice it does not limit my activities around the house. He does admit to intermittent and infrequent HEP efforts. I did them for a while, then just fell off on doing them as often as you recommended. He is agreeable to the following clinical progressions and HEP review. Present symptoms; 10 center of lumbar spine Ache 2-3/10 R lateralization A 4/10 R inner thigh Ache 4/10 R calf Numbness Final levels; 1-2/10 center of lumbar spine Ache 0/10 R lateralization A 1-2/10 R inner thigh Ache 0/10 R calf Numbness Intermittent; Center R lateralization L lateralization R calf Constant; R inner thigh O: Gait; Mod I with standard cane. SCI Stepper; 1.0 resistance 10 mins Clinical Activities; (*=Reviewed again in clinic) *1. Seated Lumbar flexion ROM; 15 reps, hold 5-10 sec. 2-3x/day -Included exhale overpressure progression -Included cervical flexion first progression *2. Supine LTR; Difficult to do at home due to no firm mattress. Added; *3. Standing lumbar flexion ROM; Pt Education; Daily HEP recommendations Addition of standing lumbar flexion Need for repetitive seated stepper/cycle use 10-15 mins 2-3x/week Benefit from local gym access (stepper/cycle use) Peripheral symptom response to lumbar flexion activities. 30 mins Ther ex x 2 A: Infrequent, intermittent efforts with written HEP with 10% improvement in symptom intensity. Reviewed all HEP, encouraged more frequent self-management efforts and added standing lumbar flexion for further mobility gains. He is agreeable to one final PT intervention to assess his HEP frequency and R LE symptom response. All questions addressed. P: Extended PT POC x 1 final visit. RTC placed for 30 days. Update HEP efforts, R LE response. Update GROC/MADELEINE. Educate for self-management, intermediate accountant mobility interventions. /vira/ EMRE LACY PHYSICAL THERAPIST Signed: 10/10/2024 12:30 EMRE LACY OC
--- OUTSIDE RECORDS SUMMARY | 2024-10-12 13:54 | XMS_ITS ---
Author Name Auto Generated Organization OHIP Care Team Providers Care Geophysical Observer Name Role Phone Kaitlin Carrasco Attending Unavailable Romulo Russo Attending Unavailable ADAMARIS LOPEZ Attending Unavailable PROBLEMS No Problem Records Found PROCEDURES No Procedure Records Found RESULTS PATIENT LETTER [facility] Observed: 11/02/2024 9:39 AM Status: F Source: [facility] Patient Letter [facility] November 02, 2024 ZI GARCIA [address] [place] [address] : 1950 Dear Zi, This is a reminder that you are due for an appointment with [facility]. Please contact our office at [phone] to schedule an appointment at your earliest convenience. Thank you, [facility] ALLERGIES DATE TYPE / CODE NAME / CODE REACTION SEVERITY SOURCE /[id number](SNOMED CT) [facility] [id number] [facility] ENCOUNTERS ADMIT/DISCHARGE ACCOUNT NUMBER ADMITTING ENCOUNTER CLASS LOCATION SOURCE 10/12/2024/ 5 [id number] Ambulatory Building:[facility] 06/19/2024 [id number] [facility] 12/17/2021/ 2 [id number] Ambulatory [facility] DHBuilding:[facility] DHRoom: CD:[id number] [facility] PAYERS ENCOUNTER GUARANTOR PAYER SUBSCRIBER SOURCE 10/12/2024 ZI HUMPHREYB: [place], [place] [address]Xci: () Primary Insurance:[facility] ADMINISTRATIONPolicy Number: [id number] Date:2024-10-12 ZI HUMPHREYB: [id number] [place] [address] [facility] 06/19/2024 ZI MORA: JOSE MANUEL Sunshine: () Primary Insurance:GovernmentPolicy Number: [id number] Date:2021-10-22 ZI PARADA [facility] 12/17/2021 ZI MORA: JOSE MANUEL Sunshine: () Primary Insurance:GovernmentPolicy Number: [id number] Date:2021-10-22 [facility]
--- OUTSIDE RECORDS SUMMARY | 2024-11-06 11:00 | XMS_ITS | Encounter Summary ---
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 Name Role Phone NAMITA BASS Primary Care [...] OF SERVICE VERIZ ON Sep 05, 2019 [id number] [phone] LOGAN GARCIA PATIENT [employer] ([id number]) PRESCRIPT ION VERIZ ON Sep 05, 2017 [id number] [phone] LOGAN GARCIA PATIENT MEDICARE (WNR) MEDICARE (M) PART A Aug 05, 2013 PART A [id number] LOGAN GARCIA JIANG PATIENT MEDICARE (WNR) MEDICARE (M) PART A Aug 05, 2013 PART A [id number] [phone] LOGAN GARCIA JIANG PATIENT MEDICARE (WNR) MEDICARE (M) PART A Aug 05, 2013 PART A [id number] LOGAN GARCIA JIANG PATIENT MEDICARE (WNR) MEDICARE (M) PART A Aug 05, 2013 PART A [id number] LOGAN GARCIA PATIENT MEDICARE PART D (WNR) PRESCRIPT ION PART D Aug 05, 2013 PART D [id number] LOGAN GARCIA PATIENT MEDICARE PART D (WNR) PRESCRIPT ION PART D Aug 05, 2013 PART D [id number] LOGAN GARCIA PATIENT [facility] STEPHANIE ON Sep 05, 2016 [id number] [phone] LOGAN GARCIA PATIENT Selected Encounter This section includes the information on record at [place] for the Encounter. Date/Time Encounter Type Encounter Description Reason Provider Source Nov 06, 2024 03:00 PM OFFICE O/P EST LOW 20 MIN PODIATRY ICD-10-CM E11.42 Type 2 diabetes mellitus with diabetic polyneuropathy SHADE CHENG Delfino Encounter Template Text not used by [place] Assessments - Encounter Diagnoses This section includes the primary and secondary diagnoses documented for the Encounter. Date/Time Primary/Secondary Diagnosis Diagnosis Name Provider Source Nov 06, 2024 03:35 PM PRIMARY Type 2 diabetes mellitus with diabetic polyneuropathy CUATE CHENG ZORA Nov 06, 2024 03:35 PM SECONDARY Tinea unguium CUATE CHENG [facility] Plan of Treatment: Future Appointments (+ [...] Date/Time Appointment Type Appointme nt Facility Name Nov 07, 2024 10:00 AM AMBULATORY - REHAB [facility] Dec 13, 2024 10:00 AM AMBULATORY - NONE [facility] Dec 19, 2024 08:30 AM AMBULATORY - NONE [facility] Dec 26, 2024 11:00 AM AMBULATORY - NONE [facility] Feb 05, 2025 09:30 AM AMBULATORY - SURGERY [facility] Lab Results: +/- 30 days of the [...] Type Comment Oct 30, 2024 09:18 AM [facility] POC GLUCOSE BLOOD Specimen Type: BLOOD No comment entered. Ordering Provider: NAMITA BASS Report Released Date/Time: Oct 30, 2024 09:18 AM Reporting Lab: [facility] [address] [facility] [id number] Performing Lab: [address] [address] POC GLUCOSE 139 mg/dL H 74-106 Social [...] place. Date/Time Current Smoking Status Comment Twan ity Jun 26, 2024 09:30 AM VA-TOBACCO [...] ALL of a patient's completed or amended [place] Advance and Rescinded Directives. The entries below indicate that a directive exists for the patient, but an actual copy is not included with this document. The data comes from all [place] facilities. Date Advance Directives Provider Source May 21, 2020 ADVANCE DIRECTIVE DISCUSSION ZHANNA SAGASTUMENeeru [facility] Mar 29, 2018 ADVANCE DIRECTIVE DISCUSSION ZHANNA SAGASTUMENeeru [facility] Encounter Notes: All associated encounter notes This section contains the clinical notes associated to the Encounter. Date/Time Encounter Note(s) Provider Source Nov 06, 2024 03:08 PM PODIATRY NOTE: LOCAL TITLE: PODIATRY CLINIC NOTE (T) STANDARD TITLE: PODIATRY NOTE DATE OF NOTE: NOV 06, 2024@15:08 ENTRY DATE: NOV 06, 2024@15:08:07 AUTHOR: PAM CHENG EXP COSIGNER: URGENCY: STATUS: COMPLETED [facility] SOAP Note SUBJECTIVE: The patient is a 74 year old MALE. Chief Complaint: dm foot care Past Medical History: Pt presents today for dm foot care. Pt with neuropathy in the feet. Recent spinal injection with improvement noted. Pt is on lyrica for neuropathy. Using moisturizing cream. He is now 1 year s/p treatment with oral terbinafine. Pt is wearing dm shoes and socks, requests additional. PATIENT ALLERGIES DETAILED ALLERGIES/ADVERSE REACTIONS Type: DRUG Date/Time Reactant Severity Reaction 05/17/2007 08:09 PENICILLIN URTICARIA AMRS - MEDS (REC SUCCINCT) Active and Recently Inpatient, Outpatient and Clinic Medications (including Supplies): Active Outpatient Medications Status ========= 1) ACCU-CHEK GUIDE (GLUCOSE) TEST STRIP USE 1 STRIP ACTIVE TESTING TWICE A DAY BEFORE MEALS (BREAKFAST & DINNER) FOR BLOOD SUGAR 2) ALCOHOL PREP PAD USE PAD(S) SUPPLY ITEM DIRECTED ACTIVE FOR PERSONAL CLEANSING 3) ATORVASTATIN CALCIUM 80MG TAB TAKE ONE TABLET BY ACTIVE (S) MOUTH AT BEDTIME 4) CHLORTHALIDONE 25MG TAB TAKE ONE TABLET BY MOUTH ACTIVE EVERY DAY (WITH FOOD) 5) [id number]/[id number] 24HR TAB TAKE 2 ACTIVE (S) TABLETS [...] ONE TABLET BY MOUTH EVERY ACTIVE DAY 13) METOPROLOL SUCCINATE 100MG SA TAB TAKE ONE TABLET BY ACTIVE MOUTH EVERY DAY FOR HIGH BLOOD PRESSURE 14) OMEPRAZOLE 20MG EC CAP TAKE ONE CAPSULE BY MOUTH ACTIVE EVERY MORNING, ON AN EMPTY STOMACH 15) PREGABALIN 150MG ORAL CAP TAKE ONE CAPSULE BY MOUTH ACTIVE (S) TWICE A DAY FOR NERVE PAIN 16) [...] FOR ENLARGED PROSTATE Active Non-VA Medications Status ========= 1) Non-VA ASCORBIC ACID 500MG TAB 1000MG MOUTH EVERY DAY ACTIVE 2) Non-VA ASPIRIN 325MG EC TAB 325MG MOUTH EVERY DAY ACTIVE 3) Non-VA CHOLECALCIF 25MCG (D3-1,000UNIT) TAB 2000UNIT ACTIVE MOUTH EVERY DAY 4) Non-VA CYANOCOBALAMIN 1000MCG TAB 1000MCG MOUTH EVERY ACTIVE DAY 5) Non-VA GARLIC CAP/TAB 1 CAP/TAB MOUTH EVERY DAY ACTIVE 6) Non-VA INSULIN,ASPART(EQV-NOVLG)100UN/M L FLXPEN 5 ACTIVE UNITS SUBCUTANEOUSLY WITH BREAKFAST 7) Non-VA VITAMIN E 180MG (400UNIT) CAP 400UNT MOUTH ACTIVE EVERY DAY 25 Total Medications MEDICATION RECONCILIATION MEDICATION RECONCILIATION REPORT reviewed and discussed with patient. VA prescription medications: Patient verifies that they are in receipt of a complete and accurate list of medications. Prescription medications from another source: Patient verifies that they are in receipt of a complete and accurate list of medications. Over the counter medications, vitamins, herbals, and nutritional supplements: Patient verifies that they are in receipt of a complete and accurate list of medications. ALLERGIES: ALLERGIES/ADVERSE REACTIONS Type: DRUG Date/Time Reactant Severity Reaction 05/17/2007 08:09 PENICILLIN URTICARIA Food allergies: None known FOOT RISK LEVEL: DATE TIME HEALTH FACTOR ---- ---- 01/31/2024 13:00 DAY LIMB CARE LEVEL 2 07/31/2024 10:30 DAY LIMB CARE LEVEL 2 ACTIVE PROBLEM Exposure to Potentially Hazardous 12/26/2023 Substance ([facility] [id number]) Bilateral carpal tunnel syndrome 07/07/2021 Lumbar spondylosis 04/07/2021 Diabetic peripheral neuropathy 05/02/2017 associated with type 2 diabetes mellitus Venous insufficiency of leg 03/15/2016 Diplopia 07/24/2015 Screening for Malignant Neoplasms of 03/10/2022 colon GERD * (ICD-9-CM 530.81) 09/08/2010 HYPERLIPIDEMIA NEC/NOS 03/30/2010 Sleep Apnea (ICD-9-CM 780.57/786.09) 10/23/2008 Hyperlipidemia (SNOMED CT 61817528) 07/24/2015 Dermatophytosis of nail 07/24/2015 Obesity (SNOMED CT 424691344) 04/21/2018 Diabetes mellitus (SNOMED CT 33050782) 06/18/2015 Essential hypertension (SNOMED CT 07/24/2015 11506163) 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 OBJECTIVE: Vasc: DP palpable b/l 1/4. PT lightly palpable b/l. CFT < 3 secs to the hallux b/l. Skin temperature is warm to warm from tibial tuberosity to toes B/L. No hair growth noted. Mild non-pitting edema noted b/l. Derm:Nails 1-5 b/l are elongated, thickened, yellow, clearing noted nails 2-5 right,3-4 left. Left hallux nail dystrophic. Webspaces 1-4 b/l are clean, dry, and intact. Chronic hemosiderin deposits noted to the dorsal foot, ankle, and anterior legs b/l. Neuro:Protective sensation was intact 6/10 right foot 9/10 left foot as tested with SWMF. Light touch intact to the hallux b/l. Musculoskeletal: Mild reducible hammertoe deformities 2-4 b/l. 5/5 muscle strength for all 4 quadrants. PAVE FOOT EXAM A foot risk level [...] difficulty cleansing feet No Patient walks barefoot Never Instructed on the importance of not walking barefoot ASSESSMENT: After reviewing the H&P and clinical findings, this provider made the diagnosis of: Diabetes Mellitus with peripheral neuropathy Onychomycosis Venous insufficiency Tinea pedis - resolved Plan: Treatment today consisted of: -Patient examination and evaluation. -Debridement of nails 1-5 b/l, scant bleeding subungual left 4th toe, hemostasis with silver nitrate. -Continue moisturizing cream. -Dispensed dm socks -Consult for dm shoes -Patient to return to clinic in 3 months, nursing clinic Response to care/Rationale for care: Patient stable, loss of protective sensation, will continue to see regularly for hygienic care. Treatment luke /vira/ PAM CHENG [employer] Signed: 11/06/2024 15:36 PAM CHENG [facility]
--- OUTSIDE RECORDS SUMMARY | 2024-11-07 06:00 | XMS_ITS | Encounter Summary ---
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 Needle Grader Name Role Phone NAMITA BASS Primary Care [...] OF SERVICE VERIZ ON Sep 05, 2019 [id number] [phone] LOGAN GARCIA PATIENT [employer] ([id number]) PRESCRIPT ION VERIZ ON Sep 05, 2017 [id number] [phone] LOGAN GARCIA PATIENT MEDICARE (WNR) MEDICARE (M) PART A Aug 05, 2013 PART A [id number] [phone] LOGAN GARCIA PATIENT MEDICARE (WNR) MEDICARE (M) PART A Aug 05, 2013 PART A [id number] LOGAN GARCIA PATIENT MEDICARE (WNR) MEDICARE (M) PART A Aug 05, 2013 PART A [id number] [phone] LOGAN GARCIA PATIENT MEDICARE (WNR) MEDICARE (M) PART A Aug 05, 2013 PART A [id number] LOGAN GARCIA PATIENT MEDICARE PART D (WNR) PRESCRIPT ION PART D Aug 05, 2013 PART D [id number] LOGAN GARCIA PATIENT MEDICARE PART D (WNR) PRESCRIPT ION PART D Aug 05, 2013 PART D [id number] LOGAN GARCIA PATIENT [facility] STEPHANIE ON Sep 05, 2016 [id number] [phone] LOGAN GARCIA PATIENT Selected Encounter This section includes the information on record at [place] for the Encounter. Date/Time Encounter Type Encounter Description Reason Provider Source Nov 07, 2024 10:00 AM THERAPEUTIC EXERCISES PHYSICAL THERAPY ICD-10-CM M47.26 Other spondylosis with radiculopathy, lumbar region EMRE LACY Delfino Encounter Template Text not used by [place] Assessments - Encounter Diagnoses This section includes the primary and secondary diagnoses documented for the Encounter. Date/Time Primary/Secondary Diagnosis Diagnosis Name Provider Source Nov 23, 2024 02:58 PM PRIMARY Other spondylosis with radiculopathy, lumbar region EMRE LACY [facility] Plan of Treatment: Future Appointments (+ 6 months) and Future Tests (+/- 45 days) The Plan of Treatment section includes future care activities for the patient from all [place] treatmentfacilities. This section includes future appointments and future orders which are active, pending or scheduled. Future Appointments This section includes appointments that were scheduled to occur 6 months from the date of the Encounter, up to a maximum of 20 appointments. The data comes from all [place] treatment facilities. Appointment Date/Time Appointment Type Appointme nt Facility Name Dec 13, 2024 10:00 AM [facility]ATORY - NONE [facility] Dec 19, 2024 08:30 AM AMBULATORY - NONE [facility] Dec 26, 2024 11:00 AM AMBULATORY - NONE [facility] Feb 05, 2025 09:30 AM AMBULATORY - SURGERY [facility] Lab Results: +/- 30 days of the encounter This section includes the Chemistry and Hematology Lab Results on record with [place] for the patient. Radiology Reports and Pathology Reports are provided separately, in subsequent sections. Lab Results This section contains the Chemistry/Hematology Results that were resulted 30 days before or 30 daysafter the date of the Encounter. Date/Time Source Result Type Result - Unit Interpretation Reference Range Specimen Type Comment Oct 30, 2024 09:18 AM [facility] POC GLUCOSE BLOOD Specimen Type: BLOOD No comment entered. Ordering Provider: NAMITA BASS Report Released Date/Time: Oct 30, 2024 09:18 AM Reporting Lab: [facility] [address] [facility] [id number] Performing Lab: [facility] [id number] [place] [id number] POC GLUCOSE 139 mg/dL H 74-106 Social History: Smoking Status (Most current) and Tobacco Use (All prior to encounter date) This section includes the most current, and the historical, smoking and tobacco- related health factors from the [place] facility where the Encounter took place. Current Smoking Status This section includes the most current smoking, or tobacco-related health factor, from the [place] facility where the Encounter took place. Date/Time Current Smoking Status Comment Facil ity Jun 26, 2024 09:30 AM VA-TOBACCO QUIT 15 YRS OR MORE [facility] Tobacco Use History This section includes a history of the smoking, or tobacco-related health factors, that were collected on or before the date of the Encounter. The data comes from the [place] facility where the Encounter took place. Date/Time [...] AM QUIT TOBACCO >7 YEARS AGO [facility] May 17, 2007 08:13 AM QUIT TOBACCO >7 YEARS AGO [facility] Advance Directives: All historical and current Section Date Range: From patient's date of to the date document was created. This section includes ALL of a patient's completed or amended [place] and [place]cinded Directives. The entries below indicate that a directive exists for the patient, but an actual copy is not included with this document. The data comes from all [place] facilities. Date Advance Directives Provider Source May 21, 2020 ADVANCE DIRECTIVE DISCUSSION [facility] Mar 29, 2018 ADVANCE DIRECTIVE DISCUSSION [facility] Encounter Notes: All associated encounter notes This section contains the clinical notes associated to the Encounter. Date/Time Encounter Note(s) Provider Source Nov 07, 2024 09:48 AM PHYSICAL THERAPY D ISCHARGE NOTE: LOCAL TITLE: PM&RS PT DISCHARGE NOTE STANDARD TITLE: PHYSICAL THERAPY DISCHARGE NOTE DATE OF NOTE: NOV 07, 2024@09:48 ENTRY DATE: NOV 07, 2024@09:49 AUTHOR: EMRE LACY EXP COSIGNER: URGENCY: STATUS: COMPLETED Outpatient PT D/c Note; Dx Code; Spinal stenosis, lumbar region without neurogenic claudication(ICD-10-CM M48.061) Outpatient PT Tx #2 PT POC; 09/12/24->11/07/24 S: 74 yo returning to Outpatient Physical Therapy for f/u care. Confirms 10/30/24 L2-L3 and L3-L4 LESI from Pain Management. I'd say all the pain symptoms are less in the right leg. The thigh that was constant is now intermittent. Sometimes I have it and sometimes I do not. Per client, he remains with R LE numbness symptoms after the injection last month. I have the exercises you gave me. Yes, they are written down at home. Per client, he has completed exercises Once or twice over the past month as he does not value regular exercise for his lumbar spine. Agreeable to the following clinical review and D/c recommendations. Present symptoms; 0/10 center of lumbar spine Ache 1-2/10 R lateralization A 1-2/10 R inner thigh Ache 1/10 R calf Numbness O: Gait; Mod I with standard cane. SCI Stepper; 1.0 resistance 10 mins Clinical Activities; (*=Issued in written form) *1. Seated Lumbar flexion ROM; 15 reps, hold 5-10 sec. 2-3x/day -Included exhale overpressure progression -Included cervical flexion first progression *2. Supine LTR; Difficult to do at home due to no firm mattress. *3. Standing lumbar flexion ROM; Pt Education; -Daily Lumbar flexion bias HEP recommendations -Both standing and seated lumbar flexion -Need for repetitive seated stepper/cycle use -Importance of regular exercise at local gym (Stepper/cycle) Outcome Measures; MADELEINE; 11/07/24 Total; 44% Self Rep Disability GROC; 11/07/24 Total; +4 ( Moderately better ) 30 mins Ther ex x 2 A: 74 yo who remains ambivalent regarding daily self-management via lumbar flexion ROM repetitive activities for his symptomatic lumbar stenosis condition. All PT instructions and education completed with recommendations for repetitive and daily lumbar flexion self-stretching. He fully understands our recommendations however does not value daily ACTIVE self-management for this condition. All questions were addressed and no additional skilled PT care is scheduled for this case. Pt goal; I want to see if the right leg will calm down and I could walk a bit further. GM THERAPIST'S GOALS: STG; 1-2 visits 1. Client will demonstrate daily efforts with lumbar flexion/rotation bias HEP. GNM 2. demonstrate improved R proximal hip strength levels. GNM 3. ability to self-manage via HEP. GNM 4. demonstrate a +3 GROC score. GM 5. report 25% improvement in ambulation tolerance. GM (Injection) Completed; 2/5 P: D/c to written daily HEP recommendations above. PCP 12/26/24 Signing off care, appreciate this consult. /vira/ EMRE LACY PHYSICAL THERAPIST Signed: 11/07/2024 12:24 EMRE LACY [facility]
--- OUTSIDE RECORDS SUMMARY | 2024-12-13 06:00 | XMS_ITS | Encounter Summary ---
Author Name [facility] [place] [facility] [facility] [place] Address [address] [place] [address] Care Team Providers Care Hospital Nurse Liaison Name Role Phone NAMITA BASS Primary Care [...] OF SERVICE VERIZ ON Sep 05, 2019 [id number] [phone] LOGAN GARCIA PATIENT [employer] ([id number]) PRESCRIPT ION VERIZ ON Sep 05, 2017 [id number] LOGAN GARCIA PATIENT MEDICARE (WNR) MEDICARE (M) PART A Aug 05, 2013 PART A [id number] LOGAN GARCIA JIANG PATIENT MEDICARE (WNR) MEDICARE (M) PART A Aug 05, 2013 PART A [id number] LOGAN GARCIA JIANG PATIENT MEDICARE (WNR) MEDICARE (M) PART A Aug 05, 2013 PART A [id number] LOGAN GARCIA JIANG PATIENT MEDICARE (WNR) MEDICARE (M) PART A Aug 05, 2013 PART A [id number] LOGAN GARCIA PATIENT MEDICARE PART D (WNR) PRESCRIPT ION PART D Aug 05, 2013 PART D [id number] LOGAN GARCIA PATIENT MEDICARE PART D (WNR) PRESCRIPT ION PART D Aug 05, 2013 PART D [id number] LOGAN GARCIA PATIENT [facility] ON Sep 05, 2016 [id number] [phone] LOGAN GARCIA PATIENT Selected Encounter This section includes the information on record at [place] for the Encounter. Date/Time Encounter Type Encounter Description Reason Pro vider Source Dec 13, 2024 10:00 AM Outpatient Encounter [facility] Encounter Template Text not used by [place] Plan of Treatment: Future Appointments (+ 6 months) and Future Tests (+/- 45 days) The Plan of Treatment section includes future care activities for the patient from all [place] treatmentfacilities. This section includes future appointments and future orders which are active, pending or scheduled. Future Appointments This section includes appointments that were scheduled to occur 6 months from the date of the Encounter, up to a maximum of 20 appointments. The data comes from all [place] treatment facilities. Appointment Date/Time Appointment Type Appointme nt Facility Name Dec 19, 2024 08:30 AM AMBULATORY - NONE [facility] Dec 26, 2024 11:00 AM AMBULATORY - NONE [facility] Feb 05, 2025 09:30 AM AMBULATORY - SURGERY [facility] Active, Pending, and Scheduled Orders This section includes a listing of several types of active, pending, and scheduled orders, including clinic medications orders, diagnostic test orders, procedure orders and consult orders; where the start date of the order is 45 days before the date of the Encounter or 45 days after the date of theEncounter. The data comes from all [place] treatment facilities. Test Date/Time Test Type Test Details Facility Name Dec 26, 2024 11:46 AM Consult Order [facility] Lab Results: +/- 30 days of the encounter This section includes the Chemistry and Hematology Lab Results on record with [place] for the patient. Radiology Reports and Pathology Reports are provided separately, in subsequent sections. Lab Results This section contains the Chemistry/Hematology Results that were resulted 30 days before or 30 daysafter the date of the Encounter. Date/Time Source Result Type Result - Unit Interpretation Reference Range Specimen Type Comment Dec 19, 2024 08:17 AM [facility] HEMOGLOBIN A1C BLOOD Specimen Type: BLOOD Comment: Values obtained from A1C measurements can vary. For typical A1C assays, a reported value of 7.0 could actually be between 6.72 and 7.28 if measured by a reference method. A reported value of 9.0 could actually be between 8.73 and 9.27. Ref: http://www.[email or web address] org/[email or web address].asp Ordering Provider: NAMITA BASS Report Released Date/Time: Dec 18, 2024 04:22 PM Reporting Lab: [address] [phone] Performing Lab: [address] [phone] HEMOGLOBIN A1C 7.6 H 3.6-5.7 Dec 19, 2024 08:17 AM [facility] TSH PLASMA Specimen Type: PLASMA Comment: GLUCOSE The ADA recommends a fasting glucose of 99 mg/dL as the GLUCOSE upper limit of normal. TP Per package insert reference range for recumbent is 6.0 to 7.8 TP g/dL. Plasma samples will generally have higher values (about TP 0.2 to 0.4 g/dL higher) due to presence of fibrinogen. TRIG REFERENCE RANGE: BORDERLINE HIGH: 150-199 mg/dL HIGH: 200-499 TRIG mg/dL VERY HIGH: >=500 mg/dL CHOL REF RANGE: BORDERLINE HIGH: 200-239 mg/dL HIGH: >=240 mg/dL HDLC Values >60 are a negative risk factor for heart disease. DLDL REF RANGE: NEAR OR ABOVE OPTIMAL: 100-129 mg/dL BORDERLINE DLDL HIGH: 130-159 mg/dL HIGH: 160-189 mg/dL VERY HIGH: >=190 Ordering Provider: NAMITA BASS Report Released Date/Time: Dec 18, 2024 04:22 PM Reporting Lab: [address] [phone] Performing Lab: [address] [phone] TSH 0.917 u[IU]/mL 0.350-4.940 Dec 19, 2024 08:17 AM [facility] LIPID PROFILE PLASMA Specimen Type: PLASMA Comment: GLUCOSE The ADA recommends a fasting glucose of 99 mg/dL as the GLUCOSE upper limit of normal. TP Per package insert reference range for recumbent is 6.0 to 7.8 TP g/dL. Plasma samples will generally have higher values (about TP 0.2 to 0.4 g/dL higher) due to presence of fibrinogen. TRIG REFERENCE RANGE: BORDERLINE HIGH: 150-199 mg/dL HIGH: 200-499 TRIG mg/dL VERY HIGH: >=500 mg/dL CHOL REF RANGE: BORDERLINE HIGH: 200-239 mg/dL HIGH: >=240 mg/dL HDLC Values >60 are a negative risk factor for heart disease. DLDL REF RANGE: NEAR OR ABOVE OPTIMAL: 100-129 mg/dL BORDERLINE DLDL HIGH: 130-159 mg/dL HIGH: 160-189 mg/dL VERY HIGH: >=190 Ordering Provider: NAMITA BASS Report Released Date/Time: Dec 18, 2024 04:22 PM Reporting Lab: [address] [phone] Performing Lab: [address] [phone] CHOLESTEROL 148 mg/dL 0-199 LDL CHOLESTEROL 58 mg/dL 0-99 HDL CHOLESTEROL 24 mg/dL L >40 TRIGLYCERIDE 352 mg/dL H 0-149 Dec 19, 2024 08:17 AM [facility] COMPREHENSIVE METABOLIC PANEL PLASMA S pecimen Type: PLASMA Comment: GLUCOSE The ADA recommends a fasting glucose of 99 mg/dL as the GLUCOSE upper limit of normal. TP Per package insert reference range for recumbent is 6.0 to 7.8 TP g/dL. Plasma samples will generally have higher values (about TP 0.2 to 0.4 g/dL higher) due to presence of fibrinogen. TRIG REFERENCE RANGE: BORDERLINE HIGH: 150-199 mg/dL HIGH: 200-499 TRIG mg/dL VERY HIGH: >=500 mg/dL CHOL REF RANGE: BORDERLINE HIGH: 200-239 mg/dL HIGH: >=240 mg/dL HDLC Values >60 are a negative risk factor for heart disease. DLDL REF RANGE: NEAR OR ABOVE OPTIMAL: 100-129 mg/dL BORDERLINE DLDL HIGH: 130-159 mg/dL HIGH: 160-189 mg/dL VERY HIGH: >=190 Ordering Provider: NAMITA BASS Report Released Date/Time: Dec 18, 2024 04:22 PM Reporting Lab: [address] [phone] Performing Lab: [place] [id number] ALBUMIN 3.9 g/dL 3.5-4.8 ALKALINE PHOSPHATASE 38 U/L L 40-150 ALT/SGPT 28 U/L 0-55 AST/SGOT 19 U/L 10-40 BUN 28.3 mg/dL H 8.4-25.7 CALCIUM 8.8 mg/dL 8.6-10.3 CREATININE 1.4 mg/dL H 0.7-1.3 CO2 25 mmol/L 22-30 GLUCOSE 173 mg/dL H 74-99 PROTEIN, TOTAL 7.4 g/dL 6.4-8.3 SODIUM 143 mmol/L 134-144 CHLORIDE 110 mmol/L 99-112 BILIRUBIN, TOTAL 0.5 mg/dL 0.2-1.2 POTASSIUM 4.3 mmol/L 3.5-5.1 ANION GAP 12 mmol/L 10-20 EGFR (CALCULATED) 52 Dec 19, 2024 08:17 AM [facility] CBC BLOOD Specimen Type: BLOOD No comment entered. Ordering Provider: NAMITA BASS Report Released Date/Time: Dec 18, 2024 04:22 PM Reporting Lab: [address] [phone] Performing Lab: [address] [phone] WBC COUNT 6.2 10*3/uL 3.6-11.0 RBC COUNT 5.20 10*6/uL 4.47-5.83 HGB 15.9 g/dL 13.6-17.4 HCT 46.5 40.0-51.0 MCV 89.4 fL 80.0-96.0 MCH 30.7 pg 27.0-31.0 MCHC 34.3 g/dL 31.5-36.5 PLT 113 10*3/uL L 150-400 LYMPHS % 31.7 21.0-51.0 MONOCYTES % 7.6 4.0-8.0 NUCLEATED RBC/100WBC 0.3 /100{WBCs} RDW 15.3 11.2-15.8 NEUTROPHIL % 56.5 54.0-78.0 EOSINOPHIL % 3.5 H 0.0-3.0 BASOPHIL % 0.7 0.0-3.0 ABSOLUTE LYMPHOCYTE COUNT 2.0 10*3/uL 0. 8-5.0 ABSOLUTE NEUTROPHIL COUNT 3.5 10*3/uL 1. 9-8.6 ABSOLUTE BASOPHIL COUNT 0.0 10*3/uL 0.0- 0.3 ABSOLUTE MONOCYTE COUNT 0.5 10*3/uL 0.1- 0.9 ABSOLUTE EOSINOPHIL COUNT 0.2 10*3/uL 0. 0-0.3 MPV 10.5 fL 7.4-11.4 Social History: Smoking Status (Most current) and Tobacco Use (All prior to encounter date) This section includes the most current, and the historical, smoking and tobacco- related health factors from the [place] facility where the Encounter took place. Current Smoking Status This section includes the most current smoking, or tobacco-related health factor, from the [place] facility where the Encounter took place. Date/Time Current Smoking Status Comment Facil ity Mar 30, 2010 10:46 AM QUIT TOBACCO >7 YEARS AGO [facility] Advance Directives: All historical and current Section Date Range: From patient's date of to the date document was created. This section includes ALL of a patient's completed or amended [place] Advance and Rescinded Directives. The entries below indicate that a directive exists for the patient, but an actual copy is not included with this document. The data comes from all [place] facilities. Date Advance Directives Provider Source May 21, 2020 [facility] DIRECT[facility] Mar 29, 2018 [facility] Encounter Notes: All associated encounter notes This section contains the clinical notes associated to the Encounter. Date/Time Encounter Note(s) Provider Source Dec 13, 2024 10:28 AM NO SHOW NOTE: LOCAL TITLE: NO SHOW (T)// NO SHOW/CANCELLATION NOTE STANDARD TITLE: NO SHOW NOTE DATE OF NOTE: DEC 13, 2024@10:28 ENTRY DATE: DEC 13, 2024@10:28:25 AUTHOR: SOUMYA HOLLIDAY COSIGNER: URGENCY: STATUS: COMPLETED Patient did not keep scheduled appointment. I called the patient's listed phone number and received voicemail. I left a discrete message for the patient to call to reschedule, if needed. I remained on line for over 15 minutes. /vira/ SOUMYA HOLLIDAY PHYSICIAN Signed: 12/13/2024 10:29 SOUMYA HOLLIDAY [facility]
--- OUTSIDE RECORDS SUMMARY | 2024-12-26 07:00 | XMS_ITS | Encounter Summary ---
Author Name [facility] [place] [facility] [place] Address [address] [place] [address] Care Team Providers Care Attending Radiologist Name Role Phone NAMITA BASS Primary Care [...] OF SERVICE VERIZ ON Sep 05, 2019 [id number] [phone] LOGAN GARCIA PATIENT [facility] ([id number]) PRESCRIPT ION VERIZ ON Sep 05, 2017 [id number] [id number] LOGAN GARCIA PATIENT MEDICARE (WNR) MEDICARE (M) PART A Aug 05, 2013 PART A [id number] [id number] LOGAN GARCIA JIANG PATIENT MEDICARE (WNR) MEDICARE (M) PART A Aug 05, 2013 PART A [id number] LOGAN GARCIA JIANG PATIENT MEDICARE (WNR) MEDICARE (M) PART A Aug 05, 2013 PART A [id number] LOGAN GACRIA JIANG PATIENT MEDICARE (WNR) MEDICARE (M) PART A Aug 05, 2013 PART A [id number] LOGAN GARCIA PATIENT MEDICARE PART D (WNR) PRESCRIPT ION PART D Aug 05, 2013 PART D [id number] LOGAN GARCIA PATIENT MEDICARE PART D (WNR) PRESCRIPT ION PART D Aug 05, 2013 PART D [id number] LOGAN GARCIA PATIENT [facility] STEPHANIE ON Sep 05, 2016 [id number] [phone] LOGAN GARCIA PATIENT Selected Encounter This section includes the information on record at NH for the Encounter. Date/Time Encounter Type Encounter Description Reason Provider Source Dec 26, 2024 11:00 AM OFFICE O/P EST MOD 30 MIN PRIMARY CARE/MEDICINE ICD-10-CM E11.8 Type 2 diabetes mellitus with unspecified complications NAMITA BASS Delfino Encounter Template Text not used by NH Assessments - Encounter Diagnoses This section includes the primary and secondary diagnoses documented for the Encounter. Date/Time Primary/Secondary Diagnosis Diagnosis Name Provider Source Dec 26, 2024 12:29 PM PRIMARY Type 2 diabetes mellitus with unspecified complications NAMITA BASS [facility] Dec 26, 2024 12:29 PM SECONDARY Essential (primary) hypertension NAMITA BASS [facility] Dec 26, 2024 12:29 PM SECONDARY Hyperlipidemia, unspecified NAMITA BASS [facility] Dec 26, 2024 12:29 PM SECONDARY Other spondylosis with radiculopathy, lumbar region NAMITA BASS [facility] Dec 26, 2024 12:29 PM SECONDARY Type 2 diabetes mellitus with diabetic polyneuropathy NAMITA BASS [facility] Plan of Treatment: Future Appointments (+ 6 months) and Future Tests (+/- 45 days) The Plan of Treatment section includes future care activities for the patient from all [place] treatmentfacilities. This section includes future appointments and future orders which are active, pending or scheduled. Future Appointments This section includes appointments that were scheduled to occur 6 months from the date of the Encounter, up to a maximum of 20 appointments. The data comes from all NH treatment facilities. Appointment Date/Time Appointment Type Appointme nt Facility Name Feb 05, 2025 09:30 AM AMBULATORY - SURGERY [facility] Jun 26, 2025 08:30 AM AMBULATORY - NONE [facility] Active, Pending, and Scheduled Orders This section includes a listing of several types of active, pending, and scheduled orders, including clinic medications orders, diagnostic test orders, procedure orders and consult orders; where the start date of the order is 45 days before the date of the Encounter or 45 days after the date of theEncounter. The data comes from all [place] treatment facilities. Test Date/Time Test Type Test Details Facility Name Dec 26, 2024 11:46 AM Consult Order COMM[facility]ITY CARE-COLONOSCOPY [facility] Cons [facility] Lab Results: +/- 30 days of the encounter This section includes the Chemistry and Hematology Lab Results on record with NH for the patient. Radiology Reports and Pathology Reports are provided separately, in subsequent sections. Lab Results This section contains the Chemistry/Hematology Results that were resulted 30 days before or 30 daysafter the date of the Encounter. Date/Time Source Result Type Result - Unit Interpretation Reference Range Specimen Type Comment Dec 19, 2024 08:17 AM [facility] HEMOGLOBIN A1C BLOOD Specimen Type: BLOOD Comment: [...] Dec 18, 2024 04:22 PM Reporting Lab: [address] [id number] Performing Lab: [address] [address] HEMOGLOBIN A1C 7.6 H 3.6-5.7 Dec 19, 2024 08:17 AM [facility] TSH PLASMA Specimen Type: PLASMA Comment: GLUCOSE [...] Dec 18, 2024 04:22 PM Reporting Lab: [address] [address] Performing Lab: [address] [address] TSH 0.917 u[IU]/mL 0.350-4.940 Dec 19, 2024 08:17 AM [facility] LIPID PROFILE PLASMA Specimen Type: PLASMA Comment: [...] Dec 18, 2024 04:22 PM Reporting Lab: [address] [address] Performing Lab: [address] [address] CHOLESTEROL 148 mg/dL 0-199 LDL CHOLESTEROL 58 mg/dL 0-99 HDL CHOLESTEROL 24 mg/dL L >40 TRIGLYCERIDE 352 mg/dL H 0-149 Dec 19, 2024 08:17 AM [facility] ESCOBAR COMPREHENSIVE METABOLIC PANEL PLASMA S pecimen Type: [...] Dec 18, 2024 04:22 PM Reporting Lab: [address] [address] Performing Lab: [address] [address] ALBUMIN 3.9 g/dL 3.5-4.8 ALKALINE PHOSPHATASE 38 [...] 52 Dec 19, 2024 08:17 AM [facility] CBC BLOOD Specimen Type: BLOOD No comment entered. Ordering Provider: NAMITA BASS Report Released Date/Time: Dec 18, 2024 04:22 PM Reporting Lab: [address] [address] Performing Lab: [address] [address] WBC COUNT 6.2 10*3/uL 3.6-11.0 RBC COUNT [...] and tobacco- related health factors from the NH facility where the Encounter took place. Current Smoking Status This section includes the most current smoking, or tobacco-related health factor, from the NH facility where the Encounter took place. Date/Time Current Smoking Status Comment Facil ity Jun 26, 2024 09:30 AM NH-TOBACCO FORMER USER [facility] Tobacco Use History This section includes a history of the smoking, or tobacco-related health factors, that were collected on or before the date of the Encounter. The data comes from the NH facility where the Encounter took place. Date/Time Smoking Status/Tobacco Use Comment F acility Jun 26, 2024 09:30 AM NH-TOBACCO QUIT 15 YRS OR MORE [facility] Jun 14, 2023 09:30 AM NH-TOBACCO FORMER USER [facility] Jun 14, 2023 [...] this document. The data comes from all [place] facilities. Date Advance Directives Provider Source May 21, 2020 ADVANCE DIRECTIVE DISCUSSION [facility] Mar 29, 2018 ADVANCE DIRECTIVE DISCUSSION [facility] Encounter Notes: All associated encounter notes This section contains the clinical notes associated to the Encounter. Date/Time Encounter Note(s) Provider Source Dec 26, 2024 11:38 AM INTERNAL MEDICINE OUTPATIENT NOTE: LOCAL TITLE: PRIMARY CARE OUTPATIENT NOTE (T) STANDARD TITLE: INTERNAL MEDICINE OUTPATIENT NOTE DATE OF NOTE: DEC 26, 2024@11:38 ENTRY DATE: DEC 26, 2024@11:38:04 AUTHOR: NAMITA BASS EXP COSIGNER: URGENCY: STATUS: COMPLETED In-person Note 74yo Reason for Visit: 74 y/o male with hx of lumbar spondylosis, DLD, DM2, HTN, colon polyps is here for routine follow up. Pt states that he is doing well. He underwent injections for his back pain and has had improvement. States he still notices weakness in RLE. c/o stiffness in bilateral hands. Has pain in right great toe (not the toenail) and burning at the tip of his tongue. Admits he has not been diligent with diet and activity and his sugar has been higher. He is taking his meds. 16 Active Problems PROBLEM LAST MOD PROVIDER [...] 780.57/786.09) 10/23/2008 NAMITA BASS Hyperlipidemia (SNOMED CT 98952821) 07/24/2015 NAMITA BASS Dermatophytosis of nail 07/24/2015 YOAN CHENG Obesity (SNOMED CT 666188736) 04/21/2018 SIVAN LESTER Diabetes mellitus (SNOMED CT 45072113) 06/18/2015 MARCELLUS FOREMAN Essential hypertension (SNOMED CT 63844584) 07/24/2015 NAMITA BASS 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 NAMITA BASS REVIEW OF SYSTEMS: as above, plus HEENT: DENIES CV: DENIES RESP: DENIES GI: DENIES : OK with tamsulosin NEURO: DENIES SKIN: DENIES MSK: DENIES ENDO: DENIES PSYCH: DENIES PATIENT ALLERGIES DETAILED ALLERGIES/ADVERSE REACTIONS Type: DRUG Date/Time Reactant Severity Reaction 05/17/2007 08:09 PENICILLIN URTICARIA AMRS - MEDS (REC SUCCINCT) Active and Recently Inpatient, Outpatient and Clinic Medications (including Supplies): Active Outpatient Medications Status 1) ALCOHOL PREP PAD USE PAD(S) SUPPLY ITEM DIRECTED ACTIVE FOR PERSONAL CLEANSING 2) ATORVASTATIN CALCIUM 80MG TAB TAKE ONE TABLET BY ACTIVE MOUTH AT BEDTIME 3) CHLORTHALIDONE 25MG TAB TAKE ONE TABLET BY MOUTH ACTIVE EVERY DAY (WITH FOOD) 4) [id number] G 24HR TAB TAKE 2 ACTIVE TABLETS BY MOUTH EVERY MORNING 5) HYDROPHILIC (EQV EUCERIN) TOP CREAM APPLY A ACTIVE SUFFICIENT AMOUNT EXTERNALLY EVERY DAY NEEDED TO DRY SKIN 6) ICOSAPENT ETHYL 1GM CAP TAKE TWO CAPSULES BY MOUTH ACTIVE TWICE A DAY WITH MEALS *SWALLOW CAPSULES WHOLE* 7) INSULIN SYRINGE 1ML 31G 6MM USE SYRINGE SUPPLY ITEM ACTIVE TWICE A DAY FOR INJECTION OF MEDICATION 8) INSULIN,GLARGINE,HUMAN 100 UNIT/ML INJ INJECT 60 ACTIVE UNITS SUBCUTANEOUSLY TWICE A DAY 9) LIDOCAINE 5% PATCH APPLY THREE PATCHES TO CLEAN DRY ACTIVE SKIN EVERY DAY FOR BACK PAIN . PATCH SHOULD REMAIN ON SKIN NO LONGER THAN 12 HOURS IN ANY 24 HOUR PERIOD. 10) LISINOPRIL 40MG TAB TAKE ONE TABLET BY MOUTH EVERY ACTIVE DAY 11) METOPROLOL SUCCINATE 100MG SA TAB TAKE ONE TABLET BY ACTIVE MOUTH EVERY DAY FOR HIGH BLOOD PRESSURE 12) OMEPRAZOLE 20MG EC CAP TAKE ONE CAPSULE BY MOUTH ACTIVE EVERY MORNING, ON AN EMPTY STOMACH 13) PREGABALIN 150MG ORAL CAP TAKE ONE CAPSULE BY MOUTH ACTIVE TWICE A DAY FOR NERVE PAIN 14) PSYLLIUM SF ORAL PWD STIR 1 ROUNDED TABLESPOONFUL IN ACTIVE 8 OUNCES OF WATER OR OTHER LIQUID BY MOUTH EVERY DAY NEEDED FOR REGULAR BOWELS 15) SEMAGLUTIDE 2MG/0.75ML INJ PEN 3ML INJECT 2MG ACTIVE SUBCUTANEOUSLY EVERY WEEK FOR TYPE 2 DIABETES MELLITUS FOR DIABETES AND BLOOD SUGAR CONTROL. KEEP REFRIGERATED, HOWEVER, MAY BE KEPT AT ROOM TEMPERATURE FOR UP TO 56 DAYS 16) TAMSULOSIN HCL 0.4MG CAP TAKE ONE CAPSULE BY MOUTH AT ACTIVE BEDTIME FOR ENLARGED PROSTATE Inactive Outpatient Medications Status 1) ACCU-CHEK GUIDE (GLUCOSE) TEST STRIP USE 1 STRIP TESTING TWICE A DAY BEFORE MEALS (BREAKFAST & DINNER) FOR BLOOD SUGAR 2) LANCET,SOFTCLIX USE LANCET(S) TESTING DIRECTED FOR BLOOD SUGAR TESTING Active Non-VA Medications Status 1) Non-VA ASCORBIC [...] MOUTH ACTIVE EVERY DAY 25 Total Medications PHYSICAL EXAM: Vital Signs: T: 98.9 F [37.2 C] (12/26/2024 10:55) P: 73 (12/26/2024 10:55) R: 20 (12/26/2024 10:55) BP: 114/72 (12/26/2024 10:55) Pain: 2 (12/26/2024 11:01) Height: 74 in [188.0 cm] (2017 09:51) Weight: 297.8 lb [135.08 kg] (12/26/2024 10:55) Pulse Ox: 94% (12/26/2024 10:55) Pt alert, NAD. HRRR, LCTAB. no peripheral edema. labs reviewed. HgbA1c 7.6% eGFR 52, triglycerides elevated. otherwise labs ok. ASSESSMENT/PLAN: 1. lumbar spondylosis - weakness is not likely to get better. He has nerve damage that has been present since the initial injury, and he was/is not interested in spine surgery 2. DM2 - discussed medications, diet, physical activity. Pt states he has not been diligent re: his DM2 control and will work on improving. 3. HTN, DLD - cont meds 4. pt will discuss toe pain with podiatry at his upcoming appt. 5. discuss neuropathy. cont pregabalin. HEALTH MAINTENANCE/CLINICAL REMINDERS: Clinical Reminders Activity Follow Up Colonoscopy: Colonoscopy is due based on information available to this reminder. Colonoscopy consult has been ordered. See orders tab for details. MEDICATION RECONCILIATION Medication Reconciliation report reviewed and discussed with patient/caregiver. VA prescription medications, non-VA prescription medications, OTC and herbal medications reviewed: Patient/caregiver verifies that the list is complete and accurate and voices understanding. FOLLOW-UP: recheck 6 mos. labs prior. call prn. I am the Attending Physician. TOTAL TIME SPENT: Spent 32 minutes in care of this patient today including review of records, exam, and placing orders. /vira/ NAMITA BASS PHYSICIAN Signed: 12/26/2024 12:29 NAMITA BASS [facility] Dec 26, 2024 10:57 AM PRIMARY CARE NURSI NOTE: LOCAL TITLE: OUTPATIENT NURSING INTAKE NOTE (T) STANDARD TITLE: PRIMARY CARE NURSING NOTE DATE OF NOTE: DEC 26, 2024@10:57 ENTRY DATE: DEC 26, 2024@10:57:08 AUTHOR: JENNIFER CUMMINGS EXP COSIGNER: URGENCY: STATUS: COMPLETED Hemoglobin A1C Results: Collection DT Specimen Test Name Result Units Ref Range 12/19/2024 08:17 BLOOD HEMOGLOBIN A1C 7.6 H % 3.6 - 5.7 Comment: Values obtained from A1C measurements can vary. For typical A1C Comment: assays, a reported value of 7.0 could actually be between 6.72 and Comment: 7.28 if measured by a reference method. A reported value of 9.0 Comment: could actually be between 8.73 and 9.27. Ref: Comment: http://www.ngsp.org/CAPdata.as p 06/19/2024 09:16 BLOOD HEMOGLOBIN A1C 7.3 H [...] Reactant Severity Reaction 05/17/2007 08:09 PENICILLIN URTICARIA Have you fallen in the last 30 days? NO MEDICATION LIST REVIEW REPORT Patient states no change in documented OTC/Herbals at this visit. 1. Has the patient been feeling sad or distressed? No 2. Has the patient been having personal or family problems? No 3. Has the patient been experiencing worry and/or stress? No 4. Has the patient been having problems with drugs and/or alcohol? No 5. [place] Crisis [facility] pocket card was provided to patient. Yes [facility] ('s [place], [place] and [place]) What matters most to you? Comment: family Clinical Reminders Activity Advance Directive Education Screen: Patient received information regarding Advance Directives: Yes - Patient has been given information/education regarding Advance Directives. Patient advised to follow up with Social Work Service. Level of Understanding: Good Fall Screen: Patient was asked if he/she has had any falls within the past 12 months. Patients states no falls in past 12 months. Teaching Method: Verbal discussion Education Topic: Falls Risk Level of Understanding: Good Comment: uses a cane Frail/Elderly Screen: ADL Screen - Cheng Index of [place] in Activities of Daily Living Record INDEX of ADL. Score = 18 1. Bathing: either sponge bath, tub bath or shower. Receives no assistance (gets in and out of tub by self, if tub is usual means of bathing). 2. Dressing: gets clothes from closets and drawers, including under-clothes, outer garments and using fasteners (including braces if worn). Gets clothes and dresses self without assistance. 3. Toileting: going to the toilet room for bowel and urine elimination; cleaning self after elimination and arranging clothes. (May use cane, walker, or wheelchair, and manage bedpan or commode, emptying same next morning). No assistance needed. 4. Transfer: Moves in and out of bed, or chair, without assistance (may use support object like cane or walker). 5. Continence: Controls urination and bowel movement completely by self. 6. Feeding: Feeds self without assistance. IADL Screen - [place] Instrumental Activities of Daily Living Scale Ability to use telephone: (1 point) Operates Telephone on own initiative; looks up and dials numbers. Shopping: (1 point) Takes care of all shopping needs independently. Food preparation: (1 point) Plans, prepares, and serves adequate meals independently. Housekeeping: (1 point) Performs light daily tasks such as dishwashing, bed making. Laundry: (1 point) Does personal laundry completely. Mode of transportation: (1 point) Travels independently on public transportation or drives own car. Responsibility for own medications: (1 point) Is responsible for taking medications in correct dosages at correct times. Ability to handle finances: (1 point) Manages financial matters independently (budgets, writes checks, pays rent and bills, goes to bank); collects and keeps track of income. Total score: 8 points 8 = High function, independent 0 = Low function, dependent Homelessness/Food Insecurity Screen: In the past 2 months, have you been living in stable housing that you own, rent, or stay in as part of a household? Yes - Living in stable housing. Are you worried or concerned that in the next 2 months you may NOT have stable housing that you own, rent, or stay in as part of a household? No - Not worried about housing near future The reports the following: Within the past 12 months, you worried whether your food would run out before you got money to buy more. Never true Within the past 12 months, the food you bought just didn't last and you didn't have money to get more. Never true Pain, Brief Evaluation: Type of pain: Ongoing Location: Low Back right leg Intensity: Currently: 2 Usually: 2 Description of Pain: Aching Sharp Patient Education Documentation: LEARNING NEEDS ASSESSMENT: The patient/family/significant other reports no changes in learning needs. RSV Immunization: Respiratory Syncytial Virus (RSV) Vaccine: Refused UCT Coatings (Abrysvo, RSVpreF vaccine). Immunization: RSV, BIVALENT, PROTEIN SUBUNIT RSVPREF, DILUENT RECONSTITUTED, 0.5 ML, PF Refusal Reason: PATIENT DECISION Patient refuses all immunization(s) in the RSV group Date Documented: 12/26/24 11:02 Tdap Immunization: The patient declines to receive the recommended dose of Tdap vaccine. Immunization: TDAP Refusal Reason: PATIENT DECISION Patient refuses all immunization(s) in the TDAP group Date Documented: 12/26/24 11:03 /vira/ JENNIFER CUMMINGS LICENSED PRACTICAL NURSE Signed: 12/26/2024 11:04 JENNIFER CUMMINGS [facility]
--- OUTSIDE RECORDS SUMMARY | 2025-01-22 06:19 | XMS_ITS | Encounter Summary ---
Author Name [facility] Organization [facility] Address [address] [place] [address] Care Team Providers Care Learning Facilitator Name Role Phone NAMITA BASS Primary Care [...] OF SERVICE VERIZ ON Sep 05, 2019 [id number] [phone] LOGAN GARCIA PATIENT [facility] ([id number]) PRESCRIPT ION VERIZ ON Sep 05, 2017 [id number] [id number] LOGAN GARCIA PATIENT MEDICARE (WNR) MEDICARE (M) PART A Aug 05, 2013 PART A [id number] LOGAN GARCIA PATIENT MEDICARE (WNR) MEDICARE (M) PART A Aug 05, 2013 PART A [id number] [phone] LOGAN GARCIA PATIENT MEDICARE (WNR) MEDICARE (M) PART A Aug 05, 2013 PART A [id number] LOGAN GARCIA PATIENT MEDICARE (WNR) MEDICARE (M) PART A Aug 05, 2013 PART A [id number] LOGAN GARCIA PATIENT MEDICARE PART D (WNR) PRESCRIPT ION PART D Aug 05, 2013 PART D [id number] LOGAN GARCIA PATIENT MEDICARE PART D (WNR) PRESCRIPT ION PART D Aug 05, 2013 PART D [id number] LOGAN GARCIA PATIENT [facility] STEPHANIE ON Sep 05, 2016 [id number] [phone] LOGAN GARCIA PATIENT Selected Encounter This section includes the information on record at ID for the Encounter. Date/Time Encounter Type Encounter Description Reason Pro vider Source January 22, 2025 10:19 AM Outpatient Encounter PRIMARY CARE/MEDICINE IHE Encounter Template Text not used by ID Plan of Treatment: Future Appointments (+ 6 months) and Future Tests (+/- 45 days) The Plan of Treatment section includes future care activities for the patient from all ID treatmentfacilities. This section includes future appointments and future orders which are active, pending or scheduled. Future Appointments This section includes appointments that were scheduled to occur 6 months from the date of the Encounter, up to a maximum of 20 appointments. The data comes from all ID treatment facilities. Appointment Date/Time Appointment Type Appointme nt Facility Name Feb 04, 2025 08:00 AM AMBULATORY - NONE [facility] Feb 05, 2025 09:30 AM AMBULATORY - SURGERY [facility] Jun 26, 2025 08:30 AM AMBULATORY - NONE [facility] Jul 03, 2025 08:30 AM AMBULATORY NONE [facility] Active, Pending, and Scheduled Orders This section includes a listing of several types of active, pending, and scheduled orders, including clinic medications orders, diagnostic test orders, procedure orders and consult orders; where the start date of the order is 45 days before the date of the Encounter or 45 days after the date of theEncounter. The data comes from all ID treatment facilities. Test Date/Time Test Type Test Details Facility Name Dec 26, 2024 11:46 AM Consult Order COMMUNITY CARE-COLONOSCOPY [facility] Cons Principal Accounts Clerk's [facility] Social History: Smoking Status (Most current) and Tobacco Use (All prior to encounter date) This section includes the most current, and the historical, smoking and tobacco- related health factors from the ID facility where the Encounter took place. Current Smoking Status This section includes the most current smoking, or tobacco-related health factor, from the ID facility where the Encounter took place. Date/Time Current Smoking Status Richard villaseñor Mar 30, 2010 10:46 AM QUIT TOBACCO >7 YEARS AGO [facility] Advance Directives: All historical and current Section Date Range: From patient's date of to the date document was created. This section includes ALL of a patient's completed or amended [place] Advance and Rescinded Directives. The entries below indicate that a directive exists for the patient, but an actual copy is not included with this document. The data comes from all ID facilities. Date Advance Directives Provider Source May 21, 2020 ADVANCE DIRECTIVE DISCUSSION [facility] Mar 29, 2018 ADVANCE DIRECTIVE DISCUSSION [facility] Encounter Notes: All associated encounter notes This section contains the clinical notes associated to the Encounter. Date/Time Encounter Note(s) Provider Source January 22, 2025 10:21 AM PACT NOTE: LOCAL TITLE: PACT NURSE TELEPHONE NOTE (T) STANDARD TITLE: PACT NOTE DATE OF NOTE: JANUARY 22, 2025@10:21 ENTRY DATE: JANUARY 22, 2025@10:21:54 AUTHOR: MIGUEL MELVIN EXP COSIGNER: URGENCY: STATUS: COMPLETED PACT NURSE TELEPHONE NOTE (T) Has ADDENDA Date/Time of Contact: January@10:22 S: (Situation) Chief Complaint/purpose of todays visit: Fall, burning tongue syndrome B: (Background) Information from last visit, current tx, related medications: PMH: lumbar spondylosis, DLD, DM2, HTN, colonic polyps. 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 Carol tells chart writer he was told by his local dentist he has a condition called Burning Tongue Syndrome. Carol states for several years he has had burning on his tongue and never knew what it was. Carol states he was also told he has an infection in the roof of his mouth. Inquired what dentist prescribed. [place] states he was told to trial Biotene mouth wash, not prescribed antibiotics. states he has not purchased the mouth wash as of yet. [place] inquiring if ID has treatment for this condition. * also shared this morning he lost his balance and fell from a standing position. Denies hitting his head or LOC. states he has a cane and rollator. Encouraged use of DME's as states he has had falls in the past. [place] states the only injury he has is a scratch to his side. Reinforced falls prevention practices. R: (Recommendations) Plan of care/advice: Other : Including pact team for informational purposes Diagnosis being monitored or signs/symptoms: Time Spent: 5 minutes /vira/ MIGUEL MELVIN REGISTERED NURSE Signed: 01/22/2025 10:56 Receipt Acknowledged By: 01/22/2025 16:23 /vira/ NAMITA BASS PHYSICIAN 01/22/2025 11:08 /vira/ JENNIFER CUMMINGS LICENSED PRACTICAL NURSE 01/22/2025 ADDENDUM STATUS: COMPLETED Pt will need to purchase needed medications on his own. [facility]. /vira/ NAMITA BASS PHYSICIAN Signed: 01/22/2025 16:24 Receipt Acknowledged By: * AWAITING SIGNATURE * MIGUEL MELVIN KIMBERLY [facility]
--- OUTSIDE RECORDS SUMMARY | 2025-01-25 03:58 | XMS_ITS | Continuity of Care Document ---
Author Name [facility] Organization [facility] Care Team Providers Care Emts Name Role Phone [facility] Unavailable Unavailable Problems Combined list of problems from Department of Defense and [facility] Affairs facilities. It does not include entries that were removed or entered in error. Problem Status Onset Date Problem Type Date of Resolution Comments Source Bilateral carpal tunnel syndrome Active Condition [facility] Dermatophytosis of nail Active Condition [facility] Diabetes mellitus (SNOMED CT 27686579) Active Condition [facility] Diabetic peripheral neuropathy associated with type 2 diabetes mellitus Active Condition [facility] Diplopia Active Condition [facility] Essential hypertension (SNOMED CT 90647051) Active Condition [facility] Exposure to Potentially Hazardous Substance (SCT 944143526940747) Active Condition [facility] GERD * (ICD-9-CM 530.81) Active Condition [facility] Hyperlipidemia (SNOMED CT 43566104) Active Condition [facility] HYPERLIPIDEMIA NEC/NOS Active Condition [facility] Impotence of organic origin Active Condition [facility] Lumbar spondylosis Active Condition [facility] Obesity (SNOMED CT 307513559) Active Condition [facility] Screening for Malignant Neoplasms of colon Active Condition Jun 28 011 Entered By: NAMITA BASS Comment: clnscpy fall 2010. nml mucosa. int. hemorrhoids. rpt 2018Jul 2021 Entered By: NAMITA BASS Comment: 11/30/2021 - colonoscopy. 3 polyps (TA/hyperplas tic) rpt 3 years (2024) [facility] Sleep Apnea (ICD-9-CM 780.57/786.09) Active Condition [facility] Venous insufficiency of leg Active Condition [facility] Ingrowing nail * (ICD-9-CM 703.0) Inactive Condition 05/21/2015 [facility] Pain in joint involving ankle and foot Inactive Condition 05/21/2015 [facility] Tendonitis, Achilles (ICD-9-CM 726.71) Inactive Condition 05/21/2015 [facility] TOBACCO USE DISORDER Inactive Condition 11/08/2018 Mar 30, 2010 Entered By: ARBEN GONZALES Comment: occasional cigar [facility] Diagnosis: ICD-10-CM W19.XXXA Unspecified fall, initial encounter Active Diagnosis [facility] Diagnosis: ICD-10-CM E11.8 Type 2 diabetes mellitus with unspecified complications Active Diagnosis [facility] Diagnosis: ICD-10-CM M47.26 Other spondylosis with radiculopathy, lumbar region Active Diagnosis [facility] Diagnosis: ICD-10-CM E11.42 Type 2 diabetes mellitus with diabetic polyneuropathy Active Diagnosis [facility] Diagnosis: ICD-10-CM M54.16 Radiculopathy, lumbar region Active Diagnosis [facility] Diagnosis: ICD-10-CM M79.644 Pain in right finger(s) Active Diagnosis [facility] Diagnosis: ICD-10-CM M48.062 Spinal stenosis, lumbar region with neurogenic claudication Active Diagnosis [facility] Diagnosis: ICD-10-CM Z02.89 Encounter for other administrative examinations Active Diagnosis [facility] Diagnosis: ICD-10-CM R20.2 Paresthesia of skin Active Diagnosis [facility] Diagnosis: ICD-10-CM 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, left eye Active Diagnosis [facility] Diagnosis: ICD-10-CM L82.1 Other seborrheic keratosis Active Diagnosis [facility] Diagnosis: ICD-10-CM E11.9 Type 2 diabetes mellitus without complications Active Diagnosis [facility] Diagnosis: ICD-10-CM H53.2 Diplopia Active Diagnosis [facility] Diagnosis: ICD-10-CM Z71.9 Counseling, unspecified Active Diagnosis [facility] Medications Combined list of outpatient medications from Department of Defense and Veterans Affairs facilities.Medications provided include 1) outpatient medications from the last 15 months, and 2) patient-reported medications. Medication Details Route Status Patient Instructions Prescription Expires Prescription Number Last Dispense Date Ordering Provider Order Date Order Qty Source ASCORBIC ACID 500MG TAB TAKE TWO TABLETS BY MOUTH EVERY DAY ORAL ACTIVE VIJAY WALSH 2006 [facility] ASPIRIN 325MG TAB,EC TAKE ONE TABLET BY MOUTH EVERY DAY ORAL ACTIVE RAYMOND BASS 2019 [facility] ATORVASTATI N CA 80MG TAB TAKE ONE TABLET BY MOUTH AT BEDTIME ORAL SUSPEND ED 12/27/2025 [id number] 5 RAYMOND BASS L 2024 90 [facility] ATORVASTATI N CA 80MG TAB TAKE ONE TABLET BY MOUTH AT BEDTIME ORAL DISCONT INUED 12/26/2024 [id number] 5 RAYMOND BASS L 2023 90 [facility] ATORVASTATI N CA 80MG TAB TAKE ONE TABLET BY MOUTH AT BEDTIME ORAL DISCONT INUED 02/04/2024 [id number] 4 RAYMOND BASS 2022 90 [facility] CHLORTHALID ONE 25MG TAB TAKE ONE TABLET BY MOUTH EVERY DAY (WITH FOOD) ORAL SUSPEND ED 06/27/2025 [id number] 5 RAYMOND BASS L 2023 90 [facility] CHLORTHALID ONE 25MG TAB TAKE ONE TABLET BY MOUTH EVERY DAY (WITH FOOD) ORAL DISCONT INUED 07/29/2024 [id number] RAYMOND BASS 2022 90 [facility] CHOLECALCIF BARBARA 25MCG (1,000UNIT) TAB TAKE TWO TABLETS BY MOUTH EVERY DAY ORAL ACTIVE RAYMOND BASS 2012 [facility] CYANOCOBALA MIN 1000MCG TAB TAKE ONE TABLET BY MOUTH EVERY DAY ORAL ACTIVE PRICILLA ARREOLA 2017 [facility] EMPAGLIFLOZ IN 12.5MG/METF ORMIN 1000MG 24HR TAB,SA TAKE 2 TABLETS BY MOUTH EVERY MORNING ORAL SUSPEND ED 12/27/2025 [id number] 5 RAYMOND BASS 2024 180 [facility] EMPAGLIFLOZ IN 12.5MG/METF ORMIN 1000MG 24HR TAB,SA TAKE 2 TABLETS BY MOUTH EVERY MORNING ORAL DISCONT INUED 06/27/2025 [id number] 5 RAYMOND BASS 2023 180 [facility] EMPAGLIFLOZ IN 12.5MG/METF ORMIN 1000MG 24HR TAB,SA TAKE 2 TABLETS BY MOUTH EVERY MORNING ORAL DISCONT INUED 03/13/2025 [id number] FABIAN,REBEC CA JELENA 2023 180 [facility] EMPAGLIFLOZ IN 12.5MG/METF ORMIN 1000MG 24HR TAB,SA TAKE 2 TABLETS BY MOUTH EVERY MORNING FOR TYPE 2 DIABETES MELLITUS (REPLACE S INDIVIDU AL MEDICATI ONS) ORAL DISCONT INUED (EDIT) 12/02/2024 [id number] 4 FABIAN,REBEC CA JELENA 2023 60 [facility] EMPAGLIFLOZ IN 12.5MG/METF ORMIN 1000MG 24HR TAB,SA TAKE 2 TABLETS BY MOUTH EVERY MORNING FOR TYPE 2 DIABETES MELLITUS (REPLACE S INDIVIDU AL MEDICATI ONS) ORAL DISCONT INUED 07/29/2024 [id number] 4 FABIAN,REBEC CA JELENA 2022 60 [facility] GARLIC OIL CAP 1 CAP/TAB MOUTH EVERY DAY ORAL ACTIVE VIJAY WALSH 2006 [facility] HYDROPHILIC (EQV EUCERIN) CREAM,TOP APPLY A SUFFICIE NT AMOUNT EXTERNAL LY EVERY DAY NEEDED TO DRY SKIN TOPICA L ACTIVE 08/21/2025 [id number] 5 RAYMOND BASS LY L 2024 454 [facility] HYDROPHILIC (EQV EUCERIN) CREAM,TOP APPLY A SUFFICIE NT AMOUNT EXTERNAL LY EVERY DAY NEEDED TO DRY SKIN TOPICA L DISCONT INUED 08/21/2025 [id number] 4 Shameka CHENG 2023 454 [facility] HYDROPHILIC (EQV EUCERIN) CREAM,TOP APPLY A SUFFICIE NT AMOUNT EXTERNAL LY EVERY DAY NEEDED TO DRY SKIN TOPICA L DISCONT INUED 07/29/2024 [id number] 4 Shameka CHENGNIJUAN J 2022 454 [facility] ICOSAPENT ETHYL 1GM CAP TAKE TWO CAPSULES BY MOUTH TWICE A DAY WITH MEALS *SWALLOW CAPSULES WHOLE* ORAL ACTIVE 08/11/2025 [id number] 5 FABIAN,REBEC CA JELENA 2024 360 [facility] ICOSAPENT ETHYL 1GM CAP TAKE TWO CAPSULES BY MOUTH TWICE A DAY WITH MEALS *SWALLOW CAPSULES WHOLE* ORAL DISCONT INUED 05/22/2025 [id number] 4 FABIAN,REBEC CA JELENA 2023 360 [facility] ICOSAPENT ETHYL 1GM CAP TAKE TWO CAPSULES BY MOUTH TWICE A DAY WITH MEALS *SWALLOW CAPSULES WHOLE* ORAL DISCONT INUED 04/19/2024 [id number] 4 FABIAN,REBEC CA JELENA 2022 360 [facility] INSULIN SYRINGE 1ML 31G 8MM USE SYRINGE SUPPLY ITEM TWICE A DAY FOR INSULIN INJECTIO S NOT APPLIC ABLE 03/03/2024 [id number] 4 RAYMOND BASS 2022 200 [facility] INSULIN,ASP ART,HUMAN 100U/ML,NOV OLOG,FLEXPE N,3ML INJECT 5 UNITS SUBCUTAN EOUSLY WITH BREAKFAS T SUBCUT ANEOUS ACTIVE Celestino LYLES EBECCA JELENA 2021 EDILMA [facility]AU[facility] INSULIN,GLA RGINE,HUMAN 100 UNT/ML INJ INJECT 60 UNITS SUBCUTAN EOUSLY TWICE A DAY SUBCUT ANEOUS ACTIVE 06/27/2025 [id number] RAYMOND BASS 2024 10 [facility] INSULIN,GLA RGINE-YFGN 100UNIT/ML INJ INJECT 60 UNITS SUBCUTAN EOUSLY TWICE A DAY SUBCUT ANEOUS DISCONT INUED 06/27/2025 [id number] 4 RAYMOND BASS L 2023 10 [facility] INSULIN,GLA RGINE-YFGN 100UNIT/ML INJ INJECT 60 UNITS SUBCUTAN EOUSLY TWICE A DAY SUBCUT ANEOUS DISCONT INUED 12/26/2024 [id number] 4 RAYMOND BASS 2023 10 [facility] INSULIN,GLA RGINE-YFGN 100UNIT/ML INJ INJECT 60 UNITS SUBCUTAN EOUSLY TWICE A DAY SUBCUT ANEOUS DISCONT INUED 06/10/2024 [id number] 4 FABIANANGELASUAD MILLER JELENA 2022 10 [facility] LIDOCAINE 5% PATCH APPLY THREE PATCHES TO CLEAN DRY SKIN EVERY DAY FOR BACK PAIN . PATCH SHOULD REMAIN ON SKIN NO LONGER THAN 12 HOURS IN ANY 24 HOUR PERIOD. TRANSD ERMAL ACTIVE 06/27/2025 [id number] RAYMOND BASS L 2023 270 [facility] LISINOPRIL 40MG TAB TAKE ONE TABLET BY MOUTH EVERY DAY ORAL SUSPEND ED 12/27/2025 [id number] 5 RAYMOND BASS L 2024 90 [facility] LISINOPRIL 40MG TAB TAKE ONE TABLET BY MOUTH EVERY DAY ORAL DISCONT INUED 12/26/2024 [id number] RAYMOND BASS L 2023 90 [facility] METOPROLOL SUCCINATE 100MG TAB,SA TAKE ONE TABLET BY MOUTH EVERY DAY FOR HIGH BLOOD PRESSURE ORAL ACTIVE 12/27/2025 [id number] 5 RAYMOND BASS L 2024 90 [facility] METOPROLOL SUCCINATE 100MG TAB,SA TAKE ONE TABLET BY MOUTH EVERY DAY FOR HIGH BLOOD PRESSURE ORAL DISCONT INUED 06/27/2025 [id number] 5 RAYMOND BASS L 2023 90 [facility] METOPROLOL SUCCINATE 100MG TAB,SA TAKE ONE TABLET BY MOUTH EVERY DAY FOR BLOOD PRESSURE THIS REPLACES ATENOLOL ORAL DISCONT INUED 12/18/2024 [id number] RAYMOND BASS L 2023 90 [facility] METOPROLOL SUCCINATE 100MG TAB,SA TAKE ONE TABLET BY MOUTH EVERY DAY FOR BLOOD PRESSURE THIS REPLACES ATENOLOL ORAL DISCONT INUED 06/14/2024 [id number] 4 RAYMOND BASS L 2022 90 [facility] OMEPRAZOLE 20MG CAP,EC TAKE ONE CAPSULE BY MOUTH EVERY MORNING, ON AN EMPTY STOMACH ORAL ACTIVE 06/27/2025 [id number] 5 SHELIARAYMOND 2024 90 [facility] OMEPRAZOLE 20MG CAP,EC TAKE ONE CAPSULE BY MOUTH EVERY MORNING, ON AN EMPTY STOMACH ORAL DISCONT INUED 03/16/2025 [id number] 4 SHELIARAYMOND L 2023 90 [facility] OMEPRAZOLE 20MG CAP,EC TAKE ONE CAPSULE BY MOUTH EVERY MORNING, ON AN EMPTY STOMACH ORAL DISCONT INUED 10/18/2024 [id number] 4 SHELIARAYMOND FLORES 2023 90 [facility] PEG-3350/EL ECTROLYTES (EQV-MOVIPR EP) PWDR TAKE BEFORE PROCEDUR E BY MOUTH ONE TIME FOR EMPTYING OF THE BOWEL DIRECTED ON GI BOWEL PREP INSTRUCT ION SHEET ORAL ACTIVE 01/25/2025 [id number] RAYMOND BASS 2024 1 [facility] PREGABALIN 150MG CAP,ORAL TAKE ONE CAPSULE BY MOUTH TWICE A DAY FOR NERVE PAIN ORAL SUSPEND ED 06/21/2025 [id number] RAYMOND BASS 2024 60 [facility] PREGABALIN 150MG CAP,ORAL TAKE ONE CAPSULE BY MOUTH TWICE A DAY FOR NERVE PAIN ORAL DISCONT INUED 12/27/2024 [id number] RAYMOND BASS 2023 60 [facility] PREGABALIN 150MG CAP,ORAL TAKE ONE CAPSULE BY MOUTH TWICE A DAY FOR NERVE PAIN ORAL DISCONT INUED 10/26/2024 [id number] 4 RAYMOND BASS 2023 60 [facility] PREGABALIN 150MG CAP,ORAL TAKE ONE CAPSULE BY MOUTH TWICE A DAY FOR NERVE PAIN ORAL 04/07/2024 [id number] RAYMOND BASS 2023 60 [facility] PSYLLIUM SUGAR FREE PWDR,ORAL STIR 1 ROUNDED TABLESPO ONFUL IN 8 OUNCES OF WATER OR OTHER LIQUID BY MOUTH EVERY DAY NEEDED FOR REGULAR BOWELS ORAL ACTIVE 06/27/2025 [id number] 5 SHELIARAYMOND 2023 600 [facility] PSYLLIUM SUGAR FREE PWDR,ORAL STIR 1 ROUNDED TABLESPO ONFUL IN 8 OUNCES OF WATER OR OTHER LIQUID BY MOUTH EVERY DAY NEEDED FOR REGULAR BOWELS ORAL DISCONT INUED 10/10/2024 [id number] 4 FABIAN,REBEC CA JELENA 2023 600 [facility] SEMAGLUTIDE 2MG/0.75ML INJ,SOLN,PE N,3ML INJECT 2MG SUBCUTAN EOUSLY EVERY WEEK FOR TYPE 2 DIABETES MELLITUS FOR DIABETES AND BLOOD SUGAR CONTROL. KEEP REFRIGER ATED, HOWEVER, MAY BE KEPT AT ROOM TEMPERAT URE FOR UP TO 56 DAYS SUBCUT ANEOUS ACTIVE 12/27/2025 [id number] 5 RAYMOND BASS 2024 3 [facility] SEMAGLUTIDE 2MG/0.75ML INJ,SOLN,PE N,3ML INJECT 2MG SUBCUTAN EOUSLY EVERY WEEK FOR TYPE 2 DIABETES MELLITUS FOR DIABETES AND BLOOD SUGAR CONTROL. KEEP REFRIGER ATED, HOWEVER, MAY BE KEPT AT ROOM TEMPERAT URE FOR UP TO 56 DAYS SUBCUT ANEOUS DISCONT INUED 06/27/2025 [id number] 5 SHEILARAYMOND FLORES 2023 3 [facility] SEMAGLUTIDE 2MG/0.75ML INJ,SOLN,PE N,3ML INJECT 2MG SUBCUTAN EOUSLY EVERY WEEK FOR TYPE 2 DIABETES MELLITUS FOR DIABETES AND BLOOD SUGAR CONTROL. KEEP REFRIGER ATED, HOWEVER, MAY BE KEPT AT ROOM TEMPERAT URE FOR UP TO 56 DAYS SUBCUT ANEOUS DISCONT INUED 12/26/2024 [id number] RAYMOND BASS 2023 3 [facility] TAMSULOSIN HCL 0.4MG CAP TAKE ONE CAPSULE BY MOUTH AT BEDTIME FOR ENLARGED PROSTATE ORAL SUSPEND ED 11/20/2025 [id number] 5 RAYMOND BASS 2024 90 [facility] TAMSULOSIN HCL 0.4MG CAP TAKE ONE CAPSULE BY MOUTH AT BEDTIME FOR ENLARGED PROSTATE ORAL DISCONT INUED 04/27/2025 [id number] 4 RAYMOND BASS L 2023 90 [facility] TAMSULOSIN HCL 0.4MG CAP TAKE ONE CAPSULE BY MOUTH AT BEDTIME FOR ENLARGED PROSTATE ORAL DISCONT INUED 11/17/2024 [id number] 4 SHELIARAYMOND L 2023 90 [facility] TERBINAFINE HCL 250MG TAB TAKE ONE TABLET BY MOUTH EVERY DAY FOR FUNGAL DISEASE OF THE NAILS ORAL 02/03/2024 [id number] 4 Shameka CHENG 2023 45 [facility] VITAMIN E 400UNT CAP TAKE 1 CAPSULE BY MOUTH EVERY DAY ORAL ACTIVE VIJAY WALSH 2006 [facility] Allergies, Adverse Reactions, Alerts Combined list of allergies from Department of Defense and [facility] facilities. It does not include entries that were removed or entered in error. Substance Category Reaction Severity Reaction type Status Date Reported Comments Source PENICILLIN Propensity to adverse reactions to drug (finding) Urticaria active 7 [facility] PENICILLIN Propensity to adverse reactions to drug (finding) Eruption active 8 [facility] Immunizations Combined list of available immunizations from the Department of Defense and Veterans Affairs facilities. Immunization Series Date Given Administered By Site Reaction Lot Number CVX Code Drug Managed Care Analyst Status Comments Source COVID-19 (CellPhire), MRNA, LNP-S, PF, DANA-SUCROSE, 30 MCG/0.3 ML (AGES 12+ YEARS) 2023 BALBINA CUMMINGSN L LEFT DELTO ID [id number] 309 complet ed [facility] [place] [facility] [place], [facility] Y CB INFLUENZA, HIGH-DOSE, TRIVALENT, PF 2023 ZOILABALBINA EEN L RIGHT DELTO ID [id number] A 135 complet ed [facility] [place] [facility] [place], [facility] COVID-19 (PFIZER), MRNA, LNP-S, PF, DANA-SUCROSE, 30 MCG/0.3 ML (AGES 12+ YEARS) 1 2022 BALBINA CUMMINGS EEN L RIGHT DELTO ID [id number] 309 complet ed [facility] [place] [facility] [place], [facility] INFLUENZA, HIGH-DOSE, QUADRIVALENT 2022 BALBINA CUMMINGS LEFT DELTO ID [id number] A 197 complet ed [facility] [place] [facility] [place], [facility] INFLUENZA VACCINE, QUADRIVALENT, ADJUVANTED 2021 205 complet ed [facility] INFLUENZA VACCINE, QUADRIVALENT, ADJUVANTED 2020 205 complet ed [facility] COVID-19 (PFIZER), MRNA, LNP-S, PF, 30 MCG/0.3 ML DOSE 2 2020 208 complet ed PFR; [id number]; 1 [facility] COVID-19 (PFIZER), MRNA, LNP-S, PF, 30 MCG/0.3 ML DOSE 1 2020 208 complet ed PFR; [id number]; 1 [facility] INFLUENZA, HIGH-DOSE, QUADRIVALENT 2019 197 complet ed [facility] INFLUENZA, TRIVALENT, ADJUVANTED 2018 168 complet ed [facility] ZOSTER RECOMBINANT 2 2018 187 complet ed [facility] INFLUENZA, INJECTABLE, QUADRIVALENT, PRESERVATIVE FREE 2017 150 complet ed [facility] ZOSTER RECOMBINANT 2017 187 complet ed [facility] PNEUMOCOCCAL POLYSACCHARID E [id number] 2017 33 complet ed [facility] INFLUENZA, HIGH DOSE SEASONAL 2016 135 complet ed [facility] TD (ADULT), 5 LF TETANUS TOXOID, PRESERVATIVE FREE, ADSORBED 2016 113 complet ed [facility] PNEUMOCOCCAL CONJUGATE PCV 13 2016 133 complet ed [facility] INFLUENZA, UNSPECIFIED FORMULATION 2008 88 complet ed [facility] PNEUMOCOCCAL, UNSPECIFIED FORMULATION 2006 109 complet ed [facility] Results Combined list of recent chemistry, hematology and other laboratory results from Department of Defense and Veterans Affairs, ranging from 15 months to all on record, depending upon the facility. Order Name Results Value Reference Range Date Interpretation Specimen Comments Source HEMOGLOBI N A1C HEMOGLOBIN A1C/HEMOGLO BIN.TOTAL IN BLOOD 7.6 3.6 - 5.7 12/19 H Specimen Type: BLOOD Comment: Values obtained from A1C measurement s can vary. For typical A1C assays, a reported value of 7.0 could actually be between 6.72 and 7.28 if measured by a reference method. A reported value of 9.0 could actually be between 8.73 and 9.27. Ref: http://www. ngsp.org/[place] Pdata.asp Ordering Provider: NAMITA BASS Report Released Date/Time: Dec 18, 2024 04:22 PM Reporting Lab: [place] [phone] Performing Lab: [place] [phone] [facility] TSH THYROTROPIN [UNITS/VOLU ME] IN SERUM OR PLASMA BY DETECTION LIMIT <= 0.005 MIU/L 0.917 u[IU]/ mL 0.350 - 4.940 12/19 Specimen Type: PLASMA Comment: GLUCOSE The ADA [...] Dec 18, 2024 04:22 PM Reporting Lab: [address] [phone] Performing Lab: [place] [address] [facility] LIPID PROFILE CHOLESTEROL [MASS/VOLUM E] IN SERUM OR PLASMA 148 mg/dL 0 - 199 12/19 Specimen Type: PLASMA Comment: GLUCOSE The ADA [...] Dec 18, 2024 04:22 PM Reporting Lab: [address] [address] Performing Lab: [place] [phone] [facility] LIPID PROFILE CHOLESTEROL IN LDL [MASS/VOLUM E] IN SERUM OR PLASMA BY DIRECT ASSAY 58 mg/dL 0 - 99 12/19 Specimen Type: PLASMA Comment: GLUCOSE The ADA [...] Dec 18, 2024 04:22 PM Reporting Lab: [address] [phone] Performing Lab: [address] [address] [facility] LIPID PROFILE CHOLESTEROL IN HDL [MASS/VOLUM E] IN SERUM OR PLASMA 24 mg/dL 40 12/19 L Specimen Type: PLASMA Comment: GLUCOSE The ADA [...] Dec 18, 2024 04:22 PM Reporting Lab: [address] [address] Performing Lab: [place] [phone] [facility] LIPID PROFILE TRIGLYCERID E [MASS/VOLUM E] IN SERUM OR PLASMA 352 mg/dL 0 - 149 12/19 H Specimen Type: PLASMA Comment: GLUCOSE The ADA [...] Dec 18, 2024 04:22 PM Reporting Lab: [place] [phone] Performing Lab: [place] [phone] [facility] COMPREHEN SIVE METABOLIC PANEL ALBUMIN [MASS/VOLUM E] IN SERUM OR PLASMA 3.9 g/dL 3.5 - 4.8 12/19 Specimen Type: PLASMA Comment: GLUCOSE The ADA [...] Dec 18, 2024 04:22 PM Reporting Lab: [place] [phone] Performing Lab: [place] [phone] [facility] COMPREHEN SIVE METABOLIC PANEL ALKALINE PHOSPHATASE [ENZYMATIC ACTIVITY/VO LUME] IN SERUM OR PLASMA 38 U/L 40 - 150 12/19 L Specimen Type: PLASMA Comment: GLUCOSE The ADA [...] Dec 18, 2024 04:22 PM Reporting Lab: [place] [phone] Performing Lab: [place] [phone] [address] COMPREHEN SIVE METABOLIC PANEL ALANINE AMINOTRANSF ERASE [ENZYMATIC ACTIVITY/VO LUME] IN SERUM OR PLASMA 28 U/L 0 - 55 12/19 Specimen Type: PLASMA Comment: GLUCOSE The ADA [...] Dec 18, 2024 04:22 PM Reporting Lab: [address] [address] Performing Lab: [place] [phone] [facility] COMPREHEN SIVE METABOLIC PANEL ASPARTATE AMINOTRANSF ERASE [ENZYMATIC ACTIVITY/VO LUME] IN SERUM OR PLASMA 19 U/L 10 - 40 12/19 Specimen Type: PLASMA Comment: GLUCOSE The ADA [...] Dec 18, 2024 04:22 PM Reporting Lab: [address] [phone] Performing Lab: [place] [phone] [facility] UREA NITROGEN [MASS/VOLUM E] IN SERUM OR PLASMA 28.3 mg/dL 8.4 - 25.7 12/19 H Specimen Type: PLASMA Comment: GLUCOSE The ADA [...] Dec 18, 2024 04:22 PM Reporting Lab: [address] [address] Performing Lab: [address] [address] [facility] COMPREHEN SIVE METABOLIC PANEL CALCIUM [MASS/VOLUM E] IN SERUM OR PLASMA 8.8 mg/dL 8.6 - 10.3 12/19 Specimen Type: PLASMA Comment: GLUCOSE The ADA [...] Dec 18, 2024 04:22 PM Reporting Lab: [place] [phone] Performing Lab: [place] [phone] [facility] COMPREHEN SIVE METABOLIC PANEL CREATININE [MASS/VOLUM E] IN SERUM OR PLASMA 1.4 mg/dL 0.7 - 1.3 12/19 H Specimen Type: PLASMA Comment: GLUCOSE The ADA [...] Dec 18, 2024 04:22 PM Reporting Lab: [address] [address] Performing Lab: [place] [phone] [facility] COMPREHEN SIVE METABOLIC PANEL CARBON DIOXIDE, TOTAL [MOLES/VOLU ME] IN SERUM OR PLASMA 25 mmol/L 22 - 30 12/19 Specimen Type: PLASMA Comment: GLUCOSE The ADA [...] Dec 18, 2024 04:22 PM Reporting Lab: [place] [phone] Performing Lab: [place] [phone] [facility] COMPREHEN SIVE METABOLIC PANEL GLUCOSE [MASS/VOLUM E] IN SERUM OR PLASMA 173 mg/dL 74 - 99 12/19 H Specimen Type: PLASMA Comment: GLUCOSE The ADA [...] Dec 18, 2024 04:22 PM Reporting Lab: [address] [address] Performing Lab: [place] [phone] [facility] COMPREHEN SIVE METABOLIC PANEL PROTEIN [MASS/VOLUM E] IN SERUM OR PLASMA 7.4 g/dL 6.4 - 8.3 12/19 Specimen Type: PLASMA Comment: GLUCOSE The ADA [...] Dec 18, 2024 04:22 PM Reporting Lab: [address] [address] Performing Lab: [place] [phone] [facility] COMPREHEN SIVE METABOLIC PANEL SODIUM [MOLES/VOLU ME] IN SERUM OR PLASMA 143 mmol/L 134 - 144 12/19 Specimen Type: PLASMA Comment: GLUCOSE The ADA [...] Dec 18, 2024 04:22 PM Reporting Lab: [address] [address] Performing Lab: [place] [phone] [facility] COMPREHEN SIVE METABOLIC PANEL CHLORIDE [MOLES/VOLU ME] IN SERUM OR PLASMA 110 mmol/L 99 - 112 12/19 Specimen Type: PLASMA Comment: GLUCOSE The ADA [...] Dec 18, 2024 04:22 PM Reporting Lab: [address] [address] Performing Lab: [place] [phone] [facility] COMPREHEN SIVE METABOLIC PANEL BILIRUBIN.T OTAL [MASS/VOLUM E] IN SERUM OR PLASMA 0.5 mg/dL 0.2 - 1.2 12/19 Specimen Type: PLASMA Comment: GLUCOSE The ADA [...] Dec 18, 2024 04:22 PM Reporting Lab: [place] [phone] Performing Lab: [place] [phone] [facility] COMPREHEN SIVE METABOLIC PANEL POTASSIUM [MOLES/VOLU ME] IN SERUM OR PLASMA 4.3 mmol/L 3.5 - 5.1 12/19 Specimen Type: PLASMA Comment: GLUCOSE The ADA [...] Dec 18, 2024 04:22 PM Reporting Lab: [address] [phone] Performing Lab: [address] [address] [facility] COMPREHEN SIVE METABOLIC PANEL ANION GAP IN SERUM OR PLASMA 12 mmol/L 10 - 20 12/19 Specimen Type: PLASMA Comment: GLUCOSE The ADA [...] Dec 18, 2024 04:22 PM Reporting Lab: [address] [phone] Performing Lab: [address] [address] [facility] COMPREHEN SIVE METABOLIC PANEL GLOMERULAR FILTRATION RATE/1.73 SQ M.PREDICTED [VOLUME RATE/AREA] IN SERUM, PLASMA OR BLOOD BY CREATININE- BASED FORMULA (CKD-EPI 2020) 52 12/19 Specimen Type: PLASMA Comment: GLUCOSE The ADA [...] Dec 18, 2024 04:22 PM Reporting Lab: [place] [phone] Performing Lab: [place] [phone] [facility] CBC LEUKOCYTES [#/VOLUME] IN BLOOD BY AUTOMATED COUNT 6.2 10*3/u L 3.6 - 11.0 12/19 Specimen Type: BLOOD No comment entered. Ordering Provider: NAMITA BASS Report Released Date/Time: Dec 18, 2024 04:22 PM Reporting Lab: [place] [phone] Performing Lab: [place] [phone] [facility] CBC ERYTHROCYTE S [#/VOLUME] IN BLOOD BY AUTOMATED COUNT 5.20 10*6/u L 4.47 - 5.83 12/19 Specimen Type: BLOOD No comment entered. Ordering Provider: NAMITA BASS Report Released Date/Time: Dec 18, 2024 04:22 PM Reporting Lab: [place] [phone] Performing Lab: [place] [phone] [facility] CBC HEMOGLOBIN [MASS/VOLUM E] IN BLOOD 15.9 g/dL 13.6 - 17.4 12/19 Specimen Type: BLOOD No comment entered. Ordering Provider: NAMITA BASS Report Released Date/Time: Dec 18, 2024 04:22 PM Reporting Lab: [place] [phone] Performing Lab: [place] [phone] [facility] CBC HEMATOCRIT [VOLUME FRACTION] OF BLOOD BY AUTOMATED COUNT 46.5 40.0 - 51.0 12/19 Specimen Type: BLOOD No comment entered. Ordering Provider: NAMITA BASS Report Released Date/Time: Dec 18, 2024 04:22 PM Reporting Lab: [address] [phone] Performing Lab: [place] [phone] [facility] CBC MCV [ENTITIC VOLUME] BY AUTOMATED COUNT 89.4 fL 80.0 - 96.0 12/19 Specimen Type: BLOOD No comment entered. Ordering Provider: NAMITA BASS Report Released Date/Time: Dec 18, 2024 04:22 PM Reporting Lab: [address] [address] Performing Lab: [place] [phone] [facility] CBC MCH [ENTITIC MASS] BY AUTOMATED COUNT 30.7 pg 27.0 - 31.0 12/19 Specimen Type: BLOOD No comment entered. Ordering Provider: NAMITA BASS Report Released Date/Time: Dec 18, 2024 04:22 PM Reporting Lab: [address] [address] Performing Lab: [place] [phone] [facility] CBC MCHC [MASS/VOLUM E] BY AUTOMATED COUNT 34.3 g/dL 31.5 - 36.5 12/19 Specimen Type: BLOOD No comment entered. Ordering Provider: NAMITA BASS Report Released Date/Time: Dec 18, 2024 04:22 PM Reporting Lab: [address] [address] Performing Lab: [place] [phone] [facility] CBC PLATELETS [#/VOLUME] IN BLOOD BY AUTOMATED COUNT 113 10*3/u L 150 - 400 12/19 L Specimen Type: BLOOD No comment entered. Ordering Provider: NAMITA BASS Report Released Date/Time: Dec 18, 2024 04:22 PM Reporting Lab: [place] [phone] Performing Lab: [address] [address] [facility] CBC LYMPHOCYTES /100 LEUKOCYTES IN BLOOD BY AUTOMATED COUNT 31.7 21.0 - 51.0 12/19 Specimen Type: BLOOD No comment entered. Ordering Provider: NAMITA BASS Report Released Date/Time: Dec 18, 2024 04:22 PM Reporting Lab: [address] [address] Performing Lab: [place] [phone] [facility] CBC MONOCYTES/1 00 LEUKOCYTES IN BLOOD BY AUTOMATED COUNT 7.6 4.0 - 8.0 12/19 Specimen Type: BLOOD No comment entered. Ordering Provider: NAMITA BASS Report Released Date/Time: Dec 18, 2024 04:22 PM Reporting Lab: [address] [address] Performing Lab: [place] [phone] [facility] CBC NUCLEATED ERYTHROCYTE S/100 LEUKOCYTES [RATIO] IN BLOOD BY MANUAL COUNT 0.3 /100{W BCs} 12/19 Specimen Type: BLOOD No comment entered. Ordering Provider: NAMITA BASS Report Released Date/Time: Dec 18, 2024 04:22 PM Reporting Lab: [address] [address] Performing Lab: [place] [phone] [facility] CBC ERYTHROCYTE DISTRIBUTIO N WIDTH [RATIO] BY AUTOMATED COUNT 15.3 11.2 - 15.8 12/19 Specimen Type: BLOOD No comment entered. Ordering Provider: NAMITA BASS Report Released Date/Time: Dec 18, 2024 04:22 PM Reporting Lab: [address] [address] Performing Lab: [place] [phone] [facility] CBC NEUTROPHILS /100 LEUKOCYTES IN BLOOD BY AUTOMATED COUNT 56.5 54.0 - 78.0 12/19 Specimen Type: BLOOD No comment entered. Ordering Provider: NAMITA BASS Report Released Date/Time: Dec 18, 2024 04:22 PM Reporting Lab: [address] [address] Performing Lab: [address] [address] [facility] CBC EOSINOPHILS /100 LEUKOCYTES IN BLOOD BY AUTOMATED COUNT 3.5 0.0 - 3.0 12/19 H Specimen Type: BLOOD No comment entered. Ordering Provider: NAMITA BASS Report Released Date/Time: Dec 18, 2024 04:22 PM Reporting Lab: [address] [address] Performing Lab: [address] [address] [facility] CBC BASOPHILS/1 00 LEUKOCYTES IN BLOOD BY AUTOMATED COUNT 0.7 0.0 - 3.0 12/19 Specimen Type: BLOOD No comment entered. Ordering Provider: NAMITA BASS Report Released Date/Time: Dec 18, 2024 04:22 PM Reporting Lab: [address] [address] Performing Lab: [address] [address] [facility] CBC LYMPHOCYTES [#/VOLUME] IN BLOOD BY AUTOMATED COUNT 2.0 10*3/u L 0.8 - 5.0 12/19 Specimen Type: BLOOD No comment entered. Ordering Provider: NAMITA BASS Report Released Date/Time: Dec 18, 2024 04:22 PM Reporting Lab: [address] [address] Performing Lab: [address] [address] [facility] CBC NEUTROPHILS [#/VOLUME] IN BLOOD 3.5 10*3/u L 1.9 - 8.6 12/19 Specimen Type: BLOOD No comment entered. Ordering Provider: NAMITA BASS Report Released Date/Time: Dec 18, 2024 04:22 PM Reporting Lab: [address] [address] Performing Lab: [address] [address] [facility] CBC BASOPHILS [#/VOLUME] IN BLOOD BY AUTOMATED COUNT 0.0 10*3/u L 0.0 - 0.3 12/19 Specimen Type: BLOOD No comment entered. Ordering Provider: NAMITA BASS Report Released Date/Time: Dec 18, 2024 04:22 PM Reporting Lab: [address] [address] Performing Lab: [address] [address] [facility] CBC MONOCYTES [#/VOLUME] IN BLOOD BY AUTOMATED COUNT 0.5 10*3/u L 0.1 - 0.9 12/19 Specimen Type: BLOOD No comment entered. Ordering Provider: NAMITA BASS Report Released Date/Time: Dec 18, 2024 04:22 PM Reporting Lab: [address] [address] Performing Lab: [place] [phone] [facility] CBC EOSINOPHILS [#/VOLUME] IN BLOOD BY AUTOMATED COUNT 0.2 10*3/u L 0.0 - 0.3 12/19 Specimen Type: BLOOD No comment entered. Ordering Provider: NAMITA BASS Report Released Date/Time: Dec 18, 2024 04:22 PM Reporting Lab: [address] [address] Performing Lab: [place] [phone] [facility] CBC PLATELET MEAN VOLUME [ENTITIC VOLUME] IN BLOOD BY AUTOMATED COUNT 10.5 fL 7.4 - 11.4 12/19 Specimen Type: BLOOD No comment entered. Ordering Provider: NAMITA BASS Report Released Date/Time: Dec 18, 2024 04:22 PM Reporting Lab: [address] [address] Performing Lab: [place] [phone] [facility] POC GLUCOSE GLUCOSE [MASS/VOLUM E] IN BLOOD BY AUTOMATED TEST STRIP 139 mg/dL 74 - 106 10/30 H Specimen Type: BLOOD No comment entered. Ordering Provider: NAMITA BASS Report Released Date/Time: Oct 30, 2024 09:18 AM Reporting Lab: [address] [address] Performing Lab: [place] [phone] [facility] HEMOGLOBI N A1C HEMOGLOBIN A1C/HEMOGLO BIN.TOTAL IN BLOOD 7.3 3.6 - 5.7 06/19 H Specimen Type: BLOOD Comment: Values obtained from A1C measurement s can vary. For typical A1C assays, a reported value of 7.0 could actually be between 6.72 and 7.28 if measured by a reference method. A reported value of 9.0 could actually be between 8.73 and 9.27. Ref: http://www. ngsp.org/[place] Pdata.asp Ordering Provider: NAMITA BASS Report Released Date/Time: Dec 26, 2023 10:17 AM Reporting Lab: [place] [phone] Performing Lab: [place] [phone] [facility] LIPID PROFILE CHOLESTEROL [MASS/VOLUM E] IN SERUM OR PLASMA 114 mg/dL <199 - 199 06/19 Specimen Type: PLASMA Comment: DLDLREF RANGE: NEAR [...] Dec 26, 2023 10:17 AM Reporting Lab: [address] [address] Performing Lab: [place] [phone] [facility] LIPID PROFILE CHOLESTEROL IN LDL [MASS/VOLUM E] IN SERUM OR PLASMA BY DIRECT ASSAY 40 mg/dL <99 - 99 06/19 Specimen Type: PLASMA Comment: DLDLREF RANGE: NEAR [...] Dec 26, 2023 10:17 AM Reporting Lab: [place] [phone] Performing Lab: [place] [phone] [place] [address] LIPID PROFILE CHOLESTEROL IN HDL [MASS/VOLUM E] IN SERUM OR PLASMA 20 mg/dL 60 06/19 L Specimen Type: PLASMA Comment: DLDLREF RANGE: NEAR [...] Dec 26, 2023 10:17 AM Reporting Lab: [place] [phone] Performing Lab: [place] [phone] LIPID PROFILE TRIGLYCERID E [MASS/VOLUM E] IN SERUM OR PLASMA 309 mg/dL <149 - 149 06/19 H Specimen Type: PLASMA Comment: DLDLREF RANGE: NEAR [...] Dec 26, 2023 10:17 AM Reporting Lab: [place] [phone] Performing Lab: [place] [phone] TSH THYROTROPIN [UNITS/VOLU ME] IN SERUM OR PLASMA BY DETECTION LIMIT <= 0.005 MIU/L 0.982 u[IU]/ mL 0.360 - 4.500 06/19 Specimen Type: PLASMA Comment: DLDLREF RANGE: NEAR [...] Dec 26, 2023 10:17 AM Reporting Lab: [place] [phone] Performing Lab: [place] [phone] COMPREHEN SIVE METABOLIC PANEL ALBUMIN [MASS/VOLUM E] IN SERUM OR PLASMA 3.8 g/dL 3.2 - 4.6 06/19 Specimen Type: PLASMA Comment: DLDLREF RANGE: NEAR [...] Dec 26, 2023 10:17 AM Reporting Lab: [place] [phone] Performing Lab: [address] COMPREHEN SIVE METABOLIC PANEL ALKALINE PHOSPHATASE [ENZYMATIC ACTIVITY/VO LUME] IN SERUM OR PLASMA 40 U/L 40 - 150 06/19 Specimen Type: PLASMA Comment: DLDLREF RANGE: NEAR [...] Dec 26, 2023 10:17 AM Reporting Lab: [place] [phone] Performing Lab: [place] [phone] COMPREHEN SIVE METABOLIC PANEL ALANINE AMINOTRANSF ERASE [ENZYMATIC ACTIVITY/VO LUME] IN SERUM OR PLASMA 30 U/L <55 - 55 06/19 Specimen Type: PLASMA Comment: DLDLREF RANGE: NEAR [...] Dec 26, 2023 10:17 AM Reporting Lab: [place] [phone] Performing Lab: [place] [phone] [facility] COMPREH SIVE METABOLIC PANEL ASPARTATE AMINOTRANSF ERASE [ENZYMATIC ACTIVITY/VO LUME] IN SERUM OR PLASMA 26 U/L 5 - 34 06/19 Specimen Type: PLASMA Comment: DLDLREF RANGE: NEAR [...] Dec 26, 2023 10:17 AM Reporting Lab: [place] [address] Performing Lab: [address] COMPREHEN SIVE METABOLIC PANEL UREA NITROGEN [MASS/VOLUM E] IN SERUM OR PLASMA 18 mg/dL 8.4 - 25.7 06/19 Specimen Type: PLASMA Comment: DLDLREF RANGE: NEAR [...] Dec 26, 2023 10:17 AM Reporting Lab: [place] [phone] Performing Lab: [address] COMPREHEN SIVE METABOLIC PANEL CALCIUM [MASS/VOLUM E] IN SERUM OR PLASMA 8.9 mg/dL 8.8 - 10.0 06/19 Specimen Type: PLASMA Comment: DLDLREF RANGE: NEAR [...] Dec 26, 2023 10:17 AM Reporting Lab: [place] [phone] Performing Lab: [place] [phone] [place] [address] COMPREHEN SIVE METABOLIC PANEL CREATININE [MASS/VOLUM E] IN SERUM OR PLASMA 1.3 mg/dL 0.72 - 1.25 06/19 H Specimen Type: PLASMA Comment: DLDLREF RANGE: NEAR [...] Dec 26, 2023 10:17 AM Reporting Lab: [place] [phone] Performing Lab: [place] [phone] [facility] COMPREHEN SIVE METABOLIC PANEL CARBON DIOXIDE, TOTAL [MOLES/VOLU ME] IN SERUM OR PLASMA 24 mmol/L 23 - 31 06/19 Specimen Type: PLASMA Comment: DLDLREF RANGE: NEAR [...] Dec 26, 2023 10:17 AM Reporting Lab: [address] [address] Performing Lab: [place] [phone] [facility] COMPREHEN SIVE METABOLIC PANEL GLUCOSE [MASS/VOLUM E] IN SERUM OR PLASMA 116 mg/dL 82 - 115 06/19 H Specimen Type: PLASMA Comment: DLDLREF RANGE: NEAR [...] Dec 26, 2023 10:17 AM Reporting Lab: [place] [phone] Performing Lab: [place] [phone] [place] [address] COMPREHEN SIVE METABOLIC PANEL PROTEIN [MASS/VOLUM E] IN SERUM OR PLASMA 7.1 g/dL 6.4 - 8.3 06/19 Specimen Type: PLASMA Comment: DLDLREF RANGE: NEAR [...] Dec 26, 2023 10:17 AM Reporting Lab: [place] [phone] Performing Lab: [place] [phone] [place] [address] COMPREHEN SIVE METABOLIC PANEL SODIUM [MOLES/VOLU ME] IN SERUM OR PLASMA 140 mmol/L 136 - 145 06/19 Specimen Type: PLASMA Comment: DLDLREF RANGE: NEAR [...] Dec 26, 2023 10:17 AM Reporting Lab: [place] [address] Performing Lab: [place] [address] [place] [address] COMPREHEN SIVE METABOLIC PANEL CHLORIDE [MOLES/VOLU ME] IN SERUM OR PLASMA 106 mmol/L 98 - 107 06/19 Specimen Type: PLASMA Comment: DLDLREF RANGE: NEAR [...] Dec 26, 2023 10:17 AM Reporting Lab: [place] [phone] Performing Lab: [address] COMPREH SIVE METABOLIC PANEL BILIRUBIN.T OTAL [MASS/VOLUM E] IN SERUM OR PLASMA 0.5 mg/dL 0.2 - 1.2 06/19 Specimen Type: PLASMA Comment: DLDLREF RANGE: NEAR [...] Dec 26, 2023 10:17 AM Reporting Lab: [place] [phone] Performing Lab: [place] [phone] [place] [address] COMPREHEN SIVE METABOLIC PANEL POTASSIUM [MOLES/VOLU ME] IN SERUM OR PLASMA 4.3 mmol/L 3.5 - 5.1 06/19 Specimen Type: PLASMA Comment: DLDLREF RANGE: NEAR [...] Dec 26, 2023 10:17 AM Reporting Lab: [place] [phone] Performing Lab: [place] [phone] [facility] COMPREHEN SIVE METABOLIC PANEL ANION GAP IN SERUM OR PLASMA 14.3 mmol/L 06/19 Specimen Type: PLASMA Comment: DLDLREF RANGE: NEAR [...] Dec 26, 2023 10:17 AM Reporting Lab: [address] [address] Performing Lab: [place] [phone] [facility] COMPREHEN SIVE METABOLIC PANEL GLOMERULAR FILTRATION RATE/1.73 SQ M.PREDICTED [VOLUME RATE/AREA] IN SERUM, PLASMA OR BLOOD BY CREATININE- BASED FORMULA (CKD-EPI 2020) 57.0 mL/min 06/19 Specimen Type: PLASMA Comment: DLDLREF RANGE: NEAR [...] Dec 26, 2023 10:17 AM Reporting Lab: [address] [address] Performing Lab: [address] [address] [facility] Vital Signs Combined list of inpatient and outpatient Vital Signs from Department of Defense and Veterans Affairs, ranging from 12 months to all on record, depending upon the facility. Vital Sign Value Date Comments Source SYSTOLIC BLOOD PRESSURE 114 12/26/2024 10:55:19 [facility] DIASTOLIC BLOOD PRESSURE 72 12/26/2024 10:55:19 [facility] PULSE OXIMETRY 94 12/26/2024 10:55:19 [facility] WEIGHT 297.8 12/26/2024 10:55:19 [facility] BMI 38 kg/m2 12/26/2024 10:55:19 [facility] PAIN 2 12/26/2024 10:55:19 [facility] TEMPERATURE 98.9 12/26/2024 10:55:19 [facility] PULSE 73 12/26/2024 10:55:19 [facility] RESPIRATION 20 12/26/2024 10:55:19 [facility] SYSTOLIC BLOOD PRESSURE 128 10/30/2024 09:02:00 [facility] DIASTOLIC BLOOD PRESSURE 78 10/30/2024 09:02:00 [facility] PULSE OXIMETRY 93 10/30/2024 09:02:00 [facility] PAIN 3 10/30/2024 09:02:00 [facility] TEMPERATURE 97.5 10/30/2024 09:02:00 [facility] PULSE 79 10/30/2024 09:02:00 [facility] RESPIRATION 18 10/30/2024 09:02:00 [facility] SYSTOLIC BLOOD PRESSURE 117 06/26/2024 09:59:48 [facility] DIASTOLIC BLOOD PRESSURE 73 06/26/2024 09:59:48 [facility] PULSE OXIMETRY 94 06/26/2024 09:59:48 [facility] WEIGHT 299.1 06/26/2024 09:59:48 [facility] BMI 38 kg/m2 06/26/2024 09:59:48 [facility] PAIN 4 06/26/2024 09:59:48 [facility] TEMPERATURE 97.9 06/26/2024 09:59:48 [facility] PULSE 72 06/26/2024 09:59:48 [facility] RESPIRATION 20 06/26/2024 09:59:48 [facility] Encounters Combined list of: 1) Encounters from Department of Veterans Affairs facilities going backup to the last 18 months, not all [place] inpatient encounters are included; 2) Encounters from the Department of Defense facilities going backup to 280 months. 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, 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 WANDA ALLEN K 08/23 [facility] Outpatient Encounter [id number] 09/07 [facility] Outpatient Encounter [id number] 09/22 [facility] Outpatient Encounter [id number] CATR[facility] RANDALL CATARINO 09/26 [facility] COMPRE [place] 1/ [id number] Diagnos is: ICD-10- CM H53.2 Diplopi a CATRINA RANDALL [place] 10/03 [facility] OFFICE O/P EST MOD 30 MIN [id number] Diagnos is: ICD-10- CM E11.42 Type 2 diabete s mellitu s with diabeti c polyneu SUNIL Bustos 10/25 [facility] Outpatient Encounter [id number] 12/16 [facility] MTMS BY PHARM EST 15 MIN [id number] Diagnos is: ICD-10- CM E11.9 Type 2 diabete s mellitu s without complic ations FABIAN,REBECC A JELENA 12/19 [facility] OFFICE O/P EST MOD 30 MIN [id number] Diagnos is: ICD-10- CM E11.8 Type 2 diabete s mellitu s with 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 complic ations SHELIA,ILIR Y L 12/25 [facility] DIAB MANAGE TRN PER INDIV [id number] Diagnos is: ICD-10- CM E11.8 Type 2 diabete s mellitu s with 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 complic ations KALEN-AGUSTIN YOLANDA A 12/25 [facility] Outpatient Encounter [id number] 01[facility]06 [facility] DIAB MANAGE TRN PER INDIV [id number] Diagnos is: ICD-10- CM E11.8 Type 2 diabete s mellitu s with 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 complic ations KALEN-AGUSTIN, YOLANDA A 01/08 [facility] QNHP OL DIG ASSMT&MGMT 5-10 [id number] Diagnos is: ICD-10- CM E11.9 Type 2 diabete s mellitu s without complic ations FABIAN,REBECC A JELENA 01/09 [facility] RMVL SKIN TAGS UP TO&INC 15 [id number] Diagnos is: ICD-10- CM L82.1 Other seborrh eic keratos is ILIR BASS 01/10 [facility] DEBRIDE NAIL 6 OR MORE [id number] Diagnos is: ICD-10- CM E11.42 Type 2 diabete s mellitu s with diabeti c polyneu ropathy FABIOLA FULLER E 01/30 [facility] Outpatient Encounter [id number] 02/19 [facility] OFFICE O/P EST LOW 20 MIN [id number] Diagnos is: ICD-10- CM 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 [id number] Diagnos is: ICD-10- CM Z02.89 Encount er for other adminis trative examronit hutchinson REGINE DEL ANGEL J 04/23 [facility] Outpatient Encounter [id number] 04/24 [facility] Outpatient Encounter [id number] 04/25 [facility] DEBRIDE NAIL 6 [place] MORE [id number] Diagnos is: ICD-10- CM E11.42 Type 2 diabete s mellitu s with diabeti c polyneu ropathy FABIOLA FULLER A E 05[facility] [id number] 05/15 [facility] Outpatient Encounter [id number] 06/26 [facility] OFFICE O/P EST HI 40 MIN [id number] Diagnos is: ICD-10- CM M47.26 Other spondyl osis with radicul opathy, lumbar region SHELIA,ILIR Y L 06/26 [facility] Outpatient Encounter [id number] 07/17 [facility] Outpatient Encounter [id number] 07/17 [facility] DEBRIDE NAIL 6 [place] MORE [id number] Diagnos is: ICD-10- CM E11.42 Type 2 diabete s mellitu s with diabeti c polyneu ropathy ELANA FULLERI A E 07/31 [facility] Outpatient Encounter [id number] 08/15 [facility] Outpatient Encounter [id number] 08/19 [facility] HC PRO PHONE CALL 5-10 MIN [id number] Diagnos is: ICD-10- CM M47.26 Other spondyl osis with radicul opathy, lumbar region DAVIE KATE 09/03 [facility] THERAPEUTI C EXERCISES [id number] Diagnos is: ICD-10- CM M47.26 Other spondyl osis with radicul opathy, lumbar region PAT LACY S 09/12 [facility] OFF/OP CNSLTJ NEW/EST MOD 40 [id number] Diagnos is: ICD-10- CM M48.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, lumbar region with neuroge shane claudic atANGIE Lobo 09/13 [facility] [place] 1/ [id number] Diagnos is: ICD-10- CM E11.8 Type 2 diabete s mellitu s with 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 complic ations CATRINA RANDALL 10/01 [facility] THERAPEUTI C EXERCISES [id number] Diagnos is: ICD-10- CM M47.26 Other spondyl osis with radicul opathy, lumbar region PAT LACY S 10/10 [facility] PH1 ASSMT&MGMT NQHP 5-10 [id number] Diagnos is: ICD-10- CM M79.644 Pain in right finger( s) NGOZIKAMAR DELAROSA 10/12 [facility] Outpatient Encounter [id number] 10/30 [facility] NJX AA&/STR[place] TFRM EPI L/[place] [id number] Diagnos is: ICD-10- CM M54.16 Radicul opathy, lumbar region ANGIE HOLLIDAY 10/30 [facility] Outpatient Encounter [id number] 11/01 [facility] OFFICE O/P EST LOW 20 MIN [id number] Diagnos is: ICD-10- CM E11.42 Type 2 diabete s mellitu s with diabeti c polyneu ropathy SUNIL CHEGN NNIFER 11/06 [facility] THERAPEUTI C EXERCISES [id number] Diagnos is: ICD-10- CM M47.26 Other spondyl osis with radicul opathy, lumbar region PAT LACY S 11/07 [facility] Outpatient Encounter [id number] 11/17 [facility] Outpatient Encounter [id number] 12/13 [facility] Outpatient Encounter [id number] 12/19 [facility] Outpatient Encounter [id number] 12/19 [facility] Outpatient Encounter [id number] 12/26 [facility] Outpatient Encounter [id number] 12/26 [facility] OFFICE O/P EST MOD 30 MIN [id number] Diagnos is: ICD-10- CM E11.8 Type 2 diabete s mellitu s with 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 complic ations ILIR BASS Y L 12/26 [facility] Outpatient Encounter [id number] 01/22 [facility] PH1 ASSMT&MGMT [facility] 5-10 [id number] [id number] Diagnos is: ICD-10- CM W19.XXX A Unspeci fied fall, initial encount Margarita Loera 01/25 [facility] Social History Combined list of available smoking, tobacco, and other social history from Department of Defense and Veterans Affairs facilities. Social History Type Response Date Comment Sourc e Tobacco smoking status [facility] VA-TOBACCO QUIT 15 YRS OR MORE 06/26/2024 [facility] History of tobacco use VA-TOBACCO FORMER USER 06/26/2024 [facility] History of tobacco use VA-TOBACCO FORMER USER 06/14/2023 [facility] History of tobacco use VA-TOBACCO FORMER USER 06/21/2022 [facility] History of tobacco use VA-TOBACCO FORMER USER 07/07/2021 [facility] History of tobacco use VA-TOBACCO FORMER USER 05/07/2020 [facility] History of tobacco use VA-TOBACCO FORMER USER 11/08/2018 [facility] History of tobacco use QUIT TOBACCO >7 YEARS AGO 8 [facility] History of tobacco use QUIT TOBACCO >7 YEARS AGO 8 [facility] History of tobacco use VA-TOBACCO FORMER USER 11/08/2017 [facility] History of tobacco use QUIT TOBACCO >7 YEARS AGO 0 [facility] History of tobacco use QUIT TOBACCO >7 YEARS AGO 8 [facility] History of tobacco use QUIT TOBACCO >7 YEARS AGO 7 [facility] Plan of Care List of future care activities from Department of Veterans Affairs facilities. Additional future care activities may be listed in the Assessment and Plan section. Date/Time Care Activity Care Activity Detail Facili ty 02/04/2025 AMBULATORY - NONE AMBULATORY - NONE [facility] [place] Advance Directives List of completed, amended, or rescinded Advance Directives on record at Department of Veterans Affairs facilities. An actual copy of the Directive is not included. Date Advance Directive Provider Source 05/21/2020 ADVANCE DIRECTIVE DISCUSSION DEEP SAGASUTME 03/29/2018 ADVANCE DIRECTIVE DISCUSSION DEEP SAGASTU[facility]
--- OUTSIDE RECORDS SUMMARY | 2025-01-25 08:53 | XMS_ITS | Clinical Summary ---
Author Organization [facility] Address [address] [place] [address] Care Team Providers Care Roofer Applicator Name Role Phone Yolis Lopez MD Primary Care Provider Allergies Active Allergy Reactions Criticality Noted Date Comments Penicillin G Hives,Rash Low 05/17/2007 Medications aspirin (Aspirin EC Adult Low Dose) 81 MG EC tablet Acti ve atenolol (Tenormin) 50 MG tablet Active atorvastatin (Lipitor) 80 MG tablet Take 1 tablet by mouth at bedtime 12/26/2023 Active chlorthalidone (Hygroton) 25 MG tablet Take 25 mg by mouth 06/26/2024 Active empagliflozin-m etFORMIN ER (Synjardy XR) 12.5-1000 MG 24 hr tablet Take 2 tablets by mouth in the morning. 06/26/2024 Active glipiZIDE (Glucotrol) 5 MG tablet Active Icosapent Ethyl (Vascepa) 1 g capsule Take 2 g by mouth 08/09/2024 Active insulin glargine-yfgn (Semglee-yfgn) 100 UNIT/ML injection Inject under the skin 06/26/2024 Active lisinopril 40 MG tablet 12/26/2023 Active metoprolol succinate XL (Toprol-XL) 100 MG 24 hr tablet Take 1 tablet by mouth Daily 06/26/2024 Active pregabalin (Lyrica) 150 MG capsule Take 150 mg by mouth 06/26/2024 Active Semaglutide, 2 MG/DOSE, 8 MG/3ML solution pen-injector Inject under the skin 06/26/2024 Active simvastatin (Zocor) 80 MG tablet Active Social History Tobacco Use Types Packs/Day Years Used Date Smoking Tobacco: Never Assessed Sex and Gender Information Value Date Recorded Sex Assigned at Not on file Legal Sex Male 7:06 PM EDT Gender Identity Not on file Sexual Orientation Not on file Last Filed Vital Signs Vital Sign Reading Time Taken Comments Blood Pressure 140/62 10/12/2024 1:07 PM EST Pulse 65 10/12/2024 1:07 PM EST Temperature 37.1 C (98.7 F) 10/12/2024 1:07 PM EST Respiratory Rate - - Oxygen Saturation 97% 10/12/2024 1:07 PM EST Inhaled Oxygen Concentration - - Weight 127 kg (280 lb) 10/12/2024 1:07 PM EST Height - - Body Mass Index - - Plan of Treatment Health Maintenance Due Date Last Done Comments Pneumococcal Vaccine: 65+ Years Completed 11/08/2017, 10/29/2016, 06/16/2007 Colonoscopy Discontinued 11/30/2021 Colorectal Cancer Screening Discontinued Influenza Vaccine Completed 06/26/2024, , 06/21/2022, Additional history exists CT Colonography Discontinued FIT-DNA Discontinued FIT Discontinued FOBT Discontinued Sigmoidoscopy Discontinued Insurance CCN Care Teams Roofer Applicator Relationship Specialty Start Date End Date Yolis oLpez MD [address] [address] PCP - General Family Medicine 10/12/24
--- OUTSIDE RECORDS SUMMARY | 2025-01-25 08:54 | XMS_ITS | Clinical Summary ---
Author Organization [id number] [address] [place] [address] Care Team Providers Care Clinical Dietician Name Role Phone No Pcp, No Pcp Primary Care Provider Unavailabl e Social History Tobacco Use Types Packs/Day Years Used Date Smoking Tobacco: Never Assessed Childcare Answer Date Recorded Childcare Unknown 08/12/2020 Employment Answer Date Recorded Employment Unknown 08/12/2020 Purpose - Life Answer Date Recorded Purpose and direction in life Unknown Sex and Gender Information Value Date Recorded Sex Assigned at Not on file Legal Sex Male 12:27 PM EST Gender Identity Not on file Sexual Orientation Not on file Plan of Treatment Not on file Medical Devices Not on file Insurance MEDICARE Care Teams Clinical Dietician Relationship Specialty Start Date End Date No Pcp, [place] [address] PCP - General Family Medicine 09/01/20
--- OUTSIDE RECORDS SUMMARY | 2025-01-25 08:55 | XMS_ITS | Clinical Summary ---
Author Organization [facility] Address [address] [place] [address] Care Team Providers Care Battery Installer Name Role Phone Unavailable Primary Care Provider Unavailabl e Social History Tobacco Use Types Packs/Day Years Used Date Smoking Tobacco: Never Assessed Sex and Gender Information Value Date Recorded Sex Assigned at Not on file Gender Identity Not on file Sexual Orientation Not on file Plan of Treatment Not on file
--- OUTSIDE RECORDS SUMMARY | 2025-01-25 08:55 | XMS_ITS | Referral Summary ---
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
[2025-01-25 09:04] VITALS: BP 164/103; PULSE 69; TEMP 36.9; O2SAT 96; BMI 38.5
--- NOTE | 2025-01-25 09:13 | CT_ITS ---
The [address] [address] Patient Name: MANDY GARCIA MRN: [id number] date: 1950 Sex: M Assigned Patient Location: ER Current Patient Location: ER Accession/Order Number: [id number] Exam Date: 01/25/2025 09:54 Report Date: 01/25/2025 10:02 At the request of: KEVIN PEREZ MD Procedure: CT chest wo con CT chest wo con 01/25/2025 9:38 AM SIGN AND SYMPTOMS: Acute right-sided rib pain after fall 2 days ago TECHNIQUE: Multidetector CT axial slices of the chest were obtained without IV contrast. Multiplanar reformats were performed and viewed on a separate workstation and reviewed to further define anatomy and possible pathology. CT was performed with one or more of the following dose reduction techniques: Automated exposure control, adjustment of the mA and/or kV according to patient size, or use of iterative reconstruction technique. COMPARISON: 08/12/2020. FINDINGS: Lower neck: Thyroid gland within normal limits, no supraclavicle adenopathy. Vessels: Atherosclerotic changes are noted in the thoracic aorta and coronary arteries. Mediastinum and Joceline: Within normal limits. Heart: Normal size. No pericardial effusion. Airways: Within normal limits Lungs: There is a 4 mm calcified granuloma in the right upper lobe posteriorly. There is a 3 mm calcified granuloma in the right middle lobe. Pleura: Within normal limits. Chest Wall: Within normal limits. Upper Abdomen: Within normal limits. Bones: Degenerative changes are noted in the thoracic spine. CT/CT chest wo con IMPRESSION: No acute displaced fracture. No acute cardiopulmonary pathology. Impression dictated by: Alejo Reynaga M.D. 01/25/2025 10:02 AM Dictation Location: [employer] Electronically authenticated by: [id number] Y Date: 01/25/2025 10:02
--- NOTE | 2025-01-25 11:15 | ED.GENADUL1 ---
HPI HPI - General Adult General Chief complaint: Fall Stated complaint: FALL, PAIN ON RIGHT SIDE Time Seen by Provider: 01/25/25 09:13 Source: patient Mode of arrival: Wheelchair Limitations: no limitations History of Present Illness HPI narrative: Patient is a 74-year-old male who is presenting to the ER today with chief complaint of right sided lateral and posterior thoracic rib pain. Patient fell a few days ago. Patient woke up Tuesday morning, had lost his balance, falling on the right side. Patient has some ecchymosis and bruising with some abrasions to the right lower posterior chest wall. Patient's been having some pain to the area to the right lower posterior and right lower lateral chest wall for the past few days. Patient has also been using heat for pain. Patient is at bedside. Patient is on no blood thinners. No significant severe pain with deep inspiration. Patient has no headache, neck pain. No abdominal pain, nausea, vomiting, or any other acute complaints. All systems are negative except as noted/marked. All systems reviewed and otherwise negative. Nurses note and vital signs reviewed and patient is not hypoxic. General: The patient appears well and in no apparent distress. Patient is resting comfortably on cart. Patient is not toxic, lethargic, or listless Skin: Warm, dry, no pallor noted. There is no rash noted. No petechiae, purpura. Patient has small abrasion to the right mid posterior lower thoracic chest wall, over ribs 9-10, abrasion and some mild ecchymosis. No hematoma. No crepitus. No pain to the right posterior chest wall with deep palpation to the right lateral and right anterior chest wall. Head: Normocephalic, atraumatic Eye: Normal conjunctiva, no drainage, EOMI. PERRL Ears, Nose, Mouth, and Throat: oral mucosa is moist. Nares patent. Mouth without vesicles. Cardiovascular: Regular Rate and Rhythm, no murmur, gallop, rub Respiratory: Patient is in no distress, no accessory muscle use, lungs are clear to auscultation, no wheezing, rales or rhonchi Back: non-tender, no CVA tenderness bilaterally to percussion. No CT LS midline pain GI: Soft, obese, no tenderness to palpation, no masses appreciated. No rebound, guarding, or rigidity noted. No distention Musculoskeletal: Patient has full range of motion of all of the extremities, no motor, sensory, or focal neurological deficits Neurological: A&O x4, normal speech Psychiatric: Cooperative Related Data Home Medications ?Medication ?Instructions ?Recorded ?Confirmed ascorbic acid (vitamin C) 500 mg 1,000 mg PO DAILY 01/25/25 01/25/25 tablet aspirin 325 mg tablet,delayed 325 mg PO DAILY 01/25/25 01/25/25 release (Ecotrin) atorvastatin 80 mg tablet (Lipitor) 80 mg PO QPM 01/25/25 01/25/25 chlorthalidone 25 mg tablet 25 mg PO DAILY 01/25/25 01/25/25 cholecalciferol (vitamin D3) 25 25 mcg PO DAILY 01/25/25 01/25/25 mcg (1,000 unit) tablet cyanocobalamin (vitamin B-12) 1,000 mcg PO DAILY 01/25/25 01/25/25 1,000 mcg tablet (Vitamin B-12) empagliflozin 12.5 mg-metformin ER 2 tab PO DAILY 01/25/25 01/25/25 1,000 mg tablet,extended rel 24 hr insulin aspart U-100 100 unit/mL 5 unit subcut DAILY 01/25/25 01/25/25 subcutaneous solution (Novolog U-100 Insulin aspart) insulin glargine 100 unit/mL (3 60 unit subcut BID 01/25/25 01/25/25 mL) subcutaneous pen lidocaine 5 % topical patch 3 patch topical DAILY 01/25/25 01/25/25 lisinopril 40 mg tablet 40 mg PO DAILY 01/25/25 01/25/25 metoprolol succinate 100 mg 100 mg PO DAILY 01/25/25 01/25/25 tablet,extended release 24 hr (Toprol XL) omeprazole 20 mg capsule,delayed 20 mg PO DAILY 01/25/25 01/25/25 release pregabalin 150 mg capsule (Lyrica) 150 mg PO BID 01/25/25 01/25/25 tamsulosin 0.4 mg capsule 0.4 mg PO .QHS 01/25/25 01/25/25 vitamin E 400 unit tablet 400 unit PO DAILY 01/25/25 01/25/25 Previous Rx's ?Medication ?Instructions ?Recorded hydrocodone 5 mg-acetaminophen 325 1 tab PO Q4H PRN pain #10 tabs 01/25/25 mg tablet Allergies Allergy/AdvReac Type Severity Reaction Status Date / Time Penicillins Allergy Intermediate Hives Verified 01/25/25 09:10 Opioid HPI Opioid Management Most Recent Opioid Data: Last Pain Scale 3 Today, 09:04 PFSH PFSH Social History Little interest or pleasure in doing things: not at all Feeling down, depressed, or hopeless: not at all Exam Constitutional Vital Signs, click to edit/add: Last Vital Signs Temp 98.5 F 01/25/25 09:04 Pulse 69 01/25/25 09:04 Resp 18 01/25/25 09:04 BP 164/103 H 01/25/25 09:04 Pulse Ox 96 01/25/25 09:04 O2 Del Method Room Air 01/25/25 09:04 Course Vital Signs Vital signs: Vital Signs Temperature 98.5 F 01/25/25 09:04 Pulse Rate 69 01/25/25 09:04 Respiratory Rate 18 01/25/25 09:04 Blood Pressure 164/103 H 01/25/25 09:04 Pulse Oximetry 96 01/25/25 09:04 Oxygen Delivery Method Room Air 01/25/25 09:04 Temperature 98.5 F 01/25/25 09:04 Pulse Rate 69 01/25/25 09:04 Respiratory Rate 18 01/25/25 09:04 Blood Pressure 164/103 H 01/25/25 09:04 Pulse Oximetry 96 01/25/25 09:04 Oxygen Delivery Method Room Air 01/25/25 09:04 Medical Decision Making MDM Narrative Medical decision making narrative: Secondary to patient's size and age, CT of the chest was ordered. CT of the chest showed no acute findings, a copy of the CT of the chest was given to the patient as well. Education on not using heat, but using ice was discussed. Patient does have lidocaine patches at home. Patient has not use any anti-inflammatories, he has no restrictions on taking anti-inflammatories. We have talked about using ice, patient was also given pain medication use as needed in the short-term. Patient is aware the pain will hurt for the next 2 to 3 weeks. Patient will follow-up with PCP. No question at discharge. Discharge Plan Discharge Chief Complaint: Fall Clinical Impression: Contusion of rib on right side Patient Disposition: Home, Self-Care Time of Disposition Decision: 11:13 Condition: Fair Prescriptions / Home Meds: New hydrocodone-acetaminophen 5-325 mg tablet 1 tab PO Q4H PRN (Reason: pain) Qty: 10 0RF No Action ascorbic acid (vitamin C) 500 mg tablet 1,000 mg PO DAILY aspirin [Ecotrin] 325 mg tablet,delayed release (DR/EC) 325 mg PO DAILY atorvastatin [Lipitor] 80 mg tablet 80 mg PO QPM chlorthalidone 25 mg tablet 25 mg PO DAILY cholecalciferol (vitamin D3) 25 mcg (1,000 unit) tablet 25 mcg PO DAILY cyanocobalamin (vitamin B-12) [Vitamin B-12] 1,000 mcg tablet 1,000 mcg PO DAILY empagliflozin-metformin 12.5-1,000 mg tablet, IR - ER, biphasic 24hr 2 tab PO DAILY insulin aspart U-100 [Novolog U-100 Insulin aspart] 100 unit/mL solution 5 unit subcut DAILY insulin glargine 100 unit/mL (3 mL) insulin pen 60 unit subcut BID lidocaine 5 % adhesive patch,medicated 3 patch topical DAILY Patient Comments: FOR BACK PAIN. REMOVE AFTER 12 HOURS Rx Instructions: leave on most painful area for up to 12 hrs lisinopril 40 mg tablet 40 mg PO DAILY metoprolol succinate [Toprol XL] 100 mg tablet extended release 24 hr 100 mg PO DAILY omeprazole 20 mg capsule,delayed release(DR/EC) 20 mg PO DAILY pregabalin [Lyrica] 150 mg capsule 150 mg PO BID tamsulosin 0.4 mg capsule 0.4 mg PO .QHS vitamin E 400 unit tablet 400 unit PO DAILY Print Language: Lithuanian Additional Instructions: Use ice 20 minutes on, 20 minutes off. Do this for the next 1 to 2 weeks. Do not use heat. Alternate Tylenol and either Motrin, Advil, or ibuprofen every 4 hours to help with pain. If you are having severe pain, substitute a Loving tablet instead of Tylenol. Do not take Tylenol and Loving at the same time, you may actually take too much Tylenol at 1 setting or in 1 day. Maximum Tylenol dose of Tylenol is 3000 mg a day. Maximum dose of either Motrin, Advil, or ibuprofen is 2400 mg a day. Use lidocaine patches as well. Follow-up with PCP if no improvement in the next 1 to 2 weeks. We have discussed at bedside that you will have pain for the next 3 to 4 weeks. Return back to the ER for any significant acute findings or pain. Referrals: NAMITA BASS [Primary Care Provider, [facility]] - 1 week Discharge Date/Time: 01/25/25 11:29
== END 2025-01-25 11:29 | disposition home or self-care (01) ==
PROVIDERS: Emergency Provider Emergency Medicine; PCP Family Medicine
DX: S20.211A Contusion of right front wall of thorax, initial encounter (principal); W18.39XA Other fall on same level, initial encounter
CPT/HCPCS: 71250; 99284